=== PATIENT | female | born 1970 | race Caucasian/White ===

== ENCOUNTER 2024-11-15 18:46 | Emergency (ER) | payer OTHER, SELFPAY ==
[2024-11-15 18:48] VITALS: BP 141/41; PULSE 104; RESP 20; TEMP 37.3; O2SAT 100
--- NOTE | 2024-11-15 18:50 | ED.WOUNDLAC ---
HPI - Wound/Laceration General Chief Complaint: Skin/Abscess/Foreign Body Stated Complaint: right leg lac Source: patient and RN notes reviewed Mode of arrival: ambulatory Limitations: no limitations History of Present Illness HPI narrative: 53-year-old female with complicated medical history presents with concern for a skin tear to her right lower leg. She reports chronic edema and she bumped her leg on a box and caused a skin tear. Reports it was bleeding a lot. She denies decreased strength, sensation, range of motion of the lower extremity. Related Data Home Medications ?Medication ?Instructions ?Recorded ?Confirmed ?Last Taken ?Type albuterol sulfate 90 mcg/actuation inhalation 11/15/24 Unknown History aerosol inhaler armodafinil 250 mg tablet mg PO 11/15/24 Unknown History cyclobenzaprine 10 mg tablet mg 11/15/24 Unknown History estradiol 0.01% (0.1 mg/gram) vaginal 11/15/24 Unknown History vaginal cream estradiol 0.1 mg/24 hr semiweekly 11/15/24 Unknown History transdermal patch furosemide 20 mg tablet mg 11/15/24 Unknown History galcanezumab-gnlm 120 mg/mL mg subcut 11/15/24 Unknown History subcutaneous pen injector (Emgality Pen) hydroxyzine HCl 25 mg tablet mg 11/15/24 Unknown History ibandronate 150 mg tablet mg PO 11/15/24 Unknown History methocarbamol 500 mg tablet mg 11/15/24 Unknown History morphine 30 mg tablet,extended mg PO 11/15/24 Unknown History release oxycodone-acetaminophen 5 mg-325 tablet 11/15/24 Unknown History mg tablet potassium citrate 10 mEq (1,080 meq PO 11/15/24 Unknown History mg) tablet,extended release pregabalin 200 mg capsule mg 11/15/24 Unknown History rabeprazole 20 mg tablet,delayed mg PO 11/15/24 Unknown History release zonisamide 100 mg capsule mg PO 11/15/24 Unknown History Allergies Allergy/AdvReac Type Severity Reaction Status Date / Time propoxyphene (From Darvon) Allergy Unknown Unknown Verified 11/15/24 18:53 Review of Systems Review of Systems: CONSTITUTIONAL: Denies malaise, chills, sweats, or fever. SKIN: Reports skin tear to the right lower leg MUSCULOSKELETAL: Denies muscle skeletal pain NEUROLOGIC: Denies numbness, weakness All systems reviewed & are unremarkable except as noted in HPI and below PMFSH Comments At time of signature, agree with nursing past medical, surgical, social and family history. There is no relevant family history pertinent to the presenting complaint Exam Narrative: GENERAL: Well-appearing, well-nourished, and in no acute distress. HEAD: Normocephalic, atraumatic. EYES: PERRLA, conjunctivae clear, and EOMI. ENT: Mucous membranes moist. NECK: Supple. No lymphadenopathy CHEST: Clear to auscultation. No respiratory distress. HEART: Regular rate and rhythm. SKIN: Warm, dry. 14 cm x 8cm skin tear noted to the anterior right lower leg NEURO: Alert and oriented x3. PSYCH: Normal mood and affect Course Course Emergency Course: Patient is aware of diagnosis, understands and agrees to treatment plan. Anticipatory guidance given. Patient agrees to follow-up as directed and is aware of reasons to seek care at the emergency department. Portions of this record may have been created with voice recognition software Level of Care: Express Care Visit Vital Signs Vital signs: Reviewed. Procedures Laceration Laceration 1: Date: 11/15/24 Time: 18:52 Site: lower extremity Side (If applicable): right Size (cm): 14 Description: flap Depth: simple, single layer Pre-repair: wound explored and irrigated ====== Skin Level ====== Skin layer closed with: steri strips ====== Subcutaneous Layer ====== ====== Muscle Layer ====== ====== Tendon Layer ====== Dressing: Steri-Strips used to pull as much skin as possible to cover the wound bed, Surgicel applied to wound bed that was still exposed MDM - Wound/Laceration MDM Narrative Medical decision making narrative: Wound explored for foreign body and copious irrigation provided with no evidence of FB. There was no evidence of tendon or nerve lacerations. The wound was closed with Steri-Strips. A sterile dressing was then applied and anticipatory guidance was provided. Tetanus prophylaxis not given Differential Diagnosis Differential diagnosis: Likely laceration, abrasion and avulsion of skin Critical Care Time Critical Care Time Critical Care Time: No Discharge Plan Discharge Clinical Impression: Skin tear Patient Disposition: Home Condition: Stable Instructions: Skin Tear (ED) Additional Instructions: Leave the dressing in place for 24 hours. In 24 hours remove the outer layer of the dressing, do not pull off the inner layer of dressing as this may cause rebleeding. After 24 hours you may shower, you can let soap and water run over the wound but do not scrub it. If you can keep it dry another 48 hours it is ideal. When the paper tape strips start to get loose you can soak them off in the shower. Keep the area dressed with a nonstick dressing until it is healed. The skin will be delicate and susceptible to re-injury. If you notice signs of infection such as redness, warmth, swelling, increased pain you should follow-up with your primary care doctor for re-evaluation. Patient Language: Lithuanian Prescriptions: No Action cyclobenzaprine 10 mg tablet methocarbamol 500 mg tablet rabeprazole 20 mg tablet,delayed release (DR/EC) PO estradiol 0.1 mg/24 hr patch semiweekly morphine 30 mg tablet extended release PO zonisamide 100 mg capsule PO oxycodone-acetaminophen 5-325 mg tablet potassium citrate 10 mEq (1,080 mg) tablet extended release PO hydroxyzine HCl 25 mg tablet furosemide 20 mg tablet estradiol 0.01 % (0.1 mg/gram) cream VAGINAL albuterol sulfate 90 mcg/actuation HFA aerosol inhaler INHALATION ibandronate 150 mg tablet PO pregabalin 200 mg capsule armodafinil 250 mg tablet PO Emgality Pen 120 mg/mL pen injector SUBCUT Follow-up/Referrals: UNKNOWN,DOCTOR [Primary Care Provider] - Time of Disposition: 19:15
--- OUTSIDE RECORDS SUMMARY | 2024-11-15 18:55 | XMS_ITS | Encounter Summary ---
Author Organization [facility] Healthcare Address [address] [place] [address] Care Team Providers Care Traveling Operator Name Role Phone Marine Mayers MD Primary Care Provider Encounter Details Date Type Department Care Team (Late st Contact Info) Description 11/06/2021 Telephone [facility] [address] [place] [address] Maylin Perez MD [address] [facility] [phone] [place], [place] [id number] Social History Tobacco Use Types Packs/Day Years Used Date Smoking Tobacco: Some Days Cigarettes Started: 1994; Last attempted to quit: 2006 Smokeless Tobacco: Never Comments:couple times a hillary h Alcohol Use Standard Drinks/Week Comments No 0 (1 standard drink = 0.6 oz pur e alcohol) AUDIT-C Answer Date Recorded Q1: How often do you have a drink containing alcohol? Never 11/06/2021 Q2: How many drinks containi ng alcohol do you have on a typical day when you are drinking? Patient does not drink Q3: How often do you have si x or more drinks on one occasion? 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 Never 11/06/2021 9:47 AM Angely Wheeler RN Q2: How many drinks containing alcohol do you have on a typical day when you are drinking? Patient does not drink 11/06/2021 9:47 AM Angely Wheeler RN Q3: How often do you have six or more drinks on one occasion? Never 11/06/2021 9:47 AM Angely Wheeler RN documented as of this encounter Plan of Treatment Not on file documented as of this encounter Goals Goal Patient Goal Type Associated Problems Recent Progress Patient-Stated? Author CCM Chronic Pain Care Plan Chronic Care Management No change(09/12 12:36 PM CDT) No Madhuri Baxter Note: Problem: Chronic Pain Goals: 1. Minimize further functional decline 2. Maximize quality of life 3. Control pain Strategies: - Activity/exercise program recommendation - Conservative stepwise pain medicine strategy with multi-disciplinary approach - Recommend healthy lifestyle strategies and compensatory methods as needed Reduce the likelihood of falling Lifestyle No Marylou Dalal Note: Below are four things you can do to prevent falls: 1. Begin an exercise program to improve your leg strength & balance 2. Ask your doctor or pharmacist to review your medicines 3. Get annual eye check-ups & update your eyeglasses 4. Make your home safer by: Removing clutter & tripping hazards Putting railings on all stairs & adding grab bars in the bathroom Having good lighting, especially on stairs Contact your local community or [facility] medical center, [place] for information on exercise, fall prevention programs, or options for improving home safety. documented as of this encounter Visit Diagnoses Not on filedocumented in this encounter Care Teams Traveling Operator Relationship Specialty Start Date End Date Marine Mayers MD PCP - General 07/12/16 documented as of this encounter
--- OUTSIDE RECORDS SUMMARY | 2024-11-15 18:55 | XMS_ITS | Encounter Summary ---
Author Organization [facility] Healthcare Address [address] [place] [address] Care Team Providers Care Central Service Tech Name Role Phone Marine Mayers MD Primary Care Provider Encounter Details Date Type Department Care Team (Late st Contact Info) Description 09/22/2024 Results Follow-Up [facility] Primary Care at [facility] [address], [place] [address] Marine Mayers MD [address] [place] [address] [address] [place] [address] Dexa Axial Skeleton Bone Density 1 or 2 Site, SCREENING MAMMOGRAM BILATERAL W SHARDA Social History Tobacco Use Types Packs/Day Years Used Date Smoking Tobacco: Some Days Cigarettes 0.3 12 Started: 12/13/2010; Last attempted to quit: 12/13/2022 Smokeless Tobacco: Never Comments:Less than 5 cigaret os a month Passive Exposure Comments:5-6 cigarettes a month Alcohol Use Standard Drinks/Week Comments No 0 (1 standard drink = 0.6 oz pur e alcohol) [facility] Utilities Answer Date Recorded In the past 12 months has e electric, gas, oil, or water company threatened to shut off services in your home? No 02/26/2023 Social Connection and Isolation Panel [NHANES] A nswer Date Recorded In a typical week, how many times do you talk on the phone with family, friends, or neighbors? Patient declined 02/26/2023 How often do you get togethe r with friends or relatives? Patient declined 02/26/2023 How often do you attend oriental orthodox or caodaism serv ices? Patient declined 02/26/2023 Do you belong to any clubs o r organizations such as oriental orthodox groups, unions, fraternal or athletic groups, or school groups? Patient declined 02/26/2023 How often do you attend meet ings of the clubs or organizations you belong to? Patient declined 02/26/2023 Are you , , di vorced, , never , or living with a partner? Never 02/26/2023 AUDIT-C Answer Date Recorded Q1: How often do you have a drink containing alcohol? Never 09/21/2024 Q2: How many drinks containi ng alcohol do you have on a typical day when you are drinking? Patient does not drink Q3: How often do you have si x or more drinks on one occasion? Never 09/21/2024 Overall Financial Resource Strain (CARDIA) Answe r Date Recorded How hard is it for you to pa y for the very basics like food, housing, medical care, and heating? Not hard at all 02/26/2023 PHQ-2 Answer Date Recorded PHQ-2 Total Score (If total score is 3 or more points, staff should administer the PHQ-9) 3 08/31/2024 Hunger Vital Sign Answer Date Recorded Within the past 12 months, y ou worried that your food would run out before you got the money to buy more. Never true 03/30/20 Within the past 12 months, t he food you bought just didn't last and you didn't have money to get more. Never true 03/30/2024 PRAPARE - Transportation Answer Date Re corded In the past 12 months, has l ack of transportation kept you from medical appointments or from getting medications? No 02/12 In the past 12 months, has l ack of transportation kept you from meetings, work, or from getting things needed for daily living? No 02/26/2023 Housing Stability Vital Sign Answer Kemal e Recorded In the last 12 months, was t here a time when you were not able to pay the mortgage or rent on time? No 02/26/2023 In the last 12 months, how many places have you lived? 1 02/26/2023 In the last 12 months, was t here a time when you did not have a steady place to sleep or slept in a mcc (including now)? No 02/26/2023 PHQ-9 Answer Date Recorded PHQ-9 Total Score 7 08/31/2024 Personal Safety Answer Date Recorded Have you ever been in or are you currently in a harmful physical or emotional relationship or is someone making you feel afraid or unsafe? 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 Author CCM Chronic Pain Care Plan Chronic Care Management No change(09/12 12:36 PM CDT) No Madhuri Baxetr Note: Problem: Chronic Pain Goals: 1. Minimize [...] on stairs Contact your local community or senior center for information on exercise, fall prevention programs, or options for improving home safety. documented as of this encounter Visit Diagnoses Not on filedocumented in this encounter Care Teams Central Service Tech Relationship Specialty Start Date End Date Marine Mayers MD PCP - General 07/12/16 documented as of this encounter
--- OUTSIDE RECORDS SUMMARY | 2024-11-15 18:55 | XMS_ITS | Encounter Summary ---
Author Organization [facility] Healthcare Address [address] [place] [address] Care Team Providers Care Assistant Professor Nurse Education Name Role Phone Marine Mayers MD Primary Care Provider Encounter Details Date Type Department Care Team (Late st Contact Info) Description 09/30/2022 Orders Only [facility] [place] [facility] [address] [place] [address] Teresa Piña RN Social History Tobacco Use Types Packs/Day Years Used Date Smoking Tobacco: Some Days Cigarettes 0.1 12 Started: 1994; Last attempted to quit: 2006 Smokeless Tobacco: Never Comments:4 cigarettes per mo nt Passive Exposure Comments:5-6 cigarettes a month Alcohol Use Standard Drinks/Week Comments No 0 (1 standard drink = 0.6 oz pur e alcohol) AUDIT-C Answer Date Recorded Q1: How often do you have a drink containing alcohol? Never 07/29/2022 Q2: How many drinks containi ng alcohol do you have on a typical day when you are drinking? Patient does not drink Q3: How often do you have si x or more drinks on one occasion? Never 07/29/2022 PHQ-2 Answer Date Recorded PHQ-2 Total Score (If total score is 3 or more points, staff should administer the PHQ-9) 6 07/03/2022 Hunger Vital Sign Answer Date Recorded Within the past 12 months, y ou worried that your food would run out before you got the money to buy more. Patient declined Within the past 12 months, t he food you bought just didn't last and you didn't have money to get more. 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 Gender Identity Female 11/17/2020 1:49 PM CDT Sexual Orientation Straight 03/07/2019 4: 08 AM METER INSTALLER documented as of this encounter Plan of [...] Diagnoses Not on filedocumented in this encounter Orders Medications Ordered That Dejan ht Not Have Been Administered Count Last Ordered Date First Ordered Date iohexoL (OMNIPAQUE) 300 mg i odine/mL injection solution 1.5 mL 1 09/30/2022 lidocaine PF (XYLOCAINE) 10 mg/mL (1 %) preservative free injection 100 mg 1 09/30/2022 ROPivacaine (NAROPIN) 2 mg/m L (0.2 %) preservative free injection 8 mg 1 09/30/2022 triamcinolone (KENALOG) 40 m g/mL injection 80 mg 1 09/30/2022 documented in this encounter Care Teams Assistant Professor Nurse Education Relationship Specialty Start Date End Date Marine Mayers MD PCP - General 07/12/16 documented as of this encounter
--- OUTSIDE RECORDS SUMMARY | 2024-11-15 18:55 | XMS_ITS | Referral Summary ---
Author Organization [facility] Address [address] [facility] [place] [address] Care Team Providers Care Chief I Dispatcher Name Role Phone Marine Mayers MD Primary Care Provider [phone] Encounters Date Type Department Care Team Description 11/03/[address] [facility] [facility] [address] [facility] [address] [place], [place] [id number] Maylin Perez MD Sacroiliitis (Primary Dx); Sacroiliac dysfunction 10/27/2024 Telephone [facility] [address] [facility] [address] [place] [address] Cassidy Aparicio [employer]FT [employer] Switch patch 09/22/2024 Results Follow-Up [facility] at [facility] [address] [facility] [address] [place] [address] Marine Mayers MD Dexa Axial Skeleton Bone Density 1 or 2 Site, SCREENING MAMMOGRAM BILATERAL W SHARDA 09/22/2024 12:48 PM CDT - 09/22/2024 11:59 PM CDT Hospital Encounter [facility] [address] [place] [address] Discharge Disposition: Discharge to home or self care 09/22/2024 12:30 PM CDT - 09/22/2024 11:59 PM CDT Hospital Encounter [facility] [address] [place] [address] Encounter for breast cancer screening using non-mammogram modality; Vitamin D deficiency; Other specified disorders of bone density and structure, multiple sites Discharge Disposition: Discharge to home or self care 09/21/2024 12:12 PM CDT - 09/21/2024 11:59 PM CDT Hospital Encounter [facility] [address] [place] [address] Advanced Medicine [address] [place] [address] Maylin Perez MD Chronic bilateral low back pain with bilateral sciatica; Sacroiliitis Discharge Disposition: Discharge to home or self care 09/17/[address] [facility] [address] [place] [address] [facility] [address] [place] [address] Maylin Perez MD PMC Preprocedure 09/15/[address] [facility] [address] [place] [address] [facility] [address] [place] [address] Maylin Perez MD 09/13/2024 Results Follow-Up [facility] [address] [place] [address] [address] [place] [address] Cassidy Aparicio NP Pap only 09/09/[address] [facility] [facility] [address] [place] [address] Maylin Perez MD Sacroiliitis (Primary Dx) 09/03/2024 Telephone [facility] [address] [place] [address] [address] [place] [address] Cassidy Aparicio NP Vaginal Pap Smear 08/31/2024 3:00 PM CDT Office Visit [facility] [address] [place] [address] [address] [place] [address] Cassidy Aparicio NP Well woman exam (Primary Dx); Routine gynecological examination; Hormone replacement therapy (HRT); Encounter for screening mammogram for breast cancer 08/18/[address] [facility] General Neurology [address] [facility] 6[address] [place] [address] Mina Owen MD Armodafinil PA Renewal from Last 3 Months Allergies Active Allergy Reactions Criticality Noted Date Comments Naproxen Sodium Shortness of breath High 12/20/2020 Pt denies. Neck pain, JARA, upset stomach Atorvastatin Muscle pain Medium 12/20/2020 Hips and lower spine Bisacodyl Itching Medium Carvedilol Hypotension,Fatig ue High Not an allergy. Adverse effect due to known effects on blood pressure. Dextroamphetamine-Ampheta mine Other (See comments) Medium Manic episode Duloxetine Other (See comments) High Parkinson's symptoms. Dexmethylphenidate Other (See comments) Low 12/20/2020 XR , stomach pain, exacerbated migraines Hydroxyzine Pamoate Other (See comments) High 12/20/2020 Unsure of her exact reaction Lamotrigine Itching Medium [place]is Other (See comments) Low Incontinence Methylphenidate Other (See comments) Medium Manic episode Nsaids (Non-Steroidal Anti-Inflammatory Drug) Other (See comments) Low Hs of acute kidney failure Other Hives Medium 07/04/2020 Chicken pox virus Paroxetine Other (See comments) Low Ineffective and heightened side effects such as anhedonia Propoxyphene Itching Medium Phenazopyridine Itching,Other (See comments) Low Reaction: Itching, , Reaction: itching, Ketorolac Other (See comments) Low 01/06/2017 If taking more than 7 days in a row Tricyclic Antidepressants And Tricyclic Compounds Other (See comments) Low Caused a feeling of detachment Valsartan Hypotension High Venlafaxine Other (See comments) High Hypertension. Lisdexamfetamine Other (See comments) Low 01/06/2017 SOB, severe JARA, heart racing, blurry vision, hallucinations in peripheral, occasional insomnia Wool Itching Low 01/31/2010 Ezetimibe Other (See comments) Low 12/29/2017 Bones ache and muscle aches Medications fluoride, sodium, (CLINPRO 5000) 1.1 % paste as directed 0 0 11/02/19 15 Active cetirizine (ZyrTEC) 10 mg tabletIndicatio ns:Seasonal Allergic Rhinitis Take 1 tablet (10 mg total) by mouth 2 (two) times a day Pt taking prn. Active cholecalciferol (VITAMIN D-3) 1,000 unit Take 4 tablet/capsul e (4,000 Units total) by mouth nightly Active red yeast rice 600 mg tabletIndicatio ns:supplement Take 2 tablets by mouth nightly Active multivitamin tabletIndicatio ns:Vitamin Deficiency Prevention Take 1 tablet by mouth nightly Active walker miscIndications :Spinal stenosis of lumbar region, unspecified whether neurogenic claudication present 1 Units once for 1 dose Rollator with seat - and brakes And basket Provider plus in [place] 1 each 1 05/22/19 22 Active aspirin 81 mg enteric coated tablet Take 1 tablet (81 mg total) by mouth daily Active furosemide (LASIX) 20 mg tablet Take 1 tablet (20 mg total) by mouth daily as needed (swelling) 90 tablet 3 10/06/[address] (ACIPHEX) 20 mg EC tablet TAKE 1 TABLET BY MOUTH EVERY DAY 90 tablet 3 12/01/19 24 Active magnesium oxide 500 mg capsule Take by mouth A ctive ibandronate (BONIVA) 150 mg tablet Take 1 tablet (150 mg total) by mouth every 30 (thirty) days Take in AM with glass of water prior to food, don't lie down nor eat for 60 minutes. 3 tablet 3 12/31/19 24 025 Active albuterol HFA (PROVENTIL HFA,VENTOLIN HFA,PROAIR HFA) 90 mcg/actuation inhaler Inhale 2 puffs every 6 (six) hours as needed for wheezing 3 each 12/31/19 24 025 Active naloxone (NARCAN) 4 mg/actuation spray,non-aeros ol Administer 1 spray into affected nostril(s) as needed for opioid reversal Call 911. Administer a single spray in one nostril. Repeat every 3 minutes as needed if no or minimal response. 1 each 01/01/20 24 Active galcanezumab-gn lm (Emgality Pen) 120 mg/mL pen injector Inject 1 mL under the skin every 30 (thirty) days 1 mL 04/20/19 25 Active SUMAtriptan (IMITREX) 100 mg tablet Take 1 tablet (100 mg total) by mouth once as needed for migraine for up to 1 dose 9 tablet 20 25 Active zonisamide (ZONEGRAN) 100 mg capsule Take 1 capsule every day in the evening. 90 capsule 3 04/20/19 25 Active spironolactone (ALDACTONE) 25 mg tablet Take 1 tablet (25 mg total) by mouth 2 (two) times a day 60 tablet 11 05/03/19 25 Active cyclobenzaprine (FLEXERIL) 10 mg tablet Take 1 tablet (10 mg total) by mouth 3 (three) times a day as needed for muscle spasms for muscle spasms 90 tablet 11 06/04/19 25 Active armodafiniL (NUVIGIL) 250 mg tablet TAKE 1 TABLET BY MOUTH ONCE DAILY NEEDED 30 tablet 5 08/17/19 25 Active methocarbamoL (ROBAXIN) 500 mg tablet Take 1 tablet (500 mg total) by mouth 4 (four) times a day as needed for muscle spasms 120 tablet 11 08/31/19 25 Active hydrOXYzine (ATARAX) 25 mg tablet TAKE 2 TABLETS BY MOUTH 2 TIMES A DAY. 360 tablet 3 09/09/19 25 Active pregabalin (LYRICA) 200 mg capsule Take 1 capsule (200 mg total) by mouth 3 (three) times a day 90 capsule 3 09/16/19 25 Active estradioL (ESTRACE) 0.01 % (0.1 mg/gram) vaginal cream Insert 1/2 gram vaginally every night for 1 week, then Friday// Friday. 42.5 g 5 10/05/19 25 026 Active potassium citrate ER (UROCIT-K) 10 mEq (1,080 mg) CR tablet TAKE 2 TABLETS BY MOUTH TWICE A DAY 120 tablet 6 10/26/19 25 Active estradioL (CLIMARA) 0.1 mg/24 hrIndications:V asomotor Symptoms associated with Menopause Place 1 patch on the skin once a week for 7 days 4 patch 2 10/28/19 25 Active promethazine (PHENERGAN) 25 mg tablet TAKE 1 TABLET BY MOUTH EVERY 8 HOURS NEEDED FOR NAUSEA AND VOMITING 90 tablet 2 10/30/19 25 Active oxyCODONE-aceta minophen (PERCOCET) 5-325 mg per tabletIndicatio ns:Pain Take 1 tablet by mouth every 6 (six) hours as needed for pain 120 tablet 11/05/19 25 Active morphine ER (MS CONTIN) 30 mg 12 hr tablet Take 1 tablet (30 mg total) by mouth 3 (three) times a day 90 tablet 11/05/19 25 Active potassium citrate ER (UROCIT-K) 10 mEq (1,080 mg) CR tablet TAKE 2 TABLETS BY MOUTH TWICE A DAY 400 tablet 1 03/20/20 24 025 Discontinued promethazine (PHENERGAN) 25 mg tablet TAKE 1 TABLET BY MOUTH EVERY 8 HOURS NEEDED FOR NAUSEA OR VOMITING. 120 tablet 1 09/01/19 25 025 Discontinued oxyCODONE-aceta minophen (PERCOCET) 5-325 mg per tabletIndicatio ns:Pain Take 1 tablet by mouth every 6 (six) hours as needed for pain 120 tablet 10/05/19 25 025 Discontinued(R eorder) morphine ER (MS CONTIN) 30 mg 12 hr tablet Take 1 tablet (30 mg total) by mouth 3 (three) times a day 90 tablet 10/05/19 25 025 Discontinued(R eorder) estradioL (VIVELLE-DOT) 0.1 mg/24 hrIndications:V asomotor Symptoms associated with Menopause Place one patch on the skin twice weekly. 24 patch 1 10/05/19 25 025 Discontinued(A lternate therapy) Active Problems Problem Noted Date Diagnosed Date Sacroiliitis 11/03/2024 Mild intermittent asthma 12/30/2023 Overview (12/30/2023): She uses albuterol as needed Assessment & Plan (07/12/2024 1:52 PM CDT): Stay on albuterol as needed Assessment & Plan (12/30/2023 3:47 PM CDT): Stay on albuterol as needed Hypoxemia 08/04/2023 History of colon polyps 03/02/2023 Rectal prolapse 02/25/2023 Overview (06/23/2023): She's going to get repair in September [address] Mia Marc Assessment & Plan (06/23/2023 2:36 PM CDT): She's going to get the surgical repair in Dr. Mia Marc Hypokalemia 02/25/2023 Urinary incontinence 09/13/2022 Overview (01/14/2023): The patient has incontinence and has been evaluated by PT who is recommending a pelvic floor stimulator to help treat her symptoms of urgency and leaking. She has a weak abodominal and pelvic musculature and difficult to improve with back issues. She's doing the pelvic floor therapy and it's helping with urinary incontinence. She's also using the rectal probe but sometimes it's a little painful. She still has some fecal incontinence. She doesn't know if this is going to help enough and she may still need the recommended surgery. Assessment & Plan (01/14/2023 10:28 AM CDT): Recommed the pelvic floor stimulator and this will help improve her symptoms. Follow up again with the surgeon to evaluate for other options. Assessment & Plan (09/13/2022 10:23 AM CDT): Recommed the pelvic floor stimulator and this will help improve her symptoms. Weight loss 09/02/2022 Overview (09/02/2022): She's lost weight over the past 3 years unintentionally 25+ pounds. She was as high as 212 at one point. She did eat a lot of chocolate and she's stopped that altogether. She can eat other things in moderation. Assessment & Plan (09/02/2022 3:41 PM CDT): We should make sure you are on your cancer screening. Due for colonoscopy 02/2022 in the fall and due for mammogram in 09/2022. Spinal cord stimulator status 11/06/2021 Sacroiliac dysfunction 10/02/2021 Other specified disorders of bone density and structure, multiple sites 07/02/2021 Overview (07/12/2024): No falls nor fractures Assessment & Plan (07/12/2024 1:50 PM CDT): On vit D 2000 international units per day and ibandronate monthly HPV vaccine counseling 04/26/2021 Assessment & Plan (04/26/2021 3:41 PM STITCH BURNISHER): HPV counseling given. Patient would like vaccine series. Informed patient per ACIP guidelines, vaccine only available up to age 46. Patient states pharmacy instructed her if she brought her pap results and a written rx for HPV vaccine from her provider, that she could get vaccine (off label). Await pap results. Acute right-sided low back pain 07/18/2020 Acute postoperative pain 07/18/2020 Chronic bilateral low back pain with bilateral s ciatica 05/22/2020 Major depressive disorder, recurrent episode, mo derate 05/08/2020 Vertical strabismus of left eye 03/21/2020 Assessment & Plan (03/21/2020 5:25 PM STITCH BURNISHER): Excellent horizontal eye alignment with small over correction vertical strabismus. Prism bifocal spectacles to be prescribed. Patient wishes to pursue further strabismus surgery. Medicare annual wellness visit, subsequent 03/13 Overview (07/12/2024): Overall stable back pain. Quit tobacco 1ppd in 2006 and now rare cigarettes - quit for surgery for rectal prolapse surgery in 10/06. Mammogram 09/2023, due in 2024 Colonoscopy 02/2023 polyps due again in 02/2026 Flu annually 2023 Tdap 12/2019 DEXA 11/29 normal DEXA due now Assessment & Plan (06/23/2023 2:33 PM CDT): Assessment & Plan: I recommend that you follow a diet that is high in fruits, vegetables, and lean meat such as chicken or turkey. Would avoid processed foods which can be high in sugar and salt.. I recommend using beneficial fats such as olive oil, nuts, seeds, and fish. Would avoid saturated animal fats. Please stay physically active to the extent that you are able. If you have not received communication about test results within 7 days of the test being performed, please contact the office. Add exercise as tolerated Increase fruits and vegetables 4-5 servings a day Order Routine labs drawn Follow up 1 year, sooner if needed Take medications as directed Sign up for [email or web address] to see your results and/or send messages Assessment & Plan (07/03/2022 10:14 AM CDT): Assessment & Plan: I recommend that you follow a diet that is high in fruits, vegetables, and lean meat such as chicken or turkey. Would avoid processed foods which can be high in sugar and salt.. I recommend using beneficial fats such as olive oil, nuts, seeds, and fish. Would avoid saturated animal fats. Please stay physically active to the extent that you are able. If you have not received communication about test results within 7 days of the test being performed, please contact the office. Add exercise as tolerated Increase fruits and vegetables 4-5 servings a day Order Routine labs drawn Follow up 1 year, sooner if needed Take medications as directed Sign up for [email or web address] to see your results and/or send messages Assessment & Plan (07/02/2021 9:18 AM CDT): Assessment & Plan: I recommend that you follow a diet that is high in fruits, vegetables, and lean meat such as chicken or turkey. Would avoid processed foods which can be high in sugar and salt.. I recommend using beneficial fats such as olive oil, nuts, seeds, and fish. Would avoid saturated animal fats. Please stay physically active to the extent that you are able. If you have not received communication about test results within 7 days of the test being performed, please contact the office. Add exercise as tolerated Increase fruits and vegetables 4-5 servings a day Order Routine labs drawn Follow up 1 year, sooner if needed Take medications as directed Sign up for [email or web address] to see your results and/or send messages Assessment & Plan (03/13/2020 1:27 PM STITCH BURNISHER): Assessment & Plan: I recommend that you follow a diet that is high in fruits, vegetables, and lean meat such as chicken or turkey. Would avoid processed foods which can be high in sugar and salt.. I recommend using beneficial fats such as olive oil, nuts, seeds, and fish. Would avoid saturated animal fats. Please stay physically active to the extent that you are able. If you have not received communication about test results within 7 days of the test being performed, please contact the office. Add exercise as tolerated Increase fruits and vegetables 4-5 servings a day Order Routine labs drawn Follow up 1 year, sooner if needed Take medications as directed Sign up for [email or web address] to see your results and/or send messages Lumbar foraminal stenosis 12/13/2019 Overview (06/23/2023): She takes methacarbamol during the day and morphine tid and cyclobenzaprine at night time. She's going to get a nerve ablation Assessment & Plan (06/23/2023 2:33 PM CDT): She takes methacarbamol during the day and morphine tid and cyclobenzaprine at night time. She's going to get a nerve ablation Assessment & Plan (03/25/2023 10:10 AM STITCH BURNISHER): The patient apparently has been discussing using cannabinoids with her other physicians. Apparently was advised that she can use this for pain. I advised her against smoking or vaping the substance due to pulmonary issues. 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 Defective binocularity visual confusion and diplopia. Strabismus surgery to be performed. Vertical strabismus of right eye 12/09/2019 Intractable chronic migraine without aura and without status migrainosus 09/13/2019 Assessment & Plan (02/26/2022 10:18 AM STITCH BURNISHER): The patient is a 51-year-old female with migraine headaches. At this point she is doing very well on her current dose zonisamide and Emgality. I renewed both medications for her. I also renewed her sumatriptan. As long as things continue to do well she can follow up with me annually. She is to contact me in the interim with any concerns or questions. This was a telemedicine visit with Ms. Judge which took place via tele doc During the visit, I was located in my office and the patient was located at home in the [facility]. The patient visit started at 10:00 a.m. and ended at 10:18 a.m.. The patient has been informed that the visit may not be secure and acknowledged the information. I have explained the option of participating in a telephone or video visit during the [facility]-19 public health emergency to the patient. After being given an opportunity to ask questions about and discuss this type of visit, the patient verbally consented to proceeding with the telephone/video visit. The patient understands that this service replaces an office visit and they may be billed and/or responsible for any applicable copayments. Patrick Blount MD I have explained the option of participating in a telephone or video visit during the [facility]-19 public health emergency to the patient. After being given an opportunity to ask questions about and discuss this type of visit, the patient verbally consented to proceeding with the telephone/video visit. The patient understands that this service replaces an office visit and they may be billed and/or responsible for any applicable copayments. @SIGENC2@ @WI@ Assessment & Plan (04/24/2021 2:13 PM STITCH BURNISHER): The patient is a 50-year-old female with migraine headaches. At this point she is doing very well with her current regimen. She is tolerating the medication well and only experiencing about 2 migraines per month. They are adequately aborted with sumatriptan and naproxen. She is trying to deal with dental issues using the dental school but it is a relatively slow process. This should reduce her headaches further once it is complete. I will plan on seeing her back in 6 months though I encouraged her to contact me in the interim with any concerns or questions.This was a telemedicine visit with Ms. Judge which took place via tele doc During the visit, I was located in my office and the patient was located at home in the [facility]. The patient visit started at 1:47 p.m. and ended at 2:18 p.m.. The patient has been informed that the visit may not be secure and acknowledged the information. I have explained the option of participating in a telephone or video visit during the COVID-19 public health emergency to the patient. After being given an opportunity to ask questions about and discuss this type of visit, the patient verbally consented to proceeding with the telephone/video visit. The patient understands that this service replaces an office visit and they may be billed and/or responsible for any applicable copayments. Patrick Blount MD I have explained the option of participating in a telephone or video visit during the COVID-19 public health emergency to the patient. After being given an opportunity to ask questions about and discuss this type of visit, the patient verbally consented to proceeding with the telephone/video visit. The patient understands that this service replaces an office visit and they may be billed and/or responsible for any applicable copayments. @SIGENC2@ @WI@ Assessment & Plan (12/05/2020 8:30 AM CDT): The patient continues to have severe migraines. The past we have had her on Aimovig 140 mg monthly. This did not have the same benefit as Emgality, so we are going to switch her back to that. I will arrange for to have starter kit set aside at the office. I have sent in a prescription for her maintenance dose. I am also going to put her on zonisamide as she has had significant efficacy from Topamax in the past. This may, in addition reduce her migraines, also potentially reduce the apneic episodes she experiences the night. I will see her back in approximately 2-3 months. This was a telemedicine visit with Ms. Judge which took place via tele doc During the visit, I was located in my office and the patient was located at home in the [facility]. The patient visit started at 7:55 a.m. and ended at 8:30 a.m.. The patient has been informed that the visit may not be secure and acknowledged the information. I have explained the option of participating in a telephone or video visit during the COVID-19 public health emergency to the patient. After being given an opportunity to ask questions about and discuss this type of visit, the patient verbally consented to proceeding with the telephone/video visit. The patient understands that this service replaces an office visit and they may be billed and/or responsible for any applicable copayments. Patrick Blount MD I have explained the option of participating in a telephone or video visit during the COVID-19 public health emergency to the patient. After being given an opportunity to ask questions about and discuss this type of visit, the patient verbally consented to proceeding with the telephone/video visit. The patient understands that this service replaces an office visit and they may be billed and/or responsible for any applicable copayments. 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 Has base issues with eye balance Additionally, there may be some contribution of tear film irreg. Will try to adapt to prism in glasses Reassure no medical issues found on exam today Myopia of both eyes with astigmatism 06/25/2019 Assessment & Plan (06/25/2019 12:44 PM CDT): Persistent right hypertropia and exotropia. Patient not improved with Fresnel spectacle wear. Does not want to wear spectacles. Other mechanical strabismus 06/25/2019 Hypertropia of right eye 06/23/2019 Overview (01/23/2021): Surgery x 2 with LTychsen Assessment & Plan (01/23/2021 9:15 AM CDT): Surgery x 2 with Wilfredo Feels that eyes still want to cross all the time. Has some residual shadowing and diplopia. In glasses with prism- Just got on thurs and can't tell if they are helping. Released by Wilfredo/Lee Osorio Assessment & Plan (11/10/2020 11:05 AM CDT): Improved s/p strabismus surgery. Will increase bifocal. If still having problems, pt to call and get in to fit with prism. Assessment & Plan (06/25/2019 12:39 PM CDT): Persistent right hypertropia and exotropia. Patient not improved with Fresnel spectacle wear. Strabismus surgery to be scheduled. Symptomatic cholelithiasis 06/03/2019 Overview (06/03/2019): Added automatically from request for surgery [id number] Assessment & Plan (06/22/2019 9:07 AM CDT): Diet as tolerated. Okay to return to work with light duty. No heavy lifting greater than 20 lb for 4 weeks. No submerging incisions for 4 weeks. Please call for any further questions or concerns. Assessment & Plan (06/03/2019 9:54 AM STITCH BURNISHER): Given the findings on imaging and clinical history I will set the patient up for cholecystectomy. Risks and benefits have been explained to include bleeding, infection and post cholecystectomy diarrhea. Pre-admission testing will be sent in. Consent to be signed. Type and screen to be ordered. All questions have been answered. Postlaminectomy syndrome 04/28/2019 Periumbilical abdominal pain 04/26/2019 Assessment & Plan (04/26/2019 11:49 AM STITCH BURNISHER): Occurs intermittently and describes as sharp/burning. Pt says it has improved recently. Pt has had EGD and colonoscopy without explanation of pain. She does have fibromyalgia and back issues which makes this pain likely neuropathic. Pt is already taking lyrica and narcotics for fibro/chronic pain. Will order CT of abdomen with contrast to complete workup. Gastroparesis 04/26/2019 Assessment & Plan (04/26/2019 11:13 AM STITCH BURNISHER): Likely due to polypharmacy including chronic narcotic use. Pt was found to have retained food on EGD suggesting gastroparesis. Discussed importance of sticking to low fat, low fiber meals and eating 5-6 small meals throughout the day. Will also try patient on Reglan 5mg TID prior to meals. She denies past history of seizures, movement disorders, or other neuro disorders. Nausea without vomiting 04/26/2019 Assessment & Plan (04/26/2019 12:01 PM STITCH BURNISHER): See gastroparesis for plan Hormone replacement therapy (HRT) 02/14/2019 Assessment & Plan (09/07/2024 8:05 AM CDT): Risks and benefits of hormone replacement (HRT) for vasomotor symptoms related to menopause discussed. Patient aware risks associated with HRT include increased risk of blood clots, heart attack, stroke, and increased risk of breast cancer. Patient verbalizes understanding of risk and benefits and wishes to proceed with HRT. - Continue estradiol 1 mg daily. Patient/pharmacy to call when refill needed. Assessment & Plan (09/04/2023 4:27 PM CDT): Risks and benefits of hormone replacement (HRT) for vasomotor symptoms related to menopause discussed. Patient aware risks associated with HRT include increased risk of blood clots, heart attack, stroke, and increased risk of breast cancer. Patient verbalizes understanding of risk and benefits and wishes to proceed with HRT. Assessment & Plan (03/19/2022 6:08 PM STITCH BURNISHER): Risks vs benefits of HRT discussed such as increased risk of blood clots leading to possible heart attack, stroke, and increased risk of breast cancer; pt. verbalizes understanding and wishes to proceed with HRT. Assessment & Plan (04/26/2021 3:19 PM STITCH BURNISHER): Risks vs benefits of HRT discussed such as increased risk of blood clots leading to possible heart attack, stroke, and increased risk of breast cancer; pt. verbalizes understanding and wishes to proceed with HRT. Refills sent to pharmacy. Assessment & Plan (02/14/2019 11:58 AM STITCH BURNISHER): Continue estradiol as directed. Risks vs benefits of HRT discussed such as increased risk of blood clots leading to possible heart attack, stroke, and increased risk of breast cancer; pt. verbalizes understanding and wishes to proceed with HRT. Lower abdominal pain 02/10/2019 Overview (02/10/2019): Added automatically from request for surgery [id number] Assessment & Plan (02/10/2019 2:57 PM CDT): Pt says the pain feels like it is raw so it kind of saldaña. She is weaning off of methadone and on multiple pain medications. She also gets constipated easily. Colonoscopy. She did mention that she has a history of endometriosis and had surgery a few years ago which helped the pain related to this. Pt says the pain does feel similar to when she was having adhesions due to endometriosis. I told her we will rule out GI origin but encouraged her to follow up with a Solid Waste Analyst doctor as well. Dysphagia 02/10/2019 Overview (02/10/2019): Added automatically from request for surgery [id number] Assessment & Plan (04/26/2019 11:59 AM STITCH BURNISHER): Pt says no recent issues with swallowing. Will refer to ENT if this issue re- occurs. Assessment & Plan (02/10/2019 2:54 PM CDT): Patient has issues with choking on my own spit about 3-4 times a week. She says it has occurred more often recently. Will setup EGD. Drug-induced constipation 02/10/2019 Assessment & Plan (04/26/2019 11:59 AM STITCH BURNISHER): Pt says she is having BM almost everyday but is having 1-2 on [place] stool scale. Likely due to chronic narcotic use. Will have patient use Miralax for constipation. Assessment & Plan (02/10/2019 2:55 PM CDT): Pt on narcotic medications which is likely causing issues with constipation. She uses Mineral oil which helps sometimes. Advised to take Miralax daily and she can use mineral oil as needed along with Miralax for more severe constipation. Other hemorrhoids 02/10/2019 Assessment & Plan (02/10/2019 2:53 PM CDT): Pt says she feels something popping out from time to time when she wipes. Upon exam, I do not see any external hemorrhiods so likely due to internal. Will have her try prep H suppositories. Colonosocopy will be setup. Chronic use of opiate for therapeutic purpose Overview (01/14/2023): She's using these under the guidance of pain management. Assessment & Plan (01/14/2023 10:29 AM CDT): Continue to follow up with pain management. Per the pain management doctor she's going to try medical marijuana and she's doing this to try and reduce her opioid use. 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 Assessment & Plan (12/30/2017 7:35 PM CDT): BMI Follow-up includes: exercise counseling. Shortness of breath 12/29/2017 Overview (12/29/2017): She notes occasional dyspnea, on exam decreased breath sounds on the lef Assessment & Plan (12/29/2017 1:27 PM CDT): -check cxray Diplopia 01/06/2017 Assessment & Plan (06/25/2019 12:40 PM CDT): Persistent right hypertropia and exotropia. Patient not improved with Fresnel spectacle wear. Strabismus surgery to be scheduled. 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 Still with chronic pain. Mammogram 03/02 Colonoscopy due now Flu annually 11/30 Tdap 10/26 DEXA 11/28 normal I have reviewed the Medicare Wellness Questionnaire/Health Risk Assessment and discussed it with the patient. Paper form scanned into the electronic record. The patient was given a copy of the medicare prevention plan outlining medical conditions, risk factors and status of prevention measures. The patient filled out a depression screen, functional assessment screen, health risk assessment and other physicians list. All elements of the exam were completed as outlined by [facility] Assessment & Plan (03/08/2019 1:45 PM STITCH BURNISHER): I have reviewed the Medicare Wellness Questionnaire/Health Risk Assessment and discussed it with the patient. Paper form scanned into the electronic record. The patient was given a copy of the medicare prevention plan outlining medical conditions, risk factors and status of prevention measures. The patient filled out a depression screen, functional assessment screen, health risk assessment and other physicians list. All elements of the exam were completed as outlined by CMS Assessment & Plan: I recommend that you follow a diet that is high in fruits, vegetables, and lean meat such as chicken or turkey. Would avoid saturated animal fats. Please stay physically active to the extent that you are able. If you have not received communication about test results within 7 days of the test being performed, please contact the office. Follow up 1 year, sooner if needed Take medications as directed Sign up for [email or web address] to see your results and/or send messages Assessment & Plan (12/30/2017 7:30 PM CDT): I have reviewed the Medicare Wellness Questionnaire/Health Risk Assessment and discussed it with the patient. Paper form scanned into the electronic record. The patient was given a copy of the medicare prevention plan outlining medical conditions, risk factors and status of prevention measures. The patient filled out a depression screen, functional assessment screen, health risk assessment and other physicians list. All elements of the exam were completed as outlined by [facility] Assessment & Plan: I recommend that you follow a diet that is high in fruits, vegetables, and lean meat such as chicken or turkey. Would avoid saturated animal fats. Please stay physically active to the extent that you are able. If you have not received communication about test results within 7 days of the test being performed, please contact the office. Follow up 1 year, sooner if needed Take medications as directed Sign up for [email or web address] to see your results and/or send messages Bilateral leg edema 12/23/2016 Overview (01/14/2023): Related to inactivity and improves by morning after elevation. She's sleeping in a chair about 4 days per week. Legs can be elevated. She takes triam/hctz once per day. Swelling improved. She has some intermittent SOB but that's mostly during the night with her central sleep apnea and uses the 1 L of oxygen at night time. The furosemide is helpful and needed about 1/2 of the days of the week. Assessment & Plan (07/12/2024 1:45 PM CDT): Stable on the spironolactone 50 mg per day. Once you are on the triam/hctz you could see if the hair loss diminshes some and then increase the furosemide as needed to control swelling Assessment & Plan (12/30/2023 3:37 PM CDT): You could stop the triam/hctz and do a trial of spironolactone 25 mg per day. Once you are on the triam/hctz you could see if the hair loss diminshes some and then increase the furosemide as needed to control swelling Assessment & Plan (06/23/2023 2:38 PM CDT): Stay on the triamterene and the furosemide as needed. Get LE doppler Assessment & Plan (01/14/2023 10:32 AM CDT): I would stay on the triam/hctz daily and add furosemide 3-5 days to see if it helps. One banana per day when you are on it. Keep a low salt diet. Stay on the potassium and magnesium supplement as needed for cramping. Assessment & Plan (09/02/2022 3:34 PM CDT): I would stay on the triam/hctz daily and add furosemide 3-5 days to see if it helps. One banana per day when you are on it. Keep a low salt diet. Assessment & Plan (09/26/2020 12:05 PM CDT): Stay on triamterene/hctz daily as needed Assessment & Plan (03/14/2020 7:52 PM STITCH BURNISHER): Stay on triam/hctz once per day Assessment & Plan (03/08/2019 1:33 PM STITCH BURNISHER): Continue the triamterene/hctz and continue low salt exercise. Assessment & Plan (12/23/2016 1:57 PM CDT): -trial of triam/hctz 1/2 tablet per day as needed for swelling Fibrositis 11/06/2015 Overview (07/17/2016): Fibromyalgia Anxiety 11/06/2015 Overview (07/18/2016): Anxiety Atypical migraine 11/06/2015 Overview (03/08/2019): Chronic migraine without aura -she takes imitrex mixed with anaprox and promethazine and takes as needed and gets migraines 1-2 times per week. -her vision problems sometimes precipitate some of her migraines -she's now on anti-migraines shots and they help her some but they have been too expensive for her. -sees neurology every 6 months Assessment & Plan (04/20/2024 10:36 AM STITCH BURNISHER): The patient is a 53-year-old female with migraine headaches. This point she does fairly well on Emgality and zonisamide for prevention. She also uses sumatriptan and naproxen for rescue purposes. If she has a persistent refractory headache, asked her to contact me and we can try a Medrol Dosepak. Recently she had a 5 day migraine that did not resolve with her typical rescue medications. With the thought that that is atypical for her, I will plan on following up with her annually. I asked her to contact me if she does have another episode similar to the recent refractory headache. All questions were answered. This was a telemedicine visit with Ms. Judge which took place via tele doc During the visit, I was located in my office and the patient was located at her friend's house in the [facility]. The patient visit started at 8:45 a.m. and ended at 10:00 a.m.. The patient has been informed that the visit may not be secure and acknowledged the information. I have explained the option of participating in a telephone or video visit during the [facility]- public [facility] emergency to the patient. After being given an opportunity to ask questions about and discuss this type of visit, the patient verbally consented to proceeding with the telephone/video visit. The patient understands that this service replaces an office visit and they may be billed and/or responsible for any applicable copayments. Patrick Blount MD I have explained the option of participating in a telephone or video visit during the COVID-19 public health emergency to the patient. After being given an opportunity to ask questions about and discuss this type of visit, the patient verbally consented to proceeding with the telephone/video visit. The patient understands that this service replaces an office visit and they may be billed and/or responsible for any applicable copayments. @SIGENC2@ @ME@ Assessment & Plan (06/23/2023 2:37 PM CDT): The patient is doing very well on a combination of zonisamide and Emgality for her migraines and follow up with Dr. Blount Assessment & Plan (03/25/2023 10:09 AM STITCH BURNISHER): The patient is doing very well on a combination of zonisamide and Emgality for her migraines. I renewed both medications for her today. She has sumatriptan use rescue purposes. I will plan on seeing her back in 1 year. This was a telemedicine visit with Ms. Judge which took place via tele doc During the visit, I was located in my office and the patient was located at her friend's house in the state [facility]. The patient visit started at 9:57 a.m. and ended at 10:11 a.m.. The patient has been informed that the visit may not be secure and acknowledged the information. I have explained the option of participating in a telephone or video visit during the [facility] [place] [address] emergency to the patient. After being given an opportunity to ask questions about and discuss this type of visit, the patient verbally consented to proceeding with the telephone/video visit. The patient understands that this service replaces an office visit and they may be billed and/or responsible for any applicable copayments. Patrick Blount MD I have explained the option of participating in a telephone or video visit during the [facility]-[address] [place] [address] emergency to the patient. After being given an opportunity to ask questions about and discuss this type of visit, the patient verbally consented to proceeding with the telephone/video visit. The patient understands that this service replaces an office visit and they may be billed and/or responsible for any applicable copayments. @SIGENC2@ @WI@ Assessment & Plan (07/03/2022 10:14 AM CDT): Sumatriptan as needed Assessment & Plan (07/02/2021 9:26 AM CDT): Per Dr. Blount Assessment & Plan (08/05/2019 10:45 AM CDT): The patient is a 48-year-old female with migraine headaches. At this point she has had a significant reduction in her migraines after having received Botox. She is now down from 6 or 7 headache days per week to 2 headache days per week. The plan is to repeat the injections in early September. At that time I will move the injections on the frontalis superiorly in order to reduce any changes in her ability to raise her eyebrows or open her eyes widely. She has also proceeding with her application for reduced cost or free Aimovig 140 mg syringes. We will continue to assist her in that endeavor as the combination of Botox and Aimovig will likely further reduce her headache frequency significantly. I was with the patient for over 30 minutes [id number] and spent >50% of the visit reviewing pertinent test results with the patient, counseling them on medication management options and lifestyle changes that could benefit symptoms, answering their questions, and discussing follow-up planning This was a telemedicine visit with Ms. Judge which took place via an interactive audio and video telecommunications system. During the visit, I was located at the office and the patient was located at home. The session started at 10:08 a.m. and ended at 10:40 a.m.. The patient has been informed that the visit may not be secure and acknowledged the information. I have explained the option of participating in a telephone or video visit during the COVID-19 public [facility] emergency to the patient. After being given an opportunity to ask questions about and discuss this type of visit, the patient verbally consented to proceeding with the telephone / video visit. The patient understands that this service replaces an office visit and they may be billed and/or responsible for any applicable copayments. Assessment & Plan (06/14/2019 12:04 PM STITCH BURNISHER): Botox injection #1 Assessment & Plan (04/19/2019 10:07 AM STITCH BURNISHER): At this point the patient is experiencing about 4 headache days per week. We're going to try to get her on Aimovig 140 mg monthly. Failing this, we will try to get approval for Botox injections. I've asked her to contact me after she finds out whether not she is going to get patient assistance for Aimovig. At this point I'm going to continue her on Emgality samples until we obtain approval for 1 or the other. With regard to her chronic pain we spent quite a bit of time discussing intrathecal pain pump. I gave her the name of a [facility] physician who actually implants though so that she can go have a consultation regarding that possibility. I will see her back in 2 months. I was with the patient for over 30 minutes and spent >50% of the visit reviewing pertinent test results with the patient, counseling them on medication management options and lifestyle changes that could benefit symptoms, answering their questions, and discussing follow-up planning Assessment & Plan (03/08/2019 1:24 PM STITCH BURNISHER): -she takes imitrex mixed with anaprox and promethazine and takes as needed and gets migraines 1-2 times per week Assessment & Plan (11/12/2018 1:54 PM CDT): The patient is a 47-year-old female with frequent migraine headaches well controlled on her current medication. At this point were continue the patient on Emgality samples until we find out whether not she is approved for the Aimovig assistance program. I filled out paperwork for her today. We also spent some time discussing her failed back syndrome treatment and possible interventions. At this point I plan on seeing her back in a few months, but will certainly remain available for any thing that comes up in the interim. Thank result in care of your patient. I was with the patient for over 30 minutes and spent >50% of the visit reviewing pertinent test results with the patient, counseling them on medication management options and lifestyle changes that could benefit symptoms, answering their questions, and discussing follow-up planning Assessment & Plan (09/10/2018 2:06 PM CDT): The patient is a 47-year-old female with severe migraine headaches. The patient's headaches have significantly improved on Emgality, but she cannot afford the medication and is not eligible for the patient assistance program. Thus, I am going to switch her to Aimovig in the hope that she will be eligible for the assistance program through [employer]. I have given her 2 months of medication today to get her through until we find out about her eligibility. I will see her back at the end of that time. She is to contact me during the interim with any concerns or questions. I was with the patient for over 30 minutes and spent >50% of the visit reviewing pertinent test results with the patient, counseling them on medication management options and lifestyle changes that could benefit symptoms, answering their questions, and discussing follow-up planning Assessment & Plan (07/21/2018 1:25 PM CDT): The patient is a 47-year-old female with migraine with aura. Because of the frequency of her migrainous headaches, she will need to be on a preventive medication. She had done well on Topamax in the past but she has a strong history of kidney stones. Thus, I would try an alternative. Because of the large number of medications she is on, I would like to try her on Emgality. This should not interact with her other pain medication or anticonvulsants. This should also not be affected by any renal disease that she experiences as a result of her kidney stones. I went over the injection protocol with her as well as the side effect profile. I demonstrated the injection for her. I gave her her 1st 2 doses today is a sample along with a co-pay assistance card. I will see her back in 6 weeks to go over the efficacy. I have encouraged her to contact me in the interim with any concerns or questions. Assessment & Plan (12/29/2017 1:11 PM CDT): Continue medications for migraines. You are getting too many of these and the intensity is increasing. Cannot take topamax because of history of kidney stones. Get neurology consult for evaluation of migraines. Assessment & Plan (12/23/2016 1:41 PM CDT): -continue imitrex or treximet or relpax as needed Gastroesophageal reflux disease with esophagitis 11/06/2015 Overview (09/26/2020): REFLUX ESOPHAGITIS -she had GERD in past and treated well with rabeprazole. 04/2019 EGD normal except some retained food in the stomach. Assessment & Plan (07/12/2024 1:48 PM CDT): On rabeprazole and add famotidine at bedtime 20 mg to see if it helps. Assessment & Plan (06/23/2023 2:31 PM CDT): Stable on rabeprazole Assessment & Plan (07/03/2022 10:23 AM CDT): Stable on rabeprazole Assessment & Plan (07/02/2021 9:27 AM CDT): On rabeprazole twice daily Assessment & Plan (09/26/2020 12:05 PM CDT): Stay on the rabeprazole and can use tums as needed. Can also use phenergan as needed for associated nausea and keep head of bed elevated. Assessment & Plan (03/13/2020 1:52 PM STITCH BURNISHER): On rabeprazole and stay on this Assessment & Plan (03/08/2019 1:43 PM STITCH BURNISHER): Stay on rabeprazole and get EGD per GI. Assessment & Plan (12/29/2017 1:25 PM CDT): Controlled on aciphex and may try a less strong medication called famotidine 20 mg twice per day to see if this controls syptoms. Assessment & Plan (12/23/2016 1:38 PM CDT): -restart the rabeprazole for 3 months and if symptoms recur then need EGD Hyperlipidemia 11/06/2015 Overview (09/26/2020): HYPERLIPIDEMIA NEC/NOS -tries to eat low fat, TG improved a lot on red yeast rice Assessment & Plan (06/23/2023 2:31 PM CDT): Stay on red yeast rice to help with TG. Healthy diet as tolerated Assessment & Plan (07/03/2022 5:24 PM CDT): Stay on red yeast rice to help with TG. Healthy diet as tolerated Assessment & Plan (07/02/2021 9:18 AM CDT): Stay on red yeast rice to help with TG and the LDL is still high - try to work on low fat diet to help this also Assessment & Plan (09/26/2020 12:08 PM CDT): Stay on red yeast rice to help with TG and the LDL is still high - try to work on low fat diet to help this also Assessment & Plan (03/13/2020 1:29 PM STITCH BURNISHER): Recheck and consider additional med Assessment & Plan (12/30/2017 7:32 PM CDT): -dietary control Medical examinations/reports status 11/06/2015 Overview (07/18/2016): Medicare annual wellness visit, subsequent Vitamin D deficiency 11/06/2015 Overview (12/29/2017): VITAMIN D DEFICIENCY NOS -she's on vitamin D 2,000 IU per day Assessment & Plan (07/12/2024 1:49 PM CDT): Stay on vitamin D 2000 international units per day Assessment & Plan (07/03/2022 10:18 AM CDT): Stay on vitamin D 2000 international units per day Assessment & Plan (07/02/2021 9:18 AM CDT): Stay on vitamin D 2000 international units per day Assessment & Plan (09/26/2020 12:05 PM CDT): Stay on vitamin D 2000 international units per day Assessment & Plan (03/13/2020 1:52 PM STITCH BURNISHER): Stay on vitamin D 2000 international units per day Assessment & Plan (03/08/2019 1:44 PM STITCH BURNISHER): Stay on vitamin D 2,000 international units per day Assessment & Plan (12/29/2017 1:22 PM CDT): Stay on vitamin D 2,000 IU per day Assessment & Plan (12/23/2016 1:38 PM CDT): -continue vit D 6,000 IU per day Calculus of kidney 11/06/2015 Overview (12/23/2016): Kidney stones -she passed a stone in 11/28 and was able to take meds and stay home Assessment & Plan (12/29/2017 1:12 PM CDT): Stay on urocit-K Assessment & Plan (12/23/2016 1:40 PM CDT): -pain meds as needed Narcolepsy 02/12/2014 Overview (03/08/2019): Narcolepsy and circadian rhythm disorder -she takes nuvigil as needed for driving Assessment & Plan (07/12/2024 1:49 PM CDT): Stay on nuvigil as needed on days that needs to be more alert Assessment & Plan (12/30/2023 3:27 PM CDT): Stay on nuvigil as needed on days that needs to be more alert Assessment & Plan (07/03/2022 5:26 PM CDT): On nuvigil Assessment & Plan (07/02/2021 9:26 AM CDT): Stable on nuvigil Assessment & Plan (03/08/2019 1:25 PM STITCH BURNISHER): Stay on nuvigil as needed Assessment & Plan (12/29/2017 1:09 PM CDT): Stay on nuvigil Assessment & Plan (12/23/2016 1:41 PM CDT): -nuvigil as needed Central sleep apnea 08/28/2013 Overview (03/13/2020): She sees Praneeth Bahena about this and Dr. Carmen is prescribing the BIPAP. She has headaches related to her central sleep apnea. Assessment & Plan (03/13/2020 1:41 PM STITCH BURNISHER): Continue to see Praneeth Bahena, [employer] with Dr. Carmen for the BIPAP Assessment & Plan (12/29/2017 1:08 PM CDT): Continue to see Dr. Carmen to order and prescribe and follow this. 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 She's working with pain management and is doing some marijuana now to control pain and reduce her oxycodone use. 04/2019 xrays: Multilevel spondylosis with spondylolistheses and reversal of the normal cervical lordosis. Progressive and seeing Dr. Little in neurosurgery. -she's on ms-contin 90 mg po bid and oxycodone/apap as needed and lyrica and flexeril.. Had surgery in 2009. Dr. Perez pain management and is seeing her every 2 months. She has chronic severe pain that she's complaining of. Assessment & Plan (12/30/2023 3:49 PM CDT): Follow with Dr. Perez and Dr. Little in neurosurgery. Likely need surgical repair. Assessment & Plan (07/03/2022 5:25 PM CDT): Follow with Dr. Perez and Dr. Little in neurosurgery. Likely need surgical repair. Assessment & Plan (07/02/2021 4:44 PM CDT): Follow with Dr. Perez Assessment & Plan (07/13/2020 1:22 PM CDT): She is status post lumbar decompression in 2009 and multiple steroid injections without improvement. Follows with Dr. Perez in Pain Management --Continue home medications: MSER 60 mg BID, Lyrica 200 mg TID, PRN Flexeril, PRN methocarbamol, scheduled APAP, PRN oxycodone Assessment & Plan (07/12/2020 10:15 PM CDT): She is status post lumbar decompression in 2009 and multiple steroid injections without improvement. Follows with Dr. Perez in Pain Management --Continue home medications: MSER 60 mg BID, Lyrica 200 mg TID, PRN Flexeril, PRN methocarbamol, PRN APAP, PRN oxycodone Assessment & Plan (03/14/2020 7:51 PM STITCH BURNISHER): Follow with Dr. Perez for pain control. She's on many pain medication but still has chronic severe pain. Xrays in 04/2019 of lumbar spine stable compared with prior xrays. Assessment & Plan (03/08/2019 1:42 PM STITCH BURNISHER): Follow-up with Dr. Perez. Assessment & Plan (12/29/2017 1:13 PM CDT): Continue methadone and oxycodone/apap as needed Assessment & Plan (12/23/2016 1:42 PM CDT): -continue pain meds per pain management Fibromyalgia 10/04/2010 Overview (09/26/2020): -she takes lyrica twice per day and flexeril as needed and helps. She takes oxycodone as needed Assessment & Plan (07/03/2022 10:24 AM CDT): Stay on lyrica and flexeril as needed and on chronic narcotics per pain management Assessment & Plan (07/02/2021 9:27 AM CDT): Stay on lyrica and flexeril as needed Assessment & Plan (03/08/2019 1:24 PM STITCH BURNISHER): Stay on lyrica and flexeril as needed Assessment & Plan (12/29/2017 1:12 PM CDT): Stay on lyrica and flexeril as needed Assessment & Plan (12/23/2016 1:44 PM CDT): -continue lyrica and flexeril as needed Anaclitic depression 10/04/2010 Lumbar radiculopathy 10/04/2010 Peripheral nerve disease 10/04/2010 Other spondylosis, lumbar region 10/04/2010 Postlaminectomy syndrome of lumbar region 2010 Low back pain 10/04/2010 Obstructive sleep apnea syndrome 02/26/2010 Sleep apnea in adult Overview (07/02/2021): Wears BIPAP at night; central CPAP. Seeing Dr. Cloud for central sleep apnea (was seeing Dr. Bahena). Assessment & Plan (07/02/2021 9:21 AM CDT): We are going to put her on zonisamide for migraine prevention. In this is a weak carbonic anhydrase inhibitor which may stimulate respiration due to a mild acidosis. She is to continue to use her current BiPAP. Assessment & Plan (12/05/2020 8:28 AM CDT): The patient is a 48-year-old female with reported history of central sleep apnea. We are going to put her on zonisamide for migraine prevention. In this is a weak carbonic anhydrase inhibitor which may stimulate respiration due to a mild acidosis. She is to continue to use her current BiPAP. Resolved Problems Problem Noted Date Diagnosed Date Resolved Date Spondylosis of lumbar region without myelopathy or radiculopathy 10/02/2021 03/10/2023 Overview (07/03/2022): Now she's taking 90 mg of morphine per day and hydrocodone 4-6 per day. Assessment & Plan (07/03/2022 10:08 AM CDT): Follow-up with pain management and Dr. Little for consideration of spine surgery MD Gladys Sy Distinguished Professor of Orthopedic Surgery Professor Of Neurological Surgery Co-director of strategic alliances/Adult Spinal Deformity Service S/P insertion of spinal cord stimulator 07/12/2020 03/10/2023 Assessment & Plan (07/13/2020 1:20 PM CDT): Performed on 07/12 for spinal stenosis and post-laminectomy syndrome. The procedure was well tolerated and without complications --PRN APAP and oxycodone for pain control --Did well overnight; seen by pain service and ok for discharge; f/u appointment given. --Reviewed post-procedure activity restrictions with patient: no lifting heavy items Assessment & Plan (07/12/2020 10:17 PM CDT): Performed on 07/12 for spinal stenosis and post-laminectomy syndrome. 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) 02/26/2010 12/30/2023 Immunizations Immunization Administration Dates Next Due COVID-19 mRNA (MMIS) 0.3 m L (30 mcg) vaccine (12 years and up) 10/13/2024,06/25/2024,03/24/2023 HPV9 12/11/2022,06/21/2022,05/19/2022 Hep A / Hep B 10/14/2021,05/08/2021,03/13/2021 Hep A, Pediatric 10/14/2021 Hep A, Unspecified 03/12/2021 Hep B Vaccine 10/14/2021 Hep B, Unspecified 03/12/2021 Influenza, Quadrivalent, Fernanda l Culture-based MDCK, Preservative Free, Antibiotic Free, Intramuscular 12/13/2021,12/06/2018 Influenza, Quadrivalent, Spl it, Preservative Free, Intramuscular 12/11/2022,01/16/2021,12/25/2019,12/23 Influenza, Split 02/25/2011 Influenza, Trivalent, Cell Culture-based MDCK, Preservative Free, Antibiotic Free, Intramuscular 12/24/2023,12/13/2021 Influenza, Trivalent, IM (MDV) 6,12/13/2015,01/10/2015,01/25 Influenza, Unspecified 01/16/2021,12/06/2018,08/2017 Moderna SARS-CoV-2 Monovalen t Vaccination (12+ YRS) 07/17/2021,07/16/2021 Moderna Sars-cov-2 Monovalen t Vaccination (6 Mos-5 Yrs) 12/19/2021 Pfizer SARS-CoV-2 Monovalent Vaccination (12+ Yrs) PURPLE 01/16/2021,07/17/2020,06/26/2020 Pfizer Sars-Cov-2 Bivalent V accination (12+ YRS) 11/20/2022,05/15/2022 Pneumococcal Conjugate PCV 13 01/10/2015 Pneumococcal Conjugate Pcv21 10/13/2024 Pneumococcal Polysaccharide PPV23 03/13/2020 Sars-cov-2 Covid-19 Mrna, Bi valent, Original/henriqueron Ba.1 12/24/2023,07/28/2023,03/24/2023 Tdap 03/13/2021,12/25/2019,11/01/2014 ZOSTER Recombinant 01/24/2021,11/23/2020 Social History Tobacco Use Types Packs/Day Years Used Date Smoking Tobacco: Some Days Cigarettes 0.3 12 Started: 12/13/2010; Last attempted to quit: 12/13/2022 Smokeless Tobacco: Never Tobacco Cessation:Ready to Q uit: Not Asked; Counseling Given: Not Answered Comments:Less than 5 cigarettes a month Passive Exposure Comments:5-6 cigarettes a month Alcohol Use Standard Drinks/Week Comments No 0 (1 standard drink = 0.6 oz pur e alcohol) [facility] Utilities Answer Date Recorded In the past 12 months has th e electric, gas, oil, or water company [...] declined 02/26/2023 How often do you attend sabianist or oriental orthodox serv ices? Patient declined 02/26/2023 Do you belong to any clubs o r organizations such as sabianist groups, unions, fraternal or athletic groups, or [...] money to buy more. Never true 03/30/20 24 Within the past 12 months, t he [...] place to sleep or slept in a alf (including now)? No 02/26/2023 PHQ-9 Answer Date [...] on file Legal Sex Female 1:45 AM STITCH BURNISHER Gender Identity Female 11/17/2020 1:49 PM CDT Sexual Orientation Straight 03/07/2019 4: 08 AM STITCH BURNISHER Last Filed Vital Signs Vital Sign Reading Time Taken Comments Blood Pressure 113/85 09/21/2024 1:37 PM CDT Pulse 90 09/21/2024 1:37 PM CDT Temperature 36.5 C (97.7 F) 09/21/2024 12:34 PM CDT Respiratory Rate 14 09/21/2024 1:37 PM CDT Oxygen Saturation 96% 09/21/2024 1:37 PM CDT Inhaled Oxygen Concentration - - Weight 81.6 kg (180 lb) 09/22/2024 1:01 PM CDT Height 156.2 cm (5' 1.5) 09/22/2024 1:01 PM CDT Body Mass Index 33.46 09/22/2024 1:01 PM CDT Plan of Treatment Not on file Goals Goal Patient Goal Type Associated Problems [...] programs, or options for improving home safety. Medical Devices Implanted Type Area [employer] Cook Device Identifier Shelf Expiration Date Model / Serial / Lot [employer] Neuro- Sc-2316-50e Precision Infinion 50cm 1x16 Splitter Trial Lead Kit - [id number] - [id number] Implanted:Qty: 1 on 05/15/2020 at [facility] Lead [employer]- 03/26/2022 SC-2316- 50E / [id number] / [employer]- Sc-2316-50e Precision Infinion 50cm 1x16 Splitter Trial Lead Kit - [id number] - [id number] Implanted:Qty: 1 on 05/15/2020 at [facility] Lead [employer]- 03/26/2022 SC-2316- 50E / [id number] / Lead 74cm Avista Mri Safe - [id number] - [id number] Implanted:Qty: 1 on 07/12/2020 by Maylin Perez MD at [facility] Lead N/A: Spine Thoracic [employer] Mariana 11/24/2021 SC-2408- 74 / [id number] / [id number] Lead 74cm [employer] Mri Safe - [id number] - [id number] Implanted:Qty: 1 on 07/12/2020 by Maylin Perez MD at [facility] Lead N/A: Spine Thoracic [employer] Mariana 11/28/2021 SC-2408- 74 / [id number] / [id number] [employer] Sc-1200 Precison Montage Kit Generator Neurostimulator Sterile Disposable Latex Free - [id number] - [id number] Implanted:Qty: 1 on 07/12/2020 by Maylin Perez MD at [facility] Other - see comments N/A: Spine Thoracic [employer] Mariana 01/19/2022 SC-1200 / [id number] / [id number] Description:generator [employer] Sc-4319 Clik X Mri Downs Lead - S0 - [id number] Implanted:Qty: 1 on 07/12/2020 by Maylin Perez MD at [facility] Other - see comments N/A: Spine Thoracic [employer] Mariana 05/06/2022 SC-4319 / 0 / [id number] Pins Left: Ankle [employer] Neuro- [id number] Epimed Precision 4in 15d Curve Needle Nerve Stimulator Sterile Latex Free - [id number] Implanted:Qty: 1 on 05/15/2020 at [facility] [employer]- [id number] / / [employer]- [id number] Epimed Precision 4in 15d Curve Needle Nerve Stimulator Sterile Latex Free - [id number] Implanted:Qty: 1 on 05/15/2020 at [facility] [employer]- [id number] / / [employer] Mariana Sc-4116 Precision Spectra 213cm 1x16 Splitter Extension Cable - [id number] Implanted:Qty: 1 on 05/15/2020 at [facility] [employer] SC-4116 / / [employer] Sc-4116 Precision Spectra 213cm 1x16 Splitter Extension Cable - [id number] Implanted:Qty: 1 on 05/15/2020 at [facility] Cardiovascular [employer] [facility] SC-4116 / / Procedures Procedure Name Priority Date/Time Associated Diagnosis Comments DEXA AXIAL SKELETON BONE DENSITY 1 OR MORE SITES Schedule Routine, Read Routine (OP Routine) 09/22/2024 1:33 PM CDT Encounter for breast cancer screening using non-mammogram modality Vitamin D deficiency Other specified disorders of bone density and structure, multiple sites SCREENING MAMMOGRAM BILATERAL W SHARDA Schedule Routine, Read Routine (OP Routine) 09/22/2024 1:11 PM CDT Encounter for breast cancer screening using non-mammogram modality Encounter for screening mammogram for malignant neoplasm of breast PAIN MGMT IMAGING SI JOINT BILATERAL ARTHROGRPHY Schedule Routine, Read Routine (OP Routine) 09/21/2024 1:34 PM CDT Sacroiliitis PAP ONLY Routine 08/31/2024 4:24 PM CDT HPV MRNA E6/E7, POST- HYST, VAGINAL W/REFL Routine 08/31/2024 4:24 PM CDT TEST IN QUESTION - CYTOLOGY Routine 08/31/2024 4:24 AM CDT COLONOSCOPY 02/25/2023 5:56 PM STITCH BURNISHER HEPATITIS C ANTIBODY Routine 02/02/2020 1:00 PM CDT Routine screening for STI (sexually transmitted infection) from Last 3 Months or Most Recently Relevant to Health Maintenance Results * Dexa Axial Skeleton Bone Density 1 or 2 Site (09/22/2024 1:33 PM CDT) Anatomical Region Laterality Modality Body N/A Other 09/22/2024 3:37 PM CDT Narrative 09/22/2024 3:38 PM CDT EXAM DESCRIPTION: DEXA AXIAL SKELETON BONE DENSITY 1 OR MORE SITES REASON FOR STUDY: 53 y/o year old F with given history of: Postmenopausal status. History of taking vitamin-D and hormone replacement therapy. [employer] Cook/Model: [employer] SL (S/N [id number]) Facility LSC value of 0.022 for the AP spine, 0.027 for the femur, and 0.023 for the forearm. CLINICAL INFORMATION: Current height: 61.3 inches Maximum height: 64 inches Weight: 185 pounds Risk factors: None COMPARISON: 12/25/2021 FINDINGS: Left forearm Radius 33% BMD is 0.813 g/cm2 T-score is 2.0 This is a 3.7% increase in comparison to prior exam which is statistically significant. LEFT HIP: Total BMD is 0.895 g/cm2 T-score is -0.4 This is a 9.9% decrease in comparison to prior exam which is statistically significant. Femoral neck BMD is 0.818 g/cm2 T-score is -0.3 RIGHT HIP: Total BMD is 0.930 g/cm2 T-score is -0.1 This is a 7.2% decrease in comparison to prior exam which is statistically significant. Femoral neck BMD is 0.787 g/cm2 T-score is -0.6 FRAX: FRAX not reported due to T-scores of hip, femoral neck and/or spine being at or above -1.0 (Normal). IMPRESSION: 1. Normal bone mass. REFERENCE: Bone mineral density: T-Score: Normal (T-score above or = -1.0) Low bone mass (T-score between -1.0 and -2.5) replaces the previously used term osteopenia Osteoporosis (T-score = or below -2.5) Z-Score: Within the expected range for age (Z-score above -2.0) Below the expected range for age (Z-score is -2.0 or below) Please see below follow up recommendations. Medical evaluation for secondary causes of low bone mineral density may be appropriate. FRAX is a World Health Organization validated fracture risk assessment tool that calculates a person's 10 year probability of a major osteoporosis related fracture and hip fracture. According to the National Osteoporosis Foundation guidelines, postmenopausal women and men age 50 or older with low bone mass and a 10 year probability of a major osteoporosis related fracture = or greater than 20% or a 10 year probability of a hip fracture = or greater than 3% should be considered for pharmacological treatment for the prevention of osteoporosis. For further information, including treatment recommendations, please refer to the 2019 ISCD Official Positions (http://www.iscd.org) and the NOF's Clinician's Guide to Prevention and Treatment of Osteoporosis (http://www.nof.org/professionals/clinical-guidelines) THIS IS AN ELECTRONICALLY VERIFIED FINAL REPORT 09/22/2024 3:38 PM - Electronically signed by Netta Alamo M.D. TW: Report ID: [id number] Reading Location: [id number] Procedure Note Netta Alamo MD - 09/22/2024 EXAM DESCRIPTION: DEXA AXIAL SKELETON BONE DENSITY 1 OR MORE SITES REASON FOR STUDY: 53 y/o year old F with given history of:Postmenopausal status. History of taking vitamin-D and hormone replacement therapy. [employer] Cook/Model: [employer] Discovery SL (S/N [id number]) Facility LSC value of 0.022 for the AP spine, 0.027 for the femur, and0.023 for the forearm. CLINICAL INFORMATION: Current height: 61.3 inches Maximum height: 64 inches Weight: 185 pounds Risk factors: None COMPARISON: 12/25/2021 FINDINGS: Left forearm Radius 33% BMD is 0.813 g/cm2 T-score is 2.0 This is a 3.7% increase in comparison to prior exam which is statistically significant. LEFT HIP: Total BMD is 0.895 g/cm2 T-score is -0.4 This is a 9.9% decrease in comparison to prior exam which is statistically significant. Femoral neck BMD is 0.818 g/cm2 T-score is -0.3 RIGHT HIP: Total BMD is 0.930 g/cm2 T-score is -0.1 This is a 7.2% decrease in comparison to prior exam which is statistically significant. Femoral neck BMD is 0.787 g/cm2 T-score is -0.6 FRAX: FRAX not reported due to T-scores of hip, femoral neck and/or spine beingat or above -1.0 (Normal). IMPRESSION: 1. Normal bone mass. REFERENCE: Bone mineral density: T-Score: Normal (T-score above or = -1.0) Low bone mass (T-score between -1.0 and -2.5) replaces thepreviously used term osteopenia Osteoporosis (T-score = or below -2.5) Z-Score: Within the expected range for age (Z-score above -2.0) Below the expected range for age (Z-score is -2.0 or below) Please see below follow up recommendations. Medical evaluation forsecondary causes of low bone mineral density may be appropriate. FRAX is a World Health Organization validated fracture risk assessmenttool that calculates a person's 10 year probability of a major osteoporosisrelated fracture and hip fracture. According to the National OsteoporosisFoundation guidelines, postmenopausal women and men age 50 or older with low bonemass and a 10 year probability of a major osteoporosis related fracture = or greater than 20% or a 10 year probability of a hip fracture = or greaterthan 3% should be considered for pharmacological treatment for the preventionof osteoporosis. For further information, including treatment recommendations, please referto the 2019 ISCD Official Positions (http://www.iscd.org) and the NOF's Clinician's Guide to Prevention and Treatment of Osteoporosis (http://www.nof.org/professionals/clinical-guidelines) THIS IS AN ELECTRONICALLY VERIFIED FINAL REPORT 09/22/2024 3:38 PM - Electronically signed by Netta Alamo M.D. TW: TW Report ID: [id number] Reading Location: [id number] Marine Mayers MD IMG DXA PROCEDURES Final Re sult * SCREENING MAMMOGRAM BILATERAL W SHARDA (09/22/2024 1:11 PM CDT) Anatomical Region Laterality Modality Breast Bilateral Mammography Impressions 09/22/2024 2:15 PM CDT Bilateral No evidence of malignancy in either breast. OVERALL BI-RADS FINAL ASSESSMENT: 1 - Negative RECOMMENDATION: Recommend bilateral annual screening mammography. Narrative 09/22/2024 2:15 PM CDT EXAMINATION: SCREENING MAMMOGRAM BILATERAL W SHARDA: 09/22/2024 COMPARISON: Relevant prior studies available at the time of interpretation were reviewed. TECHNIQUE: Mammography was performed with 2D and digital breast tomosynthesis (DBT) images. CAD was utilized. BREAST PARENCHYMAL COMPOSITION: There are scattered areas of fibroglandular density. FINDINGS: Bilateral There is no suspicious mass, calcification, or architectural distortion in either breast. Marine Mayers MD [facility] MAMMO PROCEDURES Final Result * Imaging SI Joint Injection Bilateral ([id number]) (09/21/2024 1:34 PM CDT) Narrative [facility]_PACS[facility] - 09/21/2024 1:34 PM CDT The images from this study are not interpreted by Radiology. Please refer to the physician's procedure / OR operative note. Maylin Perez MD [facility] PAIN MGMT PROCEDURES F inal Result [facility]PACS[facility] * (ABNORMAL) Pap only (08/31/2024 4:24 PM CDT) CLINICAL INFORMATION: Gardenia Veronica Comment:Hysterectomy LMP Gardenia Veronica Comment:HYST Previous Pap Gardenia Veronica Comment:NONE GIVEN Prev. Bx Gardenia Veronica Comment:NONE GIVEN SOURCE: Gardenia Veronica Comment:Vagina Pap, specimen adequacy Gardenia Veronica Comment:SATISFACTORY FOR EDGAR LUATION Pap, general categorization (A) Gardenia Veronica Comment:Cytology Results: Ep ithelial Cell Abnormality HPV interp (A) Gardenia Veronica Comment: Atypical Squamous Cells of Undetermined Significance (ASC-US) COMMENTS Gardenia Veronica Comment: This Pap test has been evaluated with computer assisted technology. Suggest clinical correlation and follow-up as clinically appropriate Director Strategy Que [facility] [place] Veronica Comment: PCM, CT(ASCP) CT Screening Location: [facility] TRIN[place] Choi [id number] Pathologist Gardenia Veronica Comment: Pawan Robertson M.D., Board Certified in Anatomic Pathology and Cytopathology. (electronic signature) Pathologist Release Date/Time: 09/13/2024 12:18PM Comment [facility]ia Veronica Comment: EXPLANATORY NOTE: The Pap is a screening test for cervical cancer. It is not a diagnostic test and is subject to false negative and false positive results. It is most reliable when a satisfactory sample, regularly obtained, is submitted with relevant clinical findings and history, and when the Pap result is evaluated along with historic and current clinical information. 08/31/2024 4:24 PM CDT 09/03/2024 4:40 PM CDT us Cassidy Aparicio NP LAB CYTOLOGY ORDERABLES Final Re sult [address] [address] [address] [place] [place] [id number] * HPV mRNA E6/E7, POST- HYST, VAGINAL W/REFL (08/31/2024 4:24 PM CDT) HPV mRNA E6/E7, Vaginal Not Detected [facility] Comment: REFERENCE RANGE: NOT DETECTED For women with a hysterectomy and previous history of cervical cancer or, with SAUMYA 2 or higher within the last 20 years, screening with cytology every 3 years for 20 years after the initial post treatment surveillance period is reasonable. The role of HPV testing has not been clarified in this population. Methodology: Oxidized Finish Plater-Mediated Amplification This assay detects E6/E7 viral messenger RNA (mRNA) from 14 high-risk HPV types (16,18,31,33,35,39,45,51, 52,56,58,59,66,68). The analytical performance characteristics of this assay have been determined by [facility] [place], [place]. The modifications have not been cleared or approved by the FDA. This assay has been validated pursuant to the CLIA regulations and is used for clinical purposes. For additional information please refer to http://education.[employer].Torqeedo/faq/EQR657h1 (This link is being provided for informational/ educational purposes only.) 08/31/2024 4:24 PM CDT 09/03/2024 4:40 PM CDT us Cassidy Aparicio NP LAB BLOOD ORDERABLES Final Resul t [facility] [address] [address] [place] * TEST IN [facility] - CYTOLOGY (08/31/2024 4:24 AM CDT) Status FINAL [facility] Container type TP [facility] Question/Probl em RESOLVED HPV [facility] FINAL RESOLUTION REACCESSION [facility] 08/31/2024 4:24 AM CDT 09/01/2024 8:35 PM CDT Narrative [facility] - 09/03/2024 4:14 PM CDT FASTING: UNKNOWN us Cassidy Aparicio NP LAB BLOOD ORDERABLES Final Resul t Performing Organization Address [facility] de Phone Number [facility] [address] [place] [address] * COLONOSCOPY (02/25/2023 5:56 PM STITCH BURNISHER) Anatomical Region Laterality Modality Other Narrative Procedure Note Nola Marc MD - 02/25/2023 5:56 PM CST [facility] GI ENDOSCOPY Patient Name: Judson Orn Procedure Date: 02/25/2023 5:56 PM Date of : 1970 Admit Type: Outpatient Age: 52 Gender: Female Attending MD: Nola Marc M.D. Room: [facility] ENDOSCOPY ROOM 05 Note Status: Finalized Procedure: Colonoscopy Indications: High risk colon cancer surveillance: Personalhistory of colonic polyps Referring MD: Providers: Nola Marc M.D. Medicines: See the Anesthesia note for documentation of the administered medications Complications: No immediate complications. Estimated Blood Loss: Estimated blood loss was minimal. Procedure: The benefits, risks and alternatives of theprocedure and sedation were discussed and informed consentwas obtained. All questions were answered. Please referto the signed informed consent document in the medical record. The scope was passed under direct vision.The CF-RA506M colonoscope was introduced through theanus and advanced to the cecum, identified byappendiceal orifice and ileocecal valve. The colonoscopy was performed without difficulty. The patient tolerated the procedure well. The quality of the bowel preparation was adequate. Findings: The digital rectal exam findings include decreased sphincter tone. Pertinent negatives include No evidence of prolapsing hemorrhoids or rectal prolapse on perineal exam. An 8 mm polyp was found in the ascending colon. The polyp was removed with a hot biopsy forceps. Resection and retrieval were complete. Five polyps were found in the transverse colon. The polyps were 5 mmin size. These polyps were removed with a hot biopsy forceps. Resectionand retrieval were complete. A 5 mm polyp was found in the descending colon. The polyp was removed with a hot biopsy forceps. Resection and retrieval were complete. Congested mucosa was found in the descending colon. Biopsies weretaken with a cold forceps for histology. Two polyps were found in the sigmoid colon. The polyps were 5 mm in size. These polyps were removed with a hot biopsy forceps. Resectionand retrieval were complete. A localized area of erythematous mucosa was found in the rectum. Biopsies were taken with a cold forceps for histology. Internal hemorrhoids were found during retroflexion. Impression: - Decreased sphincter tone found on digital rectal exam. - One 8 mm polyp in the ascending colon, removedwith a hot biopsy forceps. Resected and retrieved. - Five 5 mm polyps in the transverse colon, removed with a hot biopsy forceps. Resected andretrieved. - One 5 mm polyp in the descending colon, removedwith a hot biopsy forceps. Resected and retrieved. - Congested mucosa in the descending colon.Biopsied. - Two 5 mm polyps in the sigmoid colon, removedwith a hot biopsy forceps. Resected and retrieved. - Erythematous mucosa in the rectum. Biopsied. Recommendation: - No aspirin, ibuprofen, naproxen, or other non-steroidal anti-inflammatory drugs for 5 days. - Repeat colonoscopy date to be determined after pending pathology results are reviewed for surveillance. Nola Marc M.D. Nola Marc M.D. 02/25/2023 6:49:09 PM . Number of Addenda: 0 Note Initiated On: 02/25/2023 5:56 PM Recognized by the [employer] for promoting quality in endoscopy us Nola Marc MD ENDOSCOPY PROCEDURES Final Resul t * Hepatitis C antibody (02/02/2020 1:00 PM CDT) Hep C Ab Nonreactive Nonreactive [facility] ([facility]) Comment: Interpretive Data Nonreactive: Antibodies to HCV not detected. Does NOT exclude the possibility of recent exposure to HCV. Equivocal: Equivocal for HCV antibodies. Supplemental molecular testing will be automatically performed to determine infection status in accordance with current CDC screening recommendations. Reactive: Positive for HCV antibodies. This may represent current or past HCV infection. Supplemental molecular testing will be automatically performed to determine current infection status in accordance with current CDC screening recommendations. Interpretive data was last revised on 2019. Testing performed by: [facility], [address] [place] [address]., [id number] Blood specimen (specimen) 02/02/2020 1:00 PM CDT 02/02/2020 7:05 PM CDT Cassidy Aparicio NP LAB MICROBIOLOGY - GENERAL ORDER CURT Final Result [facility] ([place]) 1 [facility] [place] [address] from Last 3 Months or Most Recently Relevant to Health Maintenance Insurance [facility] Member Subscriber Plan / Payer (Ef fective 2016-Present) Name:Judson Judge Calin Relation to Subscriber:Self Name:Judson Judge Payer ID:[id number] (NAIC) Type:MEDICARE RISK OTHER Address: [facility] [address] [facility] [place] [facility] Advance Directives For more information, please contact: [phone] Documents on File Type Date Recorded Patient Accounting Administrator Expl anation ADVANCE DIRECTIVE 07/07/2020 12:44 PM ADVANCE DIRECTIVE 12/22/2019 1:49 PM ADVANCE DIRECTIVE 12/10/2019 6:50 AM * LIMITED - No CPR (Latest Code Status on File) Date Activated Date Inactivated Comments 02/25/2023 1:08 PM 02/26/2023 11:04 PM Question Answer Comments Provide aggressive medical m anagement before a full cardiopulmonary arrest occurs. Use antibiotics, IV Fluids, and medical treatment unless specifically selected below: No intubationNo cardioversion Discussed with the following attending physician: No CPR * Full Code Date Activated Date Inactivated Comments 02/25/2023 10:46 AM 02/25/2023 1:08 PM * Full Code Date Activated Date Inactivated Comments 07/12/2020 7:20 PM 07/13/2020 7:04 PM * Full Code Date Activated Date Inactivated Comments 07/07/2020 4:40 PM 07/08/2020 6:43 PM * Full Code Date Activated Date Inactivated Comments 12/10/2019 12:32 PM 12/10/2019 8:55 PM Care Teams Chief I Dispatcher Relationship Specialty Start Date End Date Marine Mayers MD PCP - General 07/12/16
--- OUTSIDE RECORDS SUMMARY | 2024-11-15 18:55 | XMS_ITS | Encounter Summary ---
Author Organization [facility] Healthcare Address [address] [place] [address] Care Team Providers Care Ice Cream Vault Worker Name Role Phone Marine Mayers MD Primary Care Provider Encounter Details Date Type Department Care Team (Late st Contact Info) Description 09/13/2024 Results Follow-Up [facility] [address] [facility] [address] [place] [id number] Cassidy Aparicio, FINISHER FINE DIAMOND DIES [address] [facility] [address] [address] Pap only Social History Tobacco Use Types Packs/Day Years Used Date Smoking Tobacco: Every Day Cigarettes 0.3 12 Started: 12/13/2010; Last attempted to quit: 12/13/2022 Smokeless Tobacco: Never Comments:Less than 5 cigaret so a month Passive Exposure Comments:5-6 cigarettes a month Alcohol Use Standard Drinks/Week Comments No 0 (1 standard drink = 0.6 oz pur e alcohol) [facility] Utilities Answer Date Recorded In the past 12 months has [employer] electric, gas, oil, or water company threatened [...] declined 02/26/2023 How often do you attend nondenominational or methodist serv ices? Patient declined 02/26/2023 Do you belong to any clubs o r organizations such as nondenominational groups, unions, fraternal or athletic groups, or [...] place to sleep or slept in a fdc (including now)? No 02/26/2023 PHQ-9 Answer Date [...] on file Legal Sex Female 1:45 AM DATA PROCESSING SUPERVISOR Gender Identity Female 11/17/2020 1:49 PM CDT Sexual Orientation Straight 03/07/2019 4: 08 AM DATA PROCESSING SUPERVISOR documented as of this encounter Functional Status * Audit-C Score Answer Date of Assessment Author 0 09/21/2024 12:37 PM CDT Aleja Kathleen RN * Question Answer Date of Assessment Author Q1: How often do you have a drink containing alcohol? Never 09/21/2024 12:37 PM CDT Aleja Kathleen RN Q2: How many drinks containing alcohol do you have on a typical day when you are drinking? Patient does not drink 09/21/2024 12:37 PM CDT Aleja Kathleen RN Q3: How often do you have six or more drinks on one occasion? Never 09/21/2024 12:37 PM CDT Aleja Kathleen RN documented as of this encounter Plan of Treatment Not on file documented as of this encounter Goals Goal Patient Goal Type Associated Problems Recent Progress Patient-Stated? Author [facility] Chronic Pain Care Plan Chronic Care Management [...] stairs Contact your local community or senior westerlo for information on exercise, fall prevention programs, or options for improving home safety. documented as of this encounter Visit Diagnoses Not on filedocumented in this encounter Care Teams Ice Cream Vault Worker Relationship Specialty Start Date End Date Marine Mayers MD PCP - General 07/12/16 documented as of this encounter
--- OUTSIDE RECORDS SUMMARY | 2024-11-15 18:55 | XMS_ITS | Encounter Summary ---
Author Organization [facility] Healthcare Address [address] [place] [address] Care Team Providers Care Quill Worker Name Role Phone Marine Mayers MD Primary Care Provider Encounter Details Date Type Department Care Team (Late st Contact Info) Description 09/30/2022 Orders Only [facility] at the [place] [facility] [address] [facility] [address] [place] [address] Maylin Perez MD [address] [facility] [address] [facility] [address] [place], [place] [id number] Social History Tobacco Use Types Packs/Day Years Used Date Smoking Tobacco: Some Days Cigarettes 0.1 12 Started: 1994; Last attempted to quit: 2006 Smokeless Tobacco: Never Comments:[address] [facility] Passive Exposure Comments:5-6 cigarettes a month Alcohol [...] on file Legal Sex Female 1:45 AM CORRECTIONS CASEWORKER Gender Identity Female 11/17/2020 1:49 PM CDT Sexual Orientation Straight 03/07/2019 4: 08 AM CORRECTIONS CASEWORKER documented as of this encounter Plan of [...] (OMNIPAQUE) 300 mg i odine/mL injection solution 30 mL 1 09/30/2022 lidocaine PF (XYLOCAINE) 10 mg/mL (1 %) preservative free injection 300 mg 1 09/30/2022 ROPivacaine (NAROPIN) 2 mg/m L (0.2 %) preservative free injection 20 mg 1 09/30/2022 triamcinolone (KENALOG) 40 m g/mL injection 80 mg 1 09/30/2022 documented in this encounter Care Teams Quill Worker Relationship Specialty Start Date End Date Marine Mayers MD PCP - General 07/12/16 documented as of this encounter
--- OUTSIDE RECORDS SUMMARY | 2024-11-15 18:55 | XMS_ITS | Encounter Summary ---
Author Organization [facility] Healthcare Address [address] [place] [address] Care Team Providers Care Fisher Mussel Name Role Phone Marine Mayers MD Primary Care Provider [phone] Reason for Visit * Reason Onset Date Comments PMC Preprocedure 07/03/2023 Encounter Details Date Type Department Care Team (Late st Contact Info) Description 07/03/2023 Telephone [facility] at the [place] [facility] [address] [facility] Advanced Medicine [address] [place] [address] Maylin Perze MD [address] [facility] [address] [facility] [phone] [place] [address] [facility] Preprocedure Social History Tobacco Use Types Packs/Day Years Used Date Smoking Tobacco: Some Days Cigarettes 0.3 12 Started: 12/13/2010; Last attempted to quit: 12/13/2022 Smokeless Tobacco: Never Comments:Less than 5 cigaret so a month Passive Exposure Comments:5-6 cigarettes a month Alcohol Use Standard Drinks/Week Comments No 0 (1 standard drink = 0.6 oz pur e alcohol) [facility] Utilities Answer Date Recorded In the [...] declined 02/26/2023 How often do you attend hinduism or gnosticism serv ices? Patient declined 02/26/2023 Do you belong to any clubs o r organizations such as hinduism groups, unions, fraternal or athletic groups, or school groups? Patient declined 02/26/2023 How often do you attend meet ings of the clubs or organizations you belong to? Patient declined 02/26/2023 Are you , , di vorced, , never , or living with a partner? Never 02/26/2023 AUDIT-C Answer Date Recorded Q1: How often do you have a drink containing alcohol? Never 07/07/2023 Q2: How many drinks containi ng alcohol do you have on a typical day when you are drinking? Patient does not drink Q3: How often do you have si x or more drinks on one occasion? Never 07/07/2023 Overall Financial Resource Strain (CARDIA) Answe r Date Recorded How hard is it for you to pa y for the very basics like food, housing, medical care, and heating? Not hard at all 02/26/2023 PHQ-2 Answer Date Recorded PHQ-2 Total Score 17 06/23/2023 Hunger Vital Sign Answer Date Recorded Within the past 12 months, y ou worried that your food would run out before you got the money to buy more. Never true 02/27/20 23 Within the past 12 months, t he food you bought just didn't last and you didn't have money to get more. Never true 02/26/2023 PRAPARE - Transportation Answer Date Re corded [...] place to sleep or slept in a longterm (including now)? No 02/26/2023 PHQ-9 Answer Date Recorded PHQ-9 Total Score 17 06/23/2023 Personal Safety Answer Date Recorded Have you ever been in or are you currently in a harmful physical or emotional relationship or is someone making you feel afraid or unsafe? Yes 02/25/2023 Comments No Sex and Gender Information Value Date Recorded Sex Assigned at Not on file Legal Sex Female 1:45 AM COLLAR POINTER Gender Identity Female 11/17/2020 1:49 PM CDT Sexual Orientation Straight 03/07/2019 4: 08 AM COLLAR POINTER documented as of this encounter Plan of [...] on filedocumented in this encounter Care Teams Fisher Mussel Relationship Specialty Start Date End Date Marine Mayers MD PCP - General 07/12/16 documented as of this encounter
--- OUTSIDE RECORDS SUMMARY | 2024-11-15 18:55 | XMS_ITS | Encounter Summary ---
Author Organization [facility] Healthcare Address [address] [place] [address] Care Team Providers Care Title Clerk Name Role Phone Marine Mayers MD Primary Care Provider Encounter Details Date Type Department Care Team (Late st Contact Info) Description 10/03/2021 Telephone [facility] at the [place] [facility] [address] [facility] Advanced Medicine [address] [place] [address] Maylin Perez MD [address] [facility] [phone] [place], [place] [id number] Social History Tobacco Use Types Packs/Day Years Used Date Smoking Tobacco: Some Days Cigarettes Started: 1994; Last attempted to quit: 2006 Smokeless Tobacco: Never Comments:couple times a hillary h Alcohol Use Standard Drinks/Week Comments No 0 (1 standard drink = 0.6 oz pur e alcohol) AUDIT-C Answer Date Recorded Q1: How often do you have a drink containing alc ohol? Never 10/02/2021 Average Number of Drinks Not on file 022 Q3: How often do you have si x or more drinks on one occasion? Never 10/02/2021 PHQ-2 Answer Date Recorded PHQ-2 Total Score (If total score is 3 or more points, staff should administer the PHQ-9) 2 06/25/2021 Comments No Sex and Gender Information Value Date Recorded Sex Assigned at Not on file Legal Sex Female 1:45 AM PATROL INSPECTOR Gender Identity Female 11/17/2020 1:49 PM CDT Sexual Orientation Straight 03/07/2019 4: 08 AM PATROL INSPECTOR documented as of this encounter Plan of [...] stairs Contact your local community or senior norman for information on exercise, fall prevention programs, or options for improving home safety. documented as of this encounter Visit Diagnoses Not on filedocumented in this encounter Care Teams Title Clerk Relationship Specialty Start Date End Date Marine Mayers MD PCP - General 07/12/16 documented as of this encounter
--- OUTSIDE RECORDS SUMMARY | 2024-11-15 18:55 | XMS_ITS | Encounter Summary ---
Author Organization [facility] Healthcare Address [address] [place] [address] Care Team Providers Care Clinical Implementation Specialist Name Role Phone Marine Mayers MD Primary Care Provider Encounter Details Date Type Department Care Team (Late st Contact Info) Description 01/10/2022 Telephone [facility] at the [place] [facility] [address] [facility] Advanced Medicine [address] [place] [address] Maylin Perez MD [address] [facility] [phone] [place], [place] [id number] Social History Tobacco Use Types Packs/Day Years Used Date Smoking Tobacco: Some Days Cigarettes Started: 1994; Last attempted to quit: 2006 Smokeless Tobacco: Never Comments:couple times a hillary h Alcohol Use Standard Drinks/Week Comments No 0 (1 standard drink = 0.6 oz pur e alcohol) AUDIT-C Answer Date Recorded Q1: How often do you have a drink containing alcohol? Never 01/07/2022 Q2: How many drinks containi ng alcohol do you have on a typical day when you are drinking? Patient does not drink Q3: How often do you have si x or more drinks on one occasion? Never 01/07/2022 PHQ-2 Answer Date Recorded PHQ-2 Total Score (If total score is 3 or more points, staff should administer the PHQ-9) 2 06/25/2021 Comments No Sex and Gender Information Value Date Recorded Sex Assigned at Not on file Legal Sex Female 1:45 AM FLIGHT ENGINEER INSTRUCTOR Gender Identity Female 11/17/2020 1:49 PM CDT Sexual Orientation Straight 03/07/2019 4: 08 AM FLIGHT ENGINEER INSTRUCTOR documented as of this encounter Plan of [...] stairs Contact your local community or senior floral park for information on exercise, fall prevention programs, or options for improving home safety. documented as of this encounter Visit Diagnoses Not on filedocumented in this encounter Care Teams Clinical Implementation Specialist Relationship Specialty Start Date End Date Marine Mayers MD PCP - General 07/12/16 documented as of this encounter
--- OUTSIDE RECORDS SUMMARY | 2024-11-15 18:55 | XMS_ITS | Encounter Summary ---
Author Organization [facility] Healthcare Address [address] [place] [address] Care Team Providers Care Longitudinal Float Operator Name Role Phone Marine Mayers MD Primary Care Provider Encounter Details Date Type Department Care Team (Late st Contact Info) Description 11/10/2018 Telephone [facility] Pain Center at [address] [place] [address] Maylin Perez MD [phone] [place] [address] Social History Tobacco Use Types Packs/Day Years Used Date Smoking Tobacco: Former Cigarettes Q uit: 2006 Smokeless Tobacco: Never Alcohol Use Standard Drinks/Week Comments No 0 (1 standard drink = 0.6 oz pur e alcohol) Comments No Sex and Gender Information Value Date Recorded Sex Assigned at Not on file Legal Sex Female 1:45 AM GROMMET MACHINE OPERATOR Gender Identity Female 11/17/2020 1:49 PM CDT Sexual Orientation Straight 03/07/2019 4: 08 AM GROMMET MACHINE OPERATOR documented as of this encounter Plan of [...] needed Reduce the likelihood of falling Lifestyle Marylou Ingram Note: Below are four things you can [...] on stairs Contact your local community or [facility] for information on exercise, fall prevention programs, or options for improving home safety. documented as of this encounter Visit Diagnoses Not on filedocumented in this encounter Care Teams Longitudinal Float Operator Relationship Specialty Start Date End Date Marine Mayers MD PCP - General 07/12/16 documented as of this encounter
--- OUTSIDE RECORDS SUMMARY | 2024-11-15 18:55 | XMS_ITS | Encounter Summary ---
Author Organization [facility] Healthcare Address [address] [place] [address] Care Team Providers Care Equity Structurer Name Role Phone Marine Mayers MD Primary Care Provider Encounter Details Date Type Department Care Team (Late st Contact Info) Description 06/01/2019 Telephone [facility] at the [place] [facility] [address] [facility] Advanced Medicine [address] [place] [address] Maylin Perez MD [address] [facility] [phone] [place], [place] [phone] Social History Tobacco Use Types Packs/Day Years Used Date Smoking Tobacco: Former Cigarettes Q uit: 2006 Smokeless Tobacco: Never Comments:has one occasionall y Alcohol Use Standard Drinks/Week Comments No 0 (1 standard drink = 0.6 oz pur e alcohol) PHQ-2 Answer Date Recorded PHQ-2 Score 1 03/08/2019 Comments No Sex and Gender Information Value Date Recorded Sex Assigned at Not on file Legal Sex Female 1:45 AM GASOLINE DRAGLINE OPERATOR Gender Identity Female 11/17/2020 1:49 PM CDT Sexual Orientation Straight 03/07/2019 4: 08 AM GASOLINE DRAGLINE OPERATOR documented as of this encounter Plan [...] stairs Contact your local community or senior brimson for information on exercise, fall prevention programs, or options for improving home safety. documented as of this encounter Visit Diagnoses Not on filedocumented in this encounter Care Teams Equity Structurer Relationship Specialty Start Date End Date Marine Mayers MD PCP - General 07/12/16 documented as of this encounter
--- OUTSIDE RECORDS SUMMARY | 2024-11-15 18:55 | XMS_ITS | Encounter Summary ---
Author Organization [facility] Healthcare Address [address] [place] [address] Care Team Providers Care Diesel Fleet Mechanic Name Role Phone Marine Mayers MD Primary Care Provider Reason for Visit * Reason Onset Date Comments Change/resend script 2018 Encounter Details Date Type Department Care Team (Late st Contact Info) Description 2018 Telephone [facility] at [address] [place] [address] Maylin Perez MD [phone] [place] [address] Change/resend script Social History Tobacco Use Types Packs/Day Years Used Date Smoking Tobacco: Former Cigarettes Q uit: 2007 Smokeless Tobacco: Never Alcohol Use Standard Drinks/Week Comments No 0 (1 standard drink = 0.6 oz pur e alcohol) PHQ-2 Answer Date Recorded PHQ-2 Score 0 12/02/2018 Comments No Sex and Gender Information Value Date Recorded Sex Assigned at Not on file Legal Sex Female 1:45 AM DRUM LOADER AND UNLOADER Gender Identity Female 11/17/2020 1:49 PM CDT Sexual Orientation Straight 03/07/2019 4: 08 AM DRUM LOADER AND UNLOADER documented as of this encounter Miscellaneous Notes * Telephone Encounter - Fanny Willard RN - 12/07/2018 10:11 AM CDT Correct. Thank you * Telephone Encounter - Maylin Perez MD - 12/05/2018 9:27 AM CDT Just to verify- nothing more that I need to do, correct? Thank you. * Telephone Encounter - Fanny Willard RN - 2018 4:04 PM CDT Pharmacy called stating this pts MSER cap was not covered by the insurance but the tab was. Verbal auth given for MSER tab. Entered in epic documented in this encounter Plan of Treatment Not on [...] documented as of this encounter Visit Diagnoses Diagnosis Post laminectomy syndrome- Primary Postlaminectomy syndrome, unspecified region Other chronic pain documented in this encounter Discontinued Medications Medication Sig Discontinue Reason Start Date End Da te morphine ER (MONICA) 30 mg 24 hr capsuleIndications:Chroni c pain syndrome,Lumbar radiculopathy Take 1 capsule (30 mg total) by mouth daily Cost of medication 2018 2018 documented as of this encounter Care Teams Diesel Fleet Mechanic Relationship Specialty Start Date End Date Marine Mayers MD PCP - General 07/12/16 documented as of this encounter
--- OUTSIDE RECORDS SUMMARY | 2024-11-15 18:55 | XMS_ITS | Encounter Summary ---
Author Organization [facility] Healthcare Address [address] [place] [address] Care Team Providers Care Sand Polisher Name Role Phone Marine Mayers MD Primary Care Provider Reason for Visit * Reason Onset Date Comments PMC Preprocedure 09/17/2024 Encounter Details Date Type Department Care Team (Late st Contact Info) Description 09/17/2024 Telephone [facility] [address] [facility] [address] [place] [address] Maylin Perez MD [address] [facility] [address] [address] [facility] [phone] [place] [address] [facility] Preprocedure Social History Tobacco Use Types Packs/Day Years Used Date Smoking Tobacco: Every Day Cigarettes 0.3 12 Started: 12/13/2010; Last attempted to quit: 12/13/2022 Smokeless Tobacco: Never Comments:Less than 5 cigaret so a month Passive Exposure Comments:5-6 cigarettes a month Alcohol Use Standard Drinks/Week Comments No 0 (1 standard drink = 0.6 oz pur e alcohol) [facility] Utilities Answer Date Recorded In the past [...] declined 02/26/2023 How often do you attend zoroastrianism or anabaptism serv ices? Patient declined 02/26/2023 Do you belong to any clubs o r organizations such as zoroastrianism groups, unions, fraternal or athletic groups, or [...] place to sleep or slept in a snf (including now)? 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
--- OUTSIDE RECORDS SUMMARY | 2024-11-15 18:55 | XMS_ITS | Clinical Summary ---
Author Organization [facility] Address [address] [address] Care Team Providers Care Medical Office Specialist Name Role Phone Marine Mayers MD Primary Care Provider [phone] Allergies Active Allergy Reactions Criticality Noted Date [...] of her exact reaction Lamotrigine Itching Medium Miston Other (See comments) Low Incontinence Methylphenidate Other [...] and brakes And basket Provider plus in [place] 1 each 1 05/22/19 22 Active aspirin [...] for up to 1 dose 9 tablet 04/20/19 25 Active zonisamide (ZONEGRAN) 100 mg capsule Take 1 capsule every day in the evening. 90 capsule 04/20/19 25 Active spironolactone (ALDACTONE) 25 mg tablet Take 1 tablet (25 mg total) by mouth 2 (two) times a day 60 tablet 05/03/19 25 Active cyclobenzaprine (FLEXERIL) 10 mg tablet Take 1 tablet (10 mg total) by mouth 3 (three) times a day as needed for muscle spasms for muscle spasms 90 tablet 06/04/19 25 Active armodafiniL (NUVIGIL) 250 mg tablet TAKE 1 TABLET BY MOUTH ONCE DAILY NEEDED 30 tablet 08/17/19 25 Active methocarbamoL (ROBAXIN) 500 mg tablet Take 1 tablet (500 mg total) by mouth 4 (four) times a day as needed for muscle spasms 120 tablet 08/31/19 25 Active hydrOXYzine (ATARAX) 25 mg tablet TAKE 2 TABLETS BY MOUTH 2 TIMES A DAY. 360 tablet 09/09/19 25 Active pregabalin (LYRICA) 200 mg [...] 04/26/2021 Assessment & Plan (04/26/2021 3:41 PM BONDING EQUIPMENT OPERATOR): HPV counseling given. Patient would like vaccine [...] 03/21/2020 Assessment & Plan (03/21/2020 5:25 PM BONDING EQUIPMENT OPERATOR): Excellent horizontal eye alignment with small over [...] messages Assessment & Plan (03/13/2020 1:27 PM BONDING EQUIPMENT OPERATOR): Assessment & Plan: I recommend that you [...] ablation Assessment & Plan (03/25/2023 10:10 AM BONDING EQUIPMENT OPERATOR): The patient apparently has been discussing using [...] 09/13/2019 Assessment & Plan (02/26/2022 10:18 AM BONDING EQUIPMENT OPERATOR): The patient is a 51-year-old female with [...] patient was located at home in the [facility]. The patient visit started at 10:00 a.m. and ended at 10:18 a.m.. The patient has been informed that the visit may not be secure and acknowledged the information. I have explained the option of participating in a telephone or video visit during the [facility] emergency to the patient. After being given [...] billed and/or responsible for any applicable copayments. @[email or web address]@ @ME@ Assessment & Plan (04/24/2021 2:13 PM BONDING EQUIPMENT OPERATOR): The patient is a 50-year-old female with [...] patient was located at home in the [facility]. The patient visit started at 1:47 p.m. and ended at 2:18 p.m.. The patient has been informed that the visit may not be secure and acknowledged the information. I have explained the option of participating in a telephone or video visit during the [facility] [place] [address] emergency to the patient. After being given [...] a telephone or video visit during the [facility] [place] [address] emergency to the patient. After being given an opportunity to ask questions about and discuss this type of visit, the patient verbally consented to proceeding with the telephone/video visit. The patient understands that this service replaces an office visit and they may be billed and/or responsible for any applicable copayments. @SIGENC2@ @WY@ Assessment & Plan (12/05/2020 8:30 AM CDT): [...] patient was located at home in the [facility]. The patient visit started at 7:55 a.m. and ended at 8:30 a.m.. The patient has been informed that the visit may not be secure and acknowledged the information. I have explained the option of participating in a telephone or video visit during the [facility] emergency to the patient. After being given [...] a telephone or video visit during the [facility] [place] [address] emergency to the patient. After being given an opportunity to ask questions about and discuss this type of visit, the patient verbally consented to proceeding with the telephone/video visit. The patient understands that this service replaces an office visit and they may be billed and/or responsible for any applicable copayments. @SIGENC2@ @WY@ Assessment & Plan (07/13/2020 1:22 PM CDT): --Continue PRN hydroxyzine and PRN sumatriptan Assessment & Plan (07/12/2020 10:16 PM CDT): --Continue PRN hydroxyzine and PRN sumatriptan Assessment & Plan (03/16/2020 3:27 PM BONDING EQUIPMENT OPERATOR): Repeated botox injection Assessment & Plan (09/13/2019 [...] 06/23/2019 Overview (01/23/2021): Surgery x 2 with Wilfredo Assessment & Plan (01/23/2021 9:15 AM CDT): [...] (06/03/2019): Added automatically from request for surgery [id number] Assessment & Plan (06/22/2019 9:07 AM CDT): Diet as tolerated. Okay to return to work with light duty. No heavy lifting greater than 20 lb for 4 weeks. No submerging incisions for 4 weeks. Please call for any further questions or concerns. Assessment & Plan (06/03/2019 9:54 AM BONDING EQUIPMENT OPERATOR): Given the findings on imaging and clinical [...] 04/26/2019 Assessment & Plan (04/26/2019 11:49 AM BONDING EQUIPMENT OPERATOR): Occurs intermittently and describes as sharp/burning. Pt says it has improved recently. Pt has had EGD and colonoscopy without explanation of pain. She does have fibromyalgia and back issues which makes this pain likely neuropathic. Pt is already taking lyrica and narcotics for fibro/chronic pain. Will order CT of abdomen with contrast to complete workup. Gastroparesis 04/26/2019 Assessment & Plan (04/26/2019 11:13 AM BONDING EQUIPMENT OPERATOR): Likely due to polypharmacy including chronic narcotic [...] 04/26/2019 Assessment & Plan (04/26/2019 12:01 PM BONDING EQUIPMENT OPERATOR): See gastroparesis for plan Hormone replacement therapy [...] HRT. Assessment & Plan (03/19/2022 6:08 PM BONDING EQUIPMENT OPERATOR): Risks vs benefits of HRT discussed such as increased risk of blood clots leading to possible heart attack, stroke, and increased risk of breast cancer; pt. verbalizes understanding and wishes to proceed with HRT. Assessment & Plan (04/26/2021 3:19 PM BONDING EQUIPMENT OPERATOR): Risks vs benefits of HRT discussed such as increased risk of blood clots leading to possible heart attack, stroke, and increased risk of breast cancer; pt. verbalizes understanding and wishes to proceed with HRT. Refills sent to pharmacy. Assessment & Plan (02/14/2019 11:58 AM BONDING EQUIPMENT OPERATOR): Continue estradiol as directed. Risks vs benefits of HRT discussed such as increased risk of blood clots leading to possible heart attack, stroke, and increased risk of breast cancer; pt. verbalizes understanding and wishes to proceed with HRT. Lower abdominal pain 02/10/2019 Overview (02/10/2019): Added automatically from request for surgery [id number] Assessment & Plan (02/10/2019 2:57 PM CDT): Pt says the pain feels like it is raw so it kind of saladña. She is weaning off of methadone and [...] encouraged her to follow up with a [employer] doctor as well. Dysphagia 02/10/2019 Overview (02/10/2019): Added automatically from request for surgery [id number] Assessment & Plan (04/26/2019 11:59 AM BONDING EQUIPMENT OPERATOR): Pt says no recent issues with swallowing. Will refer to ENT if this issue re- occurs. Assessment & Plan (02/10/2019 2:54 PM CDT): Patient has issues with choking on my own spit about 3-4 times a week. She says it has occurred more often recently. Will setup EGD. Drug-induced constipation 02/10/2019 Assessment & Plan (04/26/2019 11:59 AM BONDING EQUIPMENT OPERATOR): Pt says she is having BM almost everyday but is having 1-2 on Obion stool scale. Likely due to chronic narcotic [...] pain Assessment & Plan (03/17/2019 11:10 PM BONDING EQUIPMENT OPERATOR): BMI Follow-up includes: nutrition counseling and little [...] the exam were completed as outlined by [facility] Assessment & Plan (03/08/2019 1:45 PM BONDING EQUIPMENT OPERATOR): I have reviewed the Medicare Wellness Questionnaire/Health [...] needed Assessment & Plan (03/14/2020 7:52 PM BONDING EQUIPMENT OPERATOR): Stay on triam/hctz once per day Assessment & Plan (03/08/2019 1:33 PM BONDING EQUIPMENT OPERATOR): Continue the triamterene/hctz and continue low salt [...] months Assessment & Plan (04/20/2024 10:36 AM BONDING EQUIPMENT OPERATOR): The patient is a 53-year-old female with [...] at her friend's house in the state of [place]. The patient visit started at 8:45 a.m. [...] and/or responsible for any applicable copayments. @SIGENC2@ @WY@ Assessment & Plan (06/23/2023 2:37 PM CDT): The patient is doing very well on a combination of zonisamide and Emgality for her migraines and follow up with Dr. Blount Assessment & Plan (03/25/2023 10:09 AM BONDING EQUIPMENT OPERATOR): The patient is doing very well on [...] at her friend's house in the state [facility]. The patient visit started at 9:57 a.m. [...] billed and/or responsible for any applicable copayments. @JAYJAY2@ @WY@ Assessment & Plan (07/03/2022 10:14 AM CDT): [...] with the patient for over 30 minutes [id number] and spent >50% of the visit reviewing [...] copayments. Assessment & Plan (06/14/2019 12:04 PM BONDING EQUIPMENT OPERATOR): Botox injection #1 Assessment & Plan (04/19/2019 10:07 AM BONDING EQUIPMENT OPERATOR): At this point the patient is experiencing [...] I gave her the name of a [facility] physician who actually implants though so that [...] planning Assessment & Plan (03/08/2019 1:24 PM BONDING EQUIPMENT OPERATOR): -she takes imitrex mixed with anaprox and [...] be eligible for the assistance program through [employer]. I have given her 2 months of [...] elevated. Assessment & Plan (03/13/2020 1:52 PM BONDING EQUIPMENT OPERATOR): On rabeprazole and stay on this Assessment & Plan (03/08/2019 1:43 PM BONDING EQUIPMENT OPERATOR): Stay on rabeprazole and get EGD per [...] also Assessment & Plan (03/13/2020 1:29 PM BONDING EQUIPMENT OPERATOR): Recheck and consider additional med Assessment & [...] day Assessment & Plan (03/13/2020 1:52 PM BONDING EQUIPMENT OPERATOR): Stay on vitamin D 2000 international units per day Assessment & Plan (03/08/2019 1:44 PM BONDING EQUIPMENT OPERATOR): Stay on vitamin D 2,000 international units [...] nuvigil Assessment & Plan (03/08/2019 1:25 PM BONDING EQUIPMENT OPERATOR): Stay on nuvigil as needed Assessment & Plan (12/29/2017 1:09 PM CDT): Stay on nuvigil Assessment & Plan (12/23/2016 1:41 PM CDT): -nuvigil as needed Central sleep apnea 08/28/2013 Overview (03/13/2020): She sees Praneeth Bahena about this and Dr. Carmen is prescribing the BIPAP. She has headaches related to her central sleep apnea. Assessment & Plan (03/13/2020 1:41 PM BONDING EQUIPMENT OPERATOR): Continue to see Praneeth Bahena NP with Dr. Carmen for the BIPAP Assessment [...] oxycodone Assessment & Plan (03/14/2020 7:51 PM BONDING EQUIPMENT OPERATOR): Follow with Dr. Perez for pain control. She's on many pain medication but still has chronic severe pain. Xrays in 04/2019 of lumbar spine stable compared with prior xrays. Assessment & Plan (03/08/2019 1:42 PM BONDING EQUIPMENT OPERATOR): Follow-up with Dr. Perez. 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 [address] [place] [address] [place] [address] Maylin Perez MD Sacroiliitis (Primary Dx); Sacroiliac dysfunction 10/27/2024 Telephone [facility] [address] [place] [address] Cassidy Aparicio NP Switch patch 09/22/2024 12:48 PM CDT - 09/22/2024 11:59 PM CDT Hospital Encounter [address] [address] Discharge Disposition: Discharge to home or self care 09/22/2024 12:30 PM CDT - 09/22/2024 11:59 PM CDT Hospital Encounter [address] [address] Encounter for breast cancer screening using non-mammogram modality; Vitamin D deficiency; Other specified disorders of bone density and structure, multiple sites Discharge Disposition: Discharge to home or self care 09/22/2024 Results Follow-Up [facility] Primary [facility] at [facility] [address] [facility] [address], [place] [phone] Marine Mayers MD Dexa Axial Skeleton Bone Density 1 or 2 Site, SCREENING MAMMOGRAM BILATERAL W SHARDA 09/21/2024 12:12 PM CDT - 09/21/2024 11:59 PM CDT Hospital Encounter [facility] [address] [facility] [address] [place] [address] Maylin Perez MD Chronic bilateral low back pain with bilateral sciatica; Sacroiliitis Discharge Disposition: Discharge to home or self care 09/17/2024 Telephone [facility] [facility] [address] [place] [address] Maylin Perez MD PMC Preprocedure 09/15/2024 Orders Only [facility] [address] [place] [address] Maylin Perez MD 09/13/2024 Results Follow-Up [facility] [address] [place] [address] [address] [place] [phone] Cassidy Aparicio NP Pap only 09/09/2024 Orders Only [facility] at the [place] [address] [facility] [address] [place] [address] Maylin Perez MD Sacroiliitis (Primary Dx) 09/03/2024 Telephone [facility] [address] [place] [address] [address] [place] [address] Cassidy Aparicio NP Vaginal Pap Smear 08/31/2024 3:00 PM CDT Office Visit [facility] [address] [place] [address] [address] [place] [phone] Cassidy Aparicio NP Well woman exam (Primary Dx); Routine gynecological examination; Hormone replacement therapy (HRT); Encounter for screening mammogram for breast cancer 08/18/2024 Telephone [facility] General Neurology [address] [facility] 6[address] [place] [address] Mina Owen MD Armodafinil PA Renewal from Last 3 Months Immunizations Immunization Administration Dates Next Due COVID-19 mRNA (Tripshare) 0.3 m L (30 mcg) vaccine (12 [...] Ba.1 12/24/2023,07/28/2023,03/24/2023 Tdap 03/13/2021,12/25/2019,11/01/2014 ZOSTER Recombinant 01/24/2021,11/23/2020 Surgical History Surgery Date Site/Laterality Comments LAMINECTOMY 03/01/2010 Bilateral Spinal stenosis: laminectomy Dr. Jeromy Puri BUNIONECTOMY 04/14/1994 - 04/13/1995 Right ORIF ANKLE FRACTURE 04/14/2004 - 04/13/2005 Left LAPAROSCOPIC SUPRACERVICAL HYSTERECTOMY 04/14/2004 - 04/13/2005 endometriosis BILATERAL SALPINGOOPHORECTOMY 03/19/2017 L/S BSO, right ovarian cystadenoma COLONOSCOPY 04/12/2019 multiple CHOLECYSTECTOMY 06/11/2019 PERONEAL NERVE DECOMPRESSION 07/12/2009 Right release of right peroneal nrve (right foot) CYSTOSCOPY 2014, 201503/26/16; 02/27/15 EPIDURAL STEROID INJECTION 12/30/2017 multiple LAPAROSCOPY multiplel for endometriosis UPPER GASTROINTESTINAL ENDOSCOPY EYE SURGERY EYE MUSCLE SURGERY 12/10/2019 Right RSRc 3.5mm, RLRc 5.0mm LT HYSTERECTOMY 04/14/2004 - 04/13/2005 APPENDECTOMY SPINE SURGERY LUMBAR ABDOMINAL SURGERY EYE MUSCLE SURGERY 07/07/2020 Left LSRc 2.5 WISDOM TOOTH EXTRACTION HERNIA REPAIR FRACTURE SURGERY 2002 Medical History Medical History Date Comments Spinal stenosis Hypercholesterolemia Acquired scoliosis Gastroesophageal reflux disease Narcolepsy Depression Depression: Meds , on disability; dxd PTSD also from work environment. Nephrolithiasis Diaphragm, eventration abnormal cxr Endometriosis Chronic pain disorder Sleep apnea wears c pap at n ight; central CPAP Fibromyalgia Migraine Osteoarthritis Fibromyalgia, primary PONV (postoperative nausea and vomiting) Improved with scopolamine patch Awareness under anesthesia Durin g MAC procedures Low back pain Anxiety Menstrual problem Allergic rhinitis Asthma Gastric reflux Colon polyps Neuropathy Rectal prolapse Ankylosing spondylitis Nausea without vomiting 04/26/2019 Seizures (HCC) Low back pain Osteoporosis Family History Medical History Relation Name Comments Alcohol abuse Brother 1 Humble [place] Clotting disorder Brother 1 Humble [place] Depression Brother 1 Humble [place] Hyperlipidemia Brother 1 Humble [place] Hypertension Brother 1 Hum[place] Obesity Brother 1 Humble [place] Depression Brother 2 [place] Arthritis Father JNE Cancer Father JNE Clotting disorder Father JNE Depression Father JNE Diabetes Father JNE Heart disease Father JNE Hyperlipidemia Father JNE Hyperlipidemi a; Hypertension Father JNE Hypertension; Memory loss Father JNE Obesity Father JNE Early Maternal Grandfather CS Hearing loss Maternal Grandfather CS Heart attack Maternal Grandfather CS Heart disease Maternal Grandfather CS Cardio vascular disease; Hyperlipidemia Maternal Grandfather CS Hypertension Maternal Grandfather CS Hyperte nsion; Alzheimer's disease Maternal Grandmother EKS Arthritis Maternal Grandmother EKS Hearing loss Maternal Grandmother EKS Hyperlipidemia Maternal Grandmother EKS Memory loss Maternal Grandmother EKS Miscarriages / Stillbirths Maternal Grandmother EKS Obesity Maternal Grandmother EKS Vision loss Maternal Grandmother EKS Arthritis Mother CJE Cancer Mother CJE Clotting disorder Mother CJE Depression Mother CJE Hearing loss Mother CJE Heart attack Mother CJE Myocardial infa rction; Heart disease Mother CJE Hyperlipidemia Mother CJE Hyperlipidemi a; Hypertension Mother CJE Memory loss Mother CJE Mental illness Mother CJE Other Mother CJE Menstrual probl ems; Vision loss Mother CJE Hyperlipidemia Other 1 High choleste rol; Hypertension Other 2 Hypertension; Cancer Paternal Grandfather HE Cancer -; Clotting disorder Paternal Grandmother ME Hypertension Paternal Grandmother ME Hyperte nsion; Miscarriages / Stillbirths Paternal Grandmother ME Stroke Paternal Grandmother ME stroke; Breast cancer Paternal Great-Grandmother Relation Name Status Comments Brother 1 Humble Marrero Brother 2 [place] Alive Father JNE Alive Maternal Grandfather CS Maternal Grandmother EKS Alive Mother CJE Other 1 Other 2 Paternal Grandfather HE Paternal Grandmother ME Paternal Great-Grandmother Social History Tobacco Use Types Packs/Day Years [...] drink = 0.6 oz pur e alcohol) [facility] Utilities Answer Date Recorded In the past [...] declined 02/26/2023 How often do you attend restorationism or caodaism serv ices? Patient declined 02/26/2023 Do you belong to any clubs o r organizations such as restorationism groups, unions, fraternal or athletic groups, or [...] place to sleep or slept in a chcf (including now)? No 02/26/2023 PHQ-9 Answer Date [...] on file Legal Sex Female 1:45 AM BONDING EQUIPMENT OPERATOR Gender Identity Female 11/17/2020 1:49 PM CDT Sexual Orientation Straight 03/07/2019 4: 08 AM BONDING EQUIPMENT OPERATOR Obstetrics History Para Term AB IAB SAB Ectopic Multiple Livin g Live Births 0 0 0 0 0 0 0 0 0 0 0 Last Filed Vital Signs Vital Sign Reading [...] 09/22/2024 1:01 PM CDT Plan of Treatment Health Maintenance Due Date Last Done Comments Influenza Vaccine (#1) 2024 , 12/11/2022, 12/13/2021, Additional history exists Depression Screening 08/31/2025 08/31/2024, 08/31/2024, 07/12/2024, Additional history exists Regular Well Visit/Exam 18-64 08/31/2025, 08/22/2023, 06/23/2023, Additional history exists Breast Cancer Screening-Mammogram 09/22/2025 09/22/2024, 09/26/2022, 09/19/2021, Additional history exists DTaP/Tdap/Td Vaccine (4 - Td or Tdap) 03/13/2031 03/13/2021, 12/25/2019, 11/01/2014 Colon Cancer Screening-Colonoscopy 02/25/2033 02/25/2023, 04/12/2019 Hepatitis C Screening Completed 02/02/2020, 018 Zoster Vaccine Completed 01/24/2021, 11/23/2020 Hepatitis B Screening Completed 10/14/2021 , 10/14/2021, 05/08/2021, Additional history exists Colon Cancer Screening-CT Colonography Discontinued 02/25/2023, 04/12/2019 Colon Cancer Screening-DNA Stool Discontinued 02/26/20 23, 04/12/2019 Colon Cancer Screening-FIT Discontinued 02/25/2023, Colon Cancer Screening-Sigmoidoscopy Discontinued 02/25/2023, 04/12/2019 Cervical Cancer Screening Discontinued 2024, 08/22/2023, 03/13/2021, Additional history exists Covid-19 Vaccine Completed 10/13/2024, , 12/24/2023, Additional history exists Pneumococcal vaccine <65 Completed 025, 03/13/2020, 01/10/2015 Goals Goal Patient Goal Type Associated Problems [...] stairs Contact your local community or [place] for information on exercise, fall prevention programs, or options for improving home safety. Medical Devices Implanted Type Area Income Tax Administrator Device Identifier Shelf Expiration Date Model / Serial / Lot [employer] Neuro- Sc-2316-50e Precision Infinion 50cm 1x16 Splitter Trial Lead Kit - [id number] - [id number] Implanted:Qty: 1 on 05/15/2020 at [facility] Lead [employer]- 03/26/2022 SC-2316- 50E / [id number] / [employer]- Sc-2316-50e Precision Infinion 50cm 1x16 Splitter Trial Lead Kit - [id number] - [id number] Implanted:Qty: 1 on 05/15/2020 at [facility] Lead [employer]- 03/26/2022 SC-2316- 50E / [id number] / Lead 74cm [employer] Mri Safe - [id number] - [id number] Implanted:Qty: 1 on 07/12/2020 by Maylin Perez MD at [facility] Lead N/A: Spine Thoracic [employer] [place] 11/24/2021 SC-2408- 74 / [id number] / [id number] Lead 74cm [employer] Mri Safe - [id number] - [id number] Implanted:Qty: 1 on 07/12/2020 by Maylin Perez MD at [facility] Lead N/A: Spine Thoracic [employer] [place] 11/28/2021 SC-2408- 74 / [id number] / [id number] [employer] Sc-1200 [facility] Generator Neurostimulator Sterile Disposable Latex Free - [id number] - [id number] Implanted:Qty: 1 on 07/12/2020 by Maylin Perez MD at [facility] Other - see comments N/A: Spine Thoracic [employer] [place] 01/19/2022 SC-1200 / [id number] / [id number] Description:generator [employer] Sc-4319 Clik X Mri [place] Lead - S0 - [id number] Implanted:Qty: 1 on 07/12/2020 by Maylin Perez MD at [facility] Other - see comments N/A: Spine Thoracic [email or web address] [place] 05/06/2022 SC-4319 / 0 / [id number] Pins Left: Ankle [employer] Neuro- [id number] Epimed Precision 4in 15d Curve Needle Nerve Stimulator Sterile Latex Free - [id number] Implanted:Qty: 1 on 05/15/2020 at [facility] [employer]- [id number] / / [employer] Neuro- [id number] Epimed Precision 4in 15d Curve Needle Nerve Stimulator Sterile Latex Free - [id number] Implanted:Qty: 1 on 05/15/2020 at [facility] [employer] Neuro- [id number] / / [employer] [place] Sc-4116 Precision Spectra 213cm 1x16 Splitter Extension Cable - [id number] Implanted:Qty: 1 on 05/15/2020 at [facility] [email or web address] [place] SC-4116 / / [employer] [place] Sc-4116 Precision Spectra 213cm 1x16 Splitter Extension Cable - [id number] Implanted:Qty: 1 on 05/15/2020 at [facility] [employer] SC-4116 / / Procedures Procedure Name Priority [...] 4:24 AM CDT COLONOSCOPY 02/25/2023 5:56 PM BONDING EQUIPMENT OPERATOR HEPATITIS C ANTIBODY Routine 02/02/2020 1:00 PM [...] of taking vitamin-D and hormone replacement therapy. Income Tax Administrator/Model: [employer] (S/N 75314) Facility LSC value of 0.022 for the [...] Netta Alamo M.D. TW: TW Report ID: [id number] Reading Location: [id number] Procedure Note Netta Alamo MD - 09/22/2024 EXAM DESCRIPTION: DEXA AXIAL SKELETON BONE DENSITY 1 OR MORE SITES REASON FOR STUDY: 53 y/o year old F with given history of:Postmenopausal status. History of taking vitamin-D and hormone replacement therapy. Income Tax Administrator/Model: [employer] (S/N 10346) Facility LSC value of 0.022 for the [...] Netta Alamo M.D. TW: TW Report ID: [id number] Reading Location: [id number] Marine Mayers MD [facility] [place]XA PROCEDURES Final Re sult * SCREENING [...] distortion in either breast. Marine Mayers MD G MAMMO PROCEDURES Final Result * Imaging SI Joint Injection Bilateral (99601) (09/21/2024 1:34 PM CDT) Narrative [facility] - 09/21/2024 1:34 PM CDT The images from this study are not interpreted by Radiology. Please refer to the physician's procedure / OR operative note. Maylin Perez MD G PAIN MGMT PROCEDURES F inal Result [facility] [...] clinical correlation and follow-up as clinically appropriate [facility] [place] Comment: PCM, CT(ASCP) CT Screening Location: [place] [facility] Administration [place] [address] Pathologist [place] Comment: Pawan Robertson M.D., [...] 4:24 PM CDT 09/03/2024 4:40 PM CDT Cassidy Aparicio [facility] LAB CYTOLOGY ORDERABLES Final Re sult [facility] [address] Administration [place] [id number] * HPV mRNA E6/E7, POST- HYST, VAGINAL W/REFL (08/31/2024 4:24 PM CDT) HPV mRNA E6/E7, Vaginal Not Detected [employer] Comment: REFERENCE RANGE: NOT DETECTED For women with a hysterectomy and previous history of cervical cancer or, with SAUMYA 2 or higher within the last 20 years, screening with cytology every 3 years for 20 years after the initial post treatment surveillance period is reasonable. The role of HPV testing has not been clarified in this population. Methodology: Advanced Manufacturing Consultant-Mediated Amplification This assay detects E6/E7 viral messenger RNA (mRNA) from 14 high-risk HPV types (16,18,31,33,35,39,45,51, 52,56,58,59,66,68). The analytical performance characteristics of this assay have been determined by [employer] [place], [place]. The modifications have not been cleared or approved by the FDA. This assay has been validated pursuant to the CLIA regulations and is used for clinical purposes. For additional information please refer to http://education.3point5.com/faq/ITI949t5 (This link is being provided for informational/ educational purposes only.) 08/31/2024 4:24 PM CDT 09/03/2024 4:40 PM CDT us Cassidy Aparicio NP LAB BLOOD ORDERABLES Final Resul t [place] [address] [facility] [place] [phone] * TEST IN QUESTION - CYTOLOGY (08/31/2024 4:24 AM CDT) Status FINAL [facility] Container type TP [facility] Question/Probl em RESOLVED HPV [facility] FINAL RESOLUTION REACCESSION [facility] 08/31/2024 4:24 AM CDT 09/01/2024 8:35 PM CDT Narrative [facility] - 09/03/2024 4:14 PM CDT FASTING: UNKNOWN us Cassidy M. Aparicio [employer] LAB BLOOD ORDERABLES Final Resul t [place] [facility] [address] [address] [place] [phone] * COLONOSCOPY (02/25/2023 5:56 PM BONDING EQUIPMENT OPERATOR) Anatomical Region Laterality Modality Other Narrative Procedure Note Nola Marc MD - 02/25/2023 5:56 PM CST [facility] GI ENDOSCOPY Patient Name: Judson Orn Procedure Date: 02/25/2023 5:56 PM Date of : 1970 Admit Type: Outpatient Age: 52 Gender: Female Attending MD: Nola Marc M.D. Room: [facility] ENDOSCOPY ROOM 05 Note Status: [...] The scope was passed under direct vision.The CF-[id number] colonoscope was introduced through theanus and advanced [...] On: 02/25/2023 5:56 PM Recognized by the [employer] for promoting quality in endoscopy Nola Marc MD ENDOSCOPY PROCEDURES Final Resul t * Hepatitis C antibody (02/02/2020 1:00 PM CDT) Hep C Ab Nonreactive Nonreactive [facility] Comment: Interpretive Data Nonreactive: Antibodies to HCV [...] last revised on 2019. Testing performed by: 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
== END 2024-11-15 19:23 | disposition home or self-care (01) ==
PROVIDERS: Emergency Provider Nurse Practitioner
DX: S81.811A Laceration without foreign body, right lower leg, initial encounter (principal); W22.8XXA Striking against or struck by other objects, initial encounter
CPT/HCPCS: 99212; G0463

== ENCOUNTER 2024-11-18 13:55 | Emergency (ER) | payer OTHER, SELFPAY ==
--- OUTSIDE RECORDS SUMMARY | 2024-11-18 13:58 | XMS_ITS | Encounter Summary ---
Author Organization [facility] Healthcare Address [address] [place] [address] Care Team Providers Care Sheep Clipper Name Role Phone Marine Mayers MD Primary Care Provider Encounter Details Date Type Department Care Team (Late st Contact Info) Description 09/30/2022 Orders Only [facility] [place] [facility] [address] 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
--- OUTSIDE RECORDS SUMMARY | 2024-11-18 13:58 | XMS_ITS | Encounter Summary ---
Author Organization [facility] Healthcare Address [address] [place] [address] Care Team Providers Care Hide Selector Name Role Phone Marine Mayers MD Primary Care Provider Encounter Details Date Type Department Care Team (Late st Contact Info) Description 09/30/2022 Orders Only [facility] [place] [facility] [address] 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
--- OUTSIDE RECORDS SUMMARY | 2024-11-18 13:59 | XMS_ITS | Clinical Summary ---
Author Organization [facility] Address [address] [address] Care Team Providers Care Lumber Tripper Name Role Phone Marine Mayers MD Primary Care Provider Allergies Active Allergy Reactions Criticality Noted Date [...] of her exact reaction Lamotrigine Itching Medium Ohlman Other (See comments) Low Incontinence Methylphenidate Other [...] and brakes And basket Provider plus in [place] 1 each 1 05/22/19 22 Active aspirin [...] 04/26/2021 Assessment & Plan (04/26/2021 3:41 PM AWNING ASSEMBLER): HPV counseling given. Patient would like vaccine [...] 03/21/2020 Assessment & Plan (03/21/2020 5:25 PM AWNING ASSEMBLER): Excellent horizontal eye alignment with small over [...] messages Assessment & Plan (03/13/2020 1:27 PM AWNING ASSEMBLER): Assessment & Plan: I recommend that you [...] ablation Assessment & Plan (03/25/2023 10:10 AM AWNING ASSEMBLER): The patient apparently has been discussing using [...] 09/13/2019 Assessment & Plan (02/26/2022 10:18 AM AWNING ASSEMBLER): The patient is a 51-year-old female with [...] patient was located at home in the [facility]. The patient visit started at 10:00 a.m. and ended at 10:18 a.m.. The patient has been informed that the visit may not be secure and acknowledged the information. I have explained the option of participating in a telephone or video visit during the [facility] emergency to the patient. After being given [...] @ME@ Assessment & Plan (04/24/2021 2:13 PM AWNING ASSEMBLER): The patient is a 50-year-old female with [...] patient was located at home in the [facility]. The patient visit started at 1:47 p.m. and ended at 2:18 p.m.. The patient has been informed that the visit may not be secure and acknowledged the information. I have explained the option of participating in a telephone or video visit during the [facility] [place] [address] emergency to the patient. After being given [...] a telephone or video visit during the [facility] [place] [address] emergency to the patient. After being given an opportunity to ask questions about and discuss this type of visit, the patient verbally consented to proceeding with the telephone/video visit. The patient understands that this service replaces an office visit and they may be billed and/or responsible for any applicable copayments. @SIGENC2@ @NJ@ Assessment & Plan (12/05/2020 8:30 AM CDT): [...] patient was located at home in the [facility]. The patient visit started at 7:55 a.m. and ended at 8:30 a.m.. The patient has been informed that the visit may not be secure and acknowledged the information. I have explained the option of participating in a telephone or video visit during the [facility]- [facility] emergency to the patient. After being given [...] a telephone or video visit during the [facility]-[address] [place] [address] emergency to the patient. After being given an opportunity to ask questions about and discuss this type of visit, the patient verbally consented to proceeding with the telephone/video visit. The patient understands that this service replaces an office visit and they may be billed and/or responsible for any applicable copayments. @SIGENC2@ @NJ@ Assessment & Plan (07/13/2020 1:22 PM CDT): --Continue PRN hydroxyzine and PRN sumatriptan Assessment & Plan (07/12/2020 10:16 PM CDT): --Continue PRN hydroxyzine and PRN sumatriptan Assessment & Plan (03/16/2020 3:27 PM AWNING ASSEMBLER): Repeated botox injection Assessment & Plan (09/13/2019 [...] (06/03/2019): Added automatically from request for surgery [id number] Assessment & Plan (06/22/2019 9:07 AM CDT): Diet as tolerated. Okay to return to work with light duty. No heavy lifting greater than 20 lb for 4 weeks. No submerging incisions for 4 weeks. Please call for any further questions or concerns. Assessment & Plan (06/03/2019 9:54 AM AWNING ASSEMBLER): Given the findings on imaging and clinical [...] 04/26/2019 Assessment & Plan (04/26/2019 11:49 AM AWNING ASSEMBLER): Occurs intermittently and describes as sharp/burning. Pt says it has improved recently. Pt has had EGD and colonoscopy without explanation of pain. She does have fibromyalgia and back issues which makes this pain likely neuropathic. Pt is already taking lyrica and narcotics for fibro/chronic pain. Will order CT of abdomen with contrast to complete workup. Gastroparesis 04/26/2019 Assessment & Plan (04/26/2019 11:13 AM AWNING ASSEMBLER): Likely due to polypharmacy including chronic narcotic [...] 04/26/2019 Assessment & Plan (04/26/2019 12:01 PM AWNING ASSEMBLER): See gastroparesis for plan Hormone replacement therapy [...] HRT. Assessment & Plan (03/19/2022 6:08 PM AWNING ASSEMBLER): Risks vs benefits of HRT discussed such as increased risk of blood clots leading to possible heart attack, stroke, and increased risk of breast cancer; pt. verbalizes understanding and wishes to proceed with HRT. Assessment & Plan (04/26/2021 3:19 PM AWNING ASSEMBLER): Risks vs benefits of HRT discussed such as increased risk of blood clots leading to possible heart attack, stroke, and increased risk of breast cancer; pt. verbalizes understanding and wishes to proceed with HRT. Refills sent to pharmacy. Assessment & Plan (02/14/2019 11:58 AM AWNING ASSEMBLER): Continue estradiol as directed. Risks vs benefits of HRT discussed such as increased risk of blood clots leading to possible heart attack, stroke, and increased risk of breast cancer; pt. verbalizes understanding and wishes to proceed with HRT. Lower abdominal pain 02/10/2019 Overview (02/10/2019): Added automatically from request for surgery [id number] Assessment & Plan (02/10/2019 2:57 PM CDT): [...] encouraged her to follow up with a Senior Writer doctor as well. Dysphagia 02/10/2019 Overview (02/10/2019): Added automatically from request for surgery [id number] Assessment & Plan (04/26/2019 11:59 AM AWNING ASSEMBLER): Pt says no recent issues with swallowing. Will refer to ENT if this issue re- occurs. Assessment & Plan (02/10/2019 2:54 PM CDT): Patient has issues with choking on my own spit about 3-4 times a week. She says it has occurred more often recently. Will setup EGD. Drug-induced constipation 02/10/2019 Assessment & Plan (04/26/2019 11:59 AM AWNING ASSEMBLER): Pt says she is having BM almost everyday but is having 1-2 on [place] stool scale. Likely due to chronic narcotic [...] pain Assessment & Plan (03/17/2019 11:10 PM AWNING ASSEMBLER): BMI Follow-up includes: nutrition counseling and little [...] the exam were completed as outlined by [facility] Assessment & Plan (03/08/2019 1:45 PM AWNING ASSEMBLER): I have reviewed the Medicare Wellness Questionnaire/Health [...] needed Assessment & Plan (03/14/2020 7:52 PM AWNING ASSEMBLER): Stay on triam/hctz once per day Assessment & Plan (03/08/2019 1:33 PM AWNING ASSEMBLER): Continue the triamterene/hctz and continue low salt [...] months Assessment & Plan (04/20/2024 10:36 AM AWNING ASSEMBLER): The patient is a 53-year-old female with [...] her friend's house in the state of [place]. The patient visit started at 8:45 a.m. [...] and/or responsible for any applicable copayments. @SIGENC2@ @NJ@ Assessment & Plan (06/23/2023 2:37 PM CDT): The patient is doing very well on a combination of zonisamide and Emgality for her migraines and follow up with Dr. Blount Assessment & Plan (03/25/2023 10:09 AM AWNING ASSEMBLER): The patient is doing very well on [...] at her friend's house in the state [facility]. The patient visit started at 9:57 a.m. [...] and/or responsible for any applicable copayments. @JAYJAY2@ @NJ@ Assessment & Plan (07/03/2022 10:14 AM CDT): [...] with the patient for over 30 minutes [id number] and spent >50% of the visit reviewing [...] copayments. Assessment & Plan (06/14/2019 12:04 PM AWNING ASSEMBLER): Botox injection #1 Assessment & Plan (04/19/2019 10:07 AM AWNING ASSEMBLER): At this point the patient is experiencing [...] I gave her the name of a [facility] physician who actually implants though so that [...] planning Assessment & Plan (03/08/2019 1:24 PM AWNING ASSEMBLER): -she takes imitrex mixed with anaprox and [...] be eligible for the assistance program through [employer]. I have given her 2 months of [...] elevated. Assessment & Plan (03/13/2020 1:52 PM AWNING ASSEMBLER): On rabeprazole and stay on this Assessment & Plan (03/08/2019 1:43 PM AWNING ASSEMBLER): Stay on rabeprazole and get EGD per [...] also Assessment & Plan (03/13/2020 1:29 PM AWNING ASSEMBLER): Recheck and consider additional med Assessment & [...] day Assessment & Plan (03/13/2020 1:52 PM AWNING ASSEMBLER): Stay on vitamin D 2000 international units per day Assessment & Plan (03/08/2019 1:44 PM AWNING ASSEMBLER): Stay on vitamin D 2,000 international units [...] nuvigil Assessment & Plan (03/08/2019 1:25 PM AWNING ASSEMBLER): Stay on nuvigil as needed Assessment & Plan (12/29/2017 1:09 PM CDT): Stay on nuvigil Assessment & Plan (12/23/2016 1:41 PM CDT): -nuvigil as needed Central sleep apnea 08/28/2013 Overview (03/13/2020): She sees Praneeth Bahena about this and Dr. Carmen is prescribing the BIPAP. She has headaches related to her central sleep apnea. Assessment & Plan (03/13/2020 1:41 PM AWNING ASSEMBLER): Continue to see Praneeth Bahena NP with [...] oxycodone Assessment & Plan (03/14/2020 7:51 PM AWNING ASSEMBLER): Follow with Dr. Perez for pain control. She's on many pain medication but still has chronic severe pain. Xrays in 04/2019 of lumbar spine stable compared with prior xrays. Assessment & Plan (03/08/2019 1:42 PM AWNING ASSEMBLER): Follow-up with Dr. Perez. Assessment & Plan [...] needed Assessment & Plan (03/08/2019 1:24 PM AWNING ASSEMBLER): Stay on lyrica and flexeril as needed [...] Surgery Professor Of Neurological Surgery Co-director of instruction/Adult Spinal Deformity Service S/P insertion of spinal [...] Department Care Team Description 11/03/[address] [facility] at the [facility] Medicine [address] [place] [address] [place] [address] Maylin Perez MD Sacroiliitis (Primary Dx); Sacroiliac dysfunction 10/27/2024 Telephone [facility] [address] [facility] [address] [place] [address] Cassidy Aparicio NP Switch patch 09/22/2024 12:48 PM CDT - 09/22/2024 11:59 PM CDT Hospital Encounter [address] [address] Discharge Disposition: Discharge to home or self care 09/22/2024 12:30 PM CDT - 09/22/2024 11:59 PM CDT Hospital Encounter [address] [address] Encounter for breast cancer screening using non-mammogram modality; Vitamin D deficiency; Other specified disorders of bone density and structure, multiple sites Discharge Disposition: Discharge to home or self care 09/22/2024 Results Follow-Up [facility] Primary Care at [facility] [address] [facility] [address] [phone] Marine Mayers MD Dexa Axial Skeleton Bone Density 1 or 2 Site, SCREENING MAMMOGRAM BILATERAL W SHARDA 09/21/2024 12:12 PM CDT - 09/21/2024 11:59 PM CDT Hospital Encounter [facility] [address] [facility] [address] [place] [address] Maylin Perez MD Chronic bilateral low back pain with bilateral sciatica; Sacroiliitis Discharge Disposition: Discharge to home or self care 09/17/[address] [facility] [address] [place] [address] Maylin Perez MD PMC Preprocedure 09/15/2024 Orders Only [facility] at the [facility] [address] [place] [address] Maylin Perez MD 09/13/2024 Results Follow-Up [facility] [address] [place] [address] [address] [place] [phone] Cassidy Aparicio NP Pap only 09/09/2024 Orders Only [facility] at the [place] [address] [facility] [address] [place] [address] Maylin Perez MD Sacroiliitis (Primary Dx) 09/03/2024 Telephone [facility] [address] [place] [address] [address] [place] [address] Cassidy Aparicio NP Vaginal Pap Smear 08/31/2024 3:00 PM CDT Office Visit [facility] [address] [place] [address] [address] [place] [address] Cassidy Aparicio NP Well woman exam (Primary Dx); Routine gynecological examination; Hormone replacement therapy (HRT); Encounter for screening mammogram for breast cancer 08/18/[address] [facility] [address] [facility] 6th [address] [place] [address] Mina Owen MD Armodafinil PA Renewal from Last 3 Months Immunizations Immunization Administration Dates Next Due COVID-19 mRNA (Mitro) 0.3 m L (30 mcg) vaccine (12 [...] drink = 0.6 oz pur e alcohol) [facility] Utilities Answer Date Recorded In the past [...] declined 02/26/2023 How often do you attend moravian or nondenominational serv ices? Patient declined 02/26/2023 Do you belong to any clubs o r organizations such as moravian groups, unions, fraternal or athletic groups, or [...] place to sleep or slept in a residential (including now)? No 02/26/2023 PHQ-9 Answer Date [...] on file Legal Sex Female 1:45 AM AWNING ASSEMBLER Gender Identity Female 11/17/2020 1:49 PM CDT Sexual Orientation Straight 03/07/2019 4: 08 AM AWNING ASSEMBLER Obstetrics History Para Term AB IAB SAB [...] stairs Contact your local community or senior fowler for information on exercise, fall prevention programs, or options for improving home safety. Medical Devices Implanted Type Area Electrical Appliance Preparer Device Identifier Shelf Expiration Date Model / Serial / Lot [employer] Neuro- Sc-2316-50e Precision Infinion 50cm 1x16 Splitter Trial Lead Kit - [id number] - [id number] Implanted:Qty: 1 on 05/15/2020 at [facility] Lead [employer] Neuro- 03/26/2022 SC-2316- 50E / [id number] / [employer] Neuro- Sc-2316-50e Precision Infinion 50cm 1x16 Splitter Trial Lead Kit - [id number] - [id number] Implanted:Qty: 1 on 05/15/2020 at [facility] Lead [employer] Neuro- 03/26/2022 SC-2316- 50E / [id number] / Lead 74cm Avista Mri Safe - [id number] - [id number] Implanted:Qty: 1 on 07/12/2020 by Maylin Perez MD at [facility] Medicine Lead N/A: Spine Thoracic [employer] Mariana 11/24/2021 SC-2408- 74 / [id number] / [id number] Lead 74cm Avista Mri Safe - [id number] - [id number] Implanted:Qty: 1 on 07/12/2020 by Maylin Perez MD at [facility] Lead N/A: Spine Thoracic [employer] Mariana 11/28/2021 SC-2408- 74 / [id number] / [id number] [employer] Sc-1200 [facility] Kit Generator Neurostimulator Sterile Disposable Latex Free - [id number] - [id number] Implanted:Qty: 1 on 07/12/2020 by Maylin Perez MD at [facility] Other - see comments N/A: Spine Thoracic [employer] Mariana 01/19/2022 SC-1200 / [id number] / [id number] Description:generator [employer] Sc-4319 Clik X Mri [place] Lead - S0 - [id number] Implanted:Qty: 1 on 07/12/2020 by Maylin Perez MD at [facility] Other - see comments N/A: Spine Thoracic [employer] Mariana 05/06/2022 SC-4319 / 0 / [id number] Pins Left: Ankle [employer] Neuro- [id number] Epimed Precision 4in 15d Curve Needle Nerve Stimulator Sterile Latex Free - [id number] Implanted:Qty: 1 on 05/15/2020 at [facility] [employer] Neuro- [id number] / / [employer] Neuro- [id number] Epimed Precision 4in 15d Curve Needle Nerve Stimulator Sterile Latex Free - [id number] Implanted:Qty: 1 on 05/15/2020 at [facility] [employer] Neuro- [id number] / / [employer] Mariana Sc-4116 Precision Spectra 213cm 1x16 Splitter Extension Cable - [id number] Implanted:Qty: 1 on 05/15/2020 at [facility] [employer] Mariana SC-4116 / / [employer] Mariana Sc-4116 Precision Spectra 213cm 1x16 Splitter Extension Cable - [id number] Implanted:Qty: 1 on 05/15/2020 at [facility] [employer] SC-4116 / / Procedures Procedure Name Priority [...] 4:24 AM CDT COLONOSCOPY 02/25/2023 5:56 PM AWNING ASSEMBLER HEPATITIS C ANTIBODY Routine 02/02/2020 1:00 PM [...] of taking vitamin-D and hormone replacement therapy. Electrical Appliance Preparer/Model: COH Discovery SL (S/N [id number]) Facility LSC value of 0.022 for the [...] Netta Alamo M.D. TW: TW Report ID: [id number] Reading Location: [id number] Procedure Note Netta Alamo MD - 09/22/2024 EXAM DESCRIPTION: DEXA AXIAL SKELETON BONE DENSITY 1 OR MORE SITES REASON FOR STUDY: 53 y/o year old F with given history of:Postmenopausal status. History of taking vitamin-D and hormone replacement therapy. Electrical Appliance Preparer/Model: COH Discovery SL (S/N 60839) Facility LSC value of 0.022 for the [...] Netta Alamo M.D. TW: TW Report ID: [id number] Reading Location: [id number] Marine Mayers MD [facility] [place] PROCEDURES Final Re sult * SCREENING [...] Result * Imaging SI Joint Injection Bilateral ([id number]) (09/21/2024 1:34 PM CDT) Narrative RAD_PACS_[facility] - [...] clinical correlation and follow-up as clinically appropriate Bleach Boiler Packer [facility] Comment: PCM, CT(ASCP) CT Screening Location: [place] [facility] Administration [address] [address] Pathologist [place] Comment: Pawan Robertson M.D., [...] CDT 09/03/2024 4:40 PM CDT Cassidy Aparicio MEDICAL TRANSPORT SPECIALIST LAB CYTOLOGY ORDERABLES Final Re sult [facility] [address] [address] [address] * HPV mRNA E6/E7, POST- HYST, VAGINAL W/REFL (08/31/2024 4:24 PM CDT) HPV mRNA E6/E7, Vaginal Not Detected [employer] Comment: REFERENCE RANGE: NOT DETECTED For women with a hysterectomy and previous history of cervical cancer or, with SAUMYA 2 or higher within the last 20 years, screening with cytology every 3 years for 20 years after the initial post treatment surveillance period is reasonable. The role of HPV testing has not been clarified in this population. Methodology: Branch Employment Coordinator-Mediated Amplification This assay detects E6/E7 viral messenger RNA (mRNA) from 14 high-risk HPV types (16,18,31,33,35,39,45,51, 52,56,58,59,66,68). The analytical performance characteristics of this assay have been determined by [employer] [place], [place]. The modifications have not been cleared or approved by the FDA. This assay has been validated pursuant to the CLIA regulations and is used for clinical purposes. For additional information please refer to http://education.Aktana/faq/NPA219w8 (This link is being provided for informational/ educational purposes only.) 08/31/2024 4:24 PM CDT 09/03/2024 4:40 PM CDT us Cassidy Aparicio NP LAB BLOOD ORDERABLES Final Resul t [place] [employer] [address] [facility] [address] * TEST IN QUESTION - CYTOLOGY (08/31/2024 4:24 AM CDT) Status FINAL [facility] Container type TP [facility] Question/Probl em RESOLVED HPV [facility] FINAL RESOLUTION REACCESSION [facility] 08/31/2024 4:24 AM CDT 09/01/2024 8:35 PM CDT Narrative [facility] - 09/03/2024 4:14 PM CDT FASTING: UNKNOWN us Cassidy M. Aparicio MEDICAL TRANSPORT SPECIALIST LAB BLOOD ORDERABLES Final Resul t [place] [facility] [address] [place] [address] * COLONOSCOPY (02/25/2023 5:56 PM AWNING ASSEMBLER) Anatomical Region Laterality Modality Other Narrative Procedure Note Nola Marc MD - 02/25/2023 5:56 PM CST [facility] ENDOSCOPY Patient Name: Judson Orn Procedure Date: 02/25/2023 5:56 PM Date of : 1970 Admit Type: Outpatient Age: 52 Gender: Female Attending MD: Nola Marc M.D. Room: [facility] ENDOSCOPY ROOM 05 Note Status: Finalized [...] The scope was passed under direct vision.The CF-[id number] colonoscope was introduced through theanus and advanced [...] On: 02/25/2023 5:56 PM Recognized by the [place] [employer] for promoting quality in endoscopy Nola Marc MD ENDOSCOPY PROCEDURES Final Resul t * Hepatitis C antibody (02/02/2020 1:00 PM CDT) Hep C Ab Nonreactive Nonreactive [facility] Comment: Interpretive Data Nonreactive: Antibodies to HCV [...] last revised on 2019. Testing performed by: [facility], [address] [place] [address], [address] Blood specimen (specimen) 02/02/2020 1:00 PM CDT 02/02/2020 7:05 PM CDT Cassidy Aparicio NP LAB MICROBIOLOGY - GENERAL ORDER CURT Final Result [facility] ([place]) [address] [facility] Department [place] [address] from Last 3 Months or Most Recently Relevant to Health Maintenance Insurance [facility] Advance Directives For more information, please contact: [phone] Documents on File Type Date Recorded Patient Contract Project Manager Expl anation ADVANCE DIRECTIVE 07/07/2020 12:44 PM [...] 12:32 PM 12/10/2019 8:55 PM Care Teams Lumber Tripper Relationship Specialty Start Date End Date Marine Mayers MD PCP - General 07/12/16
--- OUTSIDE RECORDS SUMMARY | 2024-11-18 13:59 | XMS_ITS | Encounter Summary ---
Author Organization [facility] Healthcare Address [address] [place] [address] Care Team Providers Care Brands Editor Name Role Phone aMrine Mayers MD Primary Care Provider Encounter Details Date Type Department Care Team (Late st Contact Info) Description 01/10/2022 Telephone [facility] [address] [facility] Advanced Medicine [address] [place] [address] Maylin Perez MD [address] [facility] [phone] [place], [place] [id number] Social History Tobacco Use Types Packs/Day Years [...] on file Legal Sex Female 1:45 AM MANAGER TECHNOLOGY Gender Identity Female 11/17/2020 1:49 PM CDT Sexual Orientation Straight 03/07/2019 4: 08 AM MANAGER TECHNOLOGY documented as of this encounter Plan of [...] stairs Contact your local community or senior arvin for information on exercise, fall prevention programs, or options for improving home safety. documented as of this encounter Visit Diagnoses Not on filedocumented in this encounter Care Teams Brands Editor Relationship Specialty Start Date End Date Marine Mayers MD PCP - General 07/12/16 documented as of this encounter
--- OUTSIDE RECORDS SUMMARY | 2024-11-18 13:59 | XMS_ITS | Encounter Summary ---
Author Organization [facility] Healthcare Address [address] [place] [address] Care Team Providers Care Biochemical Engineer Name Role Phone Marine Mayers MD Primary Care Provider Encounter Details Date Type Department Care Team (Late st Contact Info) Description 06/01/2019 Telephone [facility] Center at the [place] [facility] [address] [facility] Advanced Medicine [address] [place] [address] Maylin Perez MD [address] [facility] [phone] [place], [place] [id number] Social History Tobacco Use Types Packs/Day Years [...] on file Legal Sex Female 1:45 AM MOBILITY SPECIALIST Gender Identity Female 11/17/2020 1:49 PM CDT Sexual Orientation Straight 03/07/2019 4: 08 AM MOBILITY SPECIALIST documented as of this encounter Plan of [...] stairs Contact your local community or [facility] [place] for information on exercise, fall prevention programs, or options for improving home safety. documented as of this encounter Visit Diagnoses Not on filedocumented in this encounter Care Teams Biochemical Engineer Relationship Specialty Start Date End Date Marine Mayers MD PCP - General 07/12/16 documented as of this encounter
--- OUTSIDE RECORDS SUMMARY | 2024-11-18 13:59 | XMS_ITS | Encounter Summary ---
Author Organization [facility] Healthcare Address [address] [place] [address] Care Team Providers Care Forestry Supervisor Name Role Phone Marine Mayers MD Primary Care Provider Reason for Visit * Reason Onset Date Comments PMC Preprocedure 07/03/2023 Encounter Details Date Type Department Care Team (Late st Contact Info) Description 07/03/2023 Telephone [facility] Pain Center at the [place] [facility] [address] [facility] Advanced Medicine [address] [place] [address] Maylin Perez MD [address] [facility] [address] [facility] [phone] [place] [address] [facility] Preprocedure Social History Tobacco Use Types Packs/Day Years Used Date Smoking Tobacco: Some Days Cigarettes 0.3 12 Started: 12/13/2010; Last attempted to quit: 12/13/2022 Smokeless Tobacco: Never Comments:Less than 5 cigaret so a month Passive Exposure Comments:5-6 cigarettes a month Alcohol Use Standard Drinks/Week Comments No 0 (1 standard drink = 0.6 oz pur e alcohol) [facility] Utilities Answer Date Recorded In the [...] declined 02/26/2023 How often do you attend yarsani or jainism serv ices? Patient declined 02/26/2023 Do you belong to any clubs o r organizations such as yarsani groups, unions, fraternal or athletic groups, or [...] place to sleep or slept in a usp (including now)? No 02/26/2023 PHQ-9 Answer Date [...] on file Legal Sex Female 1:45 AM RIGGING SUPERVISOR Gender Identity Female 11/17/2020 1:49 PM CDT Sexual Orientation Straight 03/07/2019 4: 08 AM RIGGING SUPERVISOR documented as of this encounter Plan of [...] on filedocumented in this encounter Care Teams Forestry Supervisor Relationship Specialty Start Date End Date Marine Mayers MD PCP - General 07/12/16 documented as of this encounter
--- OUTSIDE RECORDS SUMMARY | 2024-11-18 13:59 | XMS_ITS | Encounter Summary ---
Author Organization [facility] Healthcare Address [address] [place] [address] Care Team Providers Care Tree Fruit And Nut Farming Supervisor Name Role Phone Marine Mayers MD Primary Care Provider [phone] Reason for Visit * Reason Onset Date Comments PMC Preprocedure 09/17/2024 Encounter Details Date Type Department Care Team (Late st Contact Info) Description 09/17/2024 Telephone [facility] Pain Center at the [place] [facility] [address] [facility] Advanced Medicine [address] [place] [address] Maylin Perez MD [address] [facility] [address] [facility] [phone] [place] [address] [facility] Preprocedure Social History Tobacco Use Types Packs/Day Years Used Date Smoking Tobacco: Every Day Cigarettes 0.3 12 Started: 12/13/2010; Last attempted to quit: 12/13/2022 Smokeless Tobacco: Never Comments:Less than 5 cigaret so a month Passive Exposure Comments:5-6 cigarettes a month Alcohol Use Standard Drinks/Week Comments No 0 (1 standard drink = 0.6 oz pur e alcohol) [facility] Utilities Answer Date Recorded In the [...] declined 02/26/2023 How often do you attend sabianism or zoroastrian serv ices? Patient declined 02/26/2023 Do you belong to any clubs o r organizations such as sabianism groups, unions, fraternal or athletic groups, or [...] place to sleep or slept in a jail (including now)? No 02/26/2023 PHQ-9 Answer Date [...] on file Legal Sex Female 1:45 AM FIRST RESPONDER Gender Identity Female 11/17/2020 1:49 PM CDT Sexual Orientation Straight 03/07/2019 4: 08 AM FIRST RESPONDER documented as of this encounter Plan of [...] on filedocumented in this encounter Care Teams Tree Fruit And Nut Farming Supervisor Relationship Specialty Start Date End Date Marine Mayers MD PCP - General 07/12/16 documented as of this encounter
--- OUTSIDE RECORDS SUMMARY | 2024-11-18 13:59 | XMS_ITS | Encounter Summary ---
Author Organization [facility] Healthcare Address [address] [place] [address] Care Team Providers Care Tape Stringer Name Role Phone Marine Mayers MD Primary Care Provider [phone] Encounter Details Date Type Department Care Team (Late st Contact Info) Description 09/22/2024 Results Follow-Up [facility] Primary Care at [facility] [address] [facility] [address], [place] [address] Marine Mayers MD [address] [place] [address] [address] [place] [address] Dexa Axial Skeleton Bone Density [...] drink = 0.6 oz pur e alcohol) [facility] Utilities Answer Date Recorded In the past [...] declined 02/26/2023 How often do you attend religious or moravian serv ices? Patient declined 02/26/2023 Do you belong to any clubs o r organizations such as religious groups, unions, fraternal or athletic groups, or [...] place to sleep or slept in a group home (including now)? No 02/26/2023 PHQ-9 Answer Date [...] on file Legal Sex Female 1:45 AM NETWORK APPLICATIONS SPECIALIST Gender Identity Female 11/17/2020 1:49 PM CDT Sexual Orientation Straight 03/07/2019 4: 08 AM NETWORK APPLICATIONS SPECIALIST documented as of this encounter Plan [...] on filedocumented in this encounter Care Teams Tape Stringer Relationship Specialty Start Date End Date Marine Mayers MD PCP - General 07/12/16 documented as of this encounter
--- OUTSIDE RECORDS SUMMARY | 2024-11-18 13:59 | XMS_ITS | Encounter Summary ---
Author Organization [facility] Healthcare Address [address] [place] [address] Care Team Providers Care Commissioning Manager Name Role Phone Marine Mayers MD Primary Care Provider [phone] Encounter Details Date Type Department Care Team (Late st Contact Info) Description 11/06/2021 Telephone [facility] Pain Center at the [place] [facility] [address] [facility] Advanced Medicine [address] [place] [address] Maylin Perez MD [address] [facility] [phone] [place], [place] [id number] Social History Tobacco Use Types Packs/Day Years [...] on file Legal Sex Female 1:45 AM PANTOGRAPH TRANSFERRER Gender Identity Female 11/17/2020 1:49 PM CDT Sexual Orientation Straight 03/07/2019 4: 08 AM PANTOGRAPH TRANSFERRER documented as of this encounter Functional Status [...] on stairs Contact your local community or central [facility] for information on exercise, fall prevention programs, or options for improving home safety. documented as of this encounter Visit Diagnoses Not on filedocumented in this encounter Care Teams Commissioning Manager Relationship Specialty Start Date End Date Marine Mayers MD PCP - General 07/12/16 documented as of this encounter
--- OUTSIDE RECORDS SUMMARY | 2024-11-18 13:59 | XMS_ITS | Encounter Summary ---
Author Organization [facility] Healthcare Address [address] [place] [address] Care Team Providers Care Hazardous Materials Handler Name Role Phone Marine Mayers MD Primary Care Provider Encounter Details Date Type Department Care Team (Late st Contact Info) Description 11/10/2018 Telephone [facility] Pain Center at [address] [place] [address] Maylin Perez MD [phone] [place] [address] Social History Tobacco Use Types Packs/Day Years Used Date Smoking Tobacco: Former Cigarettes Q uit: 2006 Smokeless Tobacco: Never Alcohol Use Standard Drinks/Week Comments No 0 (1 standard drink = 0.6 oz pur e alcohol) Comments No Sex and Gender Information Value Date Recorded Sex Assigned at Not on file Legal Sex Female 1:45 AM JACQUARD PLATE MAKER Gender Identity Female 11/17/2020 1:49 PM CDT Sexual Orientation Straight 03/07/2019 4: 08 AM JACQUARD PLATE MAKER documented as of this encounter Plan of [...] on stairs Contact your local community or [facility] for information on exercise, fall prevention programs, or options for improving home safety. documented as of this encounter Visit Diagnoses Not on filedocumented in this encounter Care Teams Hazardous Materials Handler Relationship Specialty Start Date End Date Marine Mayers MD PCP - General 07/12/16 documented as of this encounter
--- OUTSIDE RECORDS SUMMARY | 2024-11-18 13:59 | XMS_ITS | Encounter Summary ---
Author Organization [facility] Healthcare Address [address] [place] [address] Care Team Providers Care Professor Of French Name Role Phone Marine Mayers MD Primary Care Provider Reason for Visit * Reason Onset Date Comments Change/resend script 2018 Encounter Details Date Type Department Care Team (Late st Contact Info) Description 2018 Telephone [facility] Center at [address] [place] [address] Maylin Perez MD [phone] [place] [address] Change/resend script Social History Tobacco [...] on file Legal Sex Female 1:45 AM COIL BUILDER Gender Identity Female 11/17/2020 1:49 PM CDT Sexual Orientation Straight 03/07/2019 4: 08 AM COIL BUILDER documented as of this encounter Miscellaneous Notes [...] documented as of this encounter Care Teams Professor Of French Relationship Specialty Start Date End Date Marine Mayers MD PCP - General 07/12/16 documented as of this encounter
--- OUTSIDE RECORDS SUMMARY | 2024-11-18 13:59 | XMS_ITS | Encounter Summary ---
Author Organization [facility] Healthcare Address [address] [place] [address] Care Team Providers Care Demand Planning Analyst Name Role Phone Marine Mayers MD Primary Care Provider Encounter Details Date Type Department Care Team (Late st Contact Info) Description 10/03/2021 Telephone [facility] Pain Center at the [place] for [facility] Medicine [address] [facility] Advanced Medicine [address] [place] [address] Maylin Perze MD [address] [facility] [phone] [place], [place] [phone] Social History Tobacco Use Types Packs/Day Years [...] on file Legal Sex Female 1:45 AM BLISTER RUST ERADICATOR Gender Identity Female 11/17/2020 1:49 PM CDT Sexual Orientation Straight 03/07/2019 4: 08 AM BLISTER RUST ERADICATOR documented as of this encounter Plan of [...] stairs Contact your local community or [facility] [place] for information on exercise, fall prevention programs, or options for improving home safety. documented as of this encounter Visit Diagnoses Not on filedocumented in this encounter Care Teams Demand Planning Analyst Relationship Specialty Start Date End Date Marine Mayers MD PCP - General 07/12/16 documented as of this encounter
[2024-11-18 14:02] VITALS: BP 116/55; PULSE 105; RESP 16; TEMP 36.5; O2SAT 96
--- NOTE | 2024-11-18 14:29 | ED.WOUNDLAC ---
HPI - Wound/Laceration General Chief Complaint: Wound/Laceration Stated Complaint: Wound Check Time Seen by Provider: 11/18/24 14:15 Source: patient and RN notes reviewed Mode of arrival: ambulatory Limitations: no limitations History of Present Illness HPI narrative: 53-year-old female presents to the [facility] complaining of when checked to her right lower extremity. Patient was here few days ago with a skin tear and Steri-Strips were applied. Since then the patient noticed increased redness, swelling, mild pain in my reports that this morning it was hot to touch. Patient says it does not feels hot as it did this morning. Patient says she normally has redness to her lower extremities but says her right leg is more red than usual. Patient has a history dependent edema to her lower extremities from a spine problem she states. Patient does not change the dressing since she left or wash the wound since she was here. Related Data Home Medications ?Medication ?Instructions ?Recorded ?Confirmed ?Last Taken ?Type albuterol sulfate 90 mcg/actuation inhalation 11/15/24 Unknown History aerosol inhaler armodafinil 250 mg tablet mg PO 11/15/24 Unknown History cyclobenzaprine 10 mg tablet mg 11/15/24 Unknown History estradiol 0.01% (0.1 mg/gram) vaginal 11/15/24 Unknown History vaginal cream estradiol 0.1 mg/24 hr semiweekly 11/15/24 Unknown History transdermal patch furosemide 20 mg tablet mg 11/15/24 Unknown History galcanezumab-gnlm 120 mg/mL mg subcut 11/15/24 Unknown History subcutaneous pen injector (Emgality Pen) hydroxyzine HCl 25 mg tablet mg 11/15/24 Unknown History ibandronate 150 mg tablet mg PO 11/15/24 Unknown History methocarbamol 500 mg tablet mg 11/15/24 Unknown History morphine 30 mg tablet,extended mg PO 11/15/24 Unknown History release oxycodone-acetaminophen 5 mg-325 tablet 11/15/24 Unknown History mg tablet potassium citrate 10 mEq (1,080 meq PO 11/15/24 Unknown History mg) tablet,extended release pregabalin 200 mg capsule mg 11/15/24 Unknown History rabeprazole 20 mg tablet,delayed mg PO 11/15/24 Unknown History release zonisamide 100 mg capsule mg PO 11/15/24 Unknown History Allergies Allergy/AdvReac Type Severity Reaction Status Date / Time propoxyphene (From Darvon) Allergy Unknown Unknown Verified 11/18/24 14:13 Review of Systems Review of Systems: CONSTITUTIONAL: Denies fever, chills, or sweats. EYES: Denies visual changes, redness, or discharge. ENT: Denies rhinorrhea, congestion, sore throat, or otalgia. CARDIOVASCULAR: Denies chest pain, palpitations, or edema. RESPIRATORY: Denies cough or dyspnea. GASTROINTESTINAL: Denies abdominal pain, nausea, vomiting, or diarrhea. GENITOURINARY: Denies dysuria or hematuria. SKIN: Denies rash or itching. Positive for skin tear. MUSCULOSKELETAL: Denies back pain, joint pain, or myalgia. NEUROLOGIC: Denies headache, numbness, or weakness. PSYCHIATRIC: Denies anxiety or depression. All other systems reviewed are negative, except as documented in HPI. PMFSH Comments At the time of my signature, I reviewed and agree with the nursing past medical, surgical, social, and family history. There is no relevant family history pertinent to the patient complaint. Exam Narrative: GENERAL: This is a well-nourished, well-developed adult, in no apparent distress. They are non ill-appearing, nontoxic appearing. HEAD: normocephalic, atraumatic. EYES: Sclera clear/white. Conjunctiva normal. Vision is grossly intact. Extraocular movements intact EARS: External ears normal, Hearing grossly intact. NOSE: External nose normal THROAT: Mucous membranes moist, NECK: Neck supple,y. CARDIOVASCULAR: Regular rate and rhythm RESPIRATORY: Respiratory rate normal, respiratory effort nonlabored, no respiratory distress SKIN: Right lower extremity: Large skin tears Steri-Strips present. Skin tear not well approximated and some areas. Wound is healing through secondary intention. Skin tear is ecchymotic with surrounding redness and swelling and 2+ pitting edema. Nontender to palpate, it is warm to touch. No area of fluctuance, no induration. No exudate. NEURO: awake, alert, and oriented to person, place and time. There were no obvious focal neurologic abnormalities. EXTREMITIES: No joint tenderness Course Course Emergency Course: Portions of this record may have been created with voice recognition software Level of Care: Express Care Visit Vital Signs Vital signs: Vital Signs Temperature 97.7 F 11/18/24 14:02 Pulse Rate 105 H 11/18/24 14:02 Respiratory Rate 16 11/18/24 14:02 Blood Pressure 116/55 L 11/18/24 14:02 Pulse Oximetry 96 11/18/24 14:02 Oxygen Delivery Room Air 11/18/24 14:02 Temperature 97.7 F 11/18/24 14:02 Pulse Rate 105 H 11/18/24 14:02 Respiratory Rate 16 11/18/24 14:02 Blood Pressure 116/55 L 11/18/24 14:02 Pulse Oximetry 96 11/18/24 14:02 Oxygen Delivery Room Air 11/18/24 14:02 Reviewed MDM - Wound/Laceration MDM Narrative Medical decision making narrative: Wound is nontender however there is some warmth, swelling could be related to to skin tear. Patient does report mild pain to the area. Will go ahead and treat with doxycycline. Dressing was changed and washed and Vaseline gauze was applied over the skin tear. Strict ER precautions discussed with patient especially if there is worsening redness, swelling, pain, green/shows drainage, fevers body from a chills, nausea vomiting or any other concerns within the next 2 days while on doxycycline. Discussed physical exam findings. Advised supportive measures and signs/symptoms to go to the ER. Pt is appropriate for outpt treatment and f/u. Differential Diagnosis Differential diagnosis: Likely other (Skin tear, cellulitis, wound check) Critical Care Time Critical Care Time Critical Care Time: No Discharge Plan Discharge Clinical Impression: Visit for wound check Patient Disposition: Home Condition: Stable Instructions: Skin Tear (ED), Acute Wounds (DC) Additional Instructions: Use Vaseline gauze and cover the wound. Change the wound dressing daily. You may leave it open to air at night. Wash the wound daily with mild soap and water. Do not use hydrogen peroxide. Do not soak prescribe the wound. Avoid dirty water the wound is healed completely. Doxycycline as directed. If You're going to be outside with while taking doxycycline you need to wear sunscreen. Follow-up with your PCP in 3-5 days for wound recheck. If you get worsening redness, swelling, pain, green/yellow drainage, fevers, chills nausea, vomiting, or any other concerns please go to the ER immediately. Patient Language: Haitian Prescriptions: New doxycycline monohydrate 100 mg capsule 100 mg PO BID 7 Days Qty: 14 0RF No Action cyclobenzaprine 10 mg tablet methocarbamol 500 mg tablet rabeprazole 20 mg tablet,delayed release (DR/EC) PO estradiol 0.1 mg/24 hr patch semiweekly morphine 30 mg tablet extended release PO zonisamide 100 mg capsule PO oxycodone-acetaminophen 5-325 mg tablet potassium citrate 10 mEq (1,080 mg) tablet extended release PO hydroxyzine HCl 25 mg tablet furosemide 20 mg tablet estradiol 0.01 % (0.1 mg/gram) cream VAGINAL albuterol sulfate 90 mcg/actuation HFA aerosol inhaler INHALATION ibandronate 150 mg tablet PO pregabalin 200 mg capsule armodafinil 250 mg tablet PO Emgality Pen 120 mg/mL pen injector SUBCUT Follow-up/Referrals: UNKNOWN,DOCTOR [Primary Care Provider] - Time of Disposition: 14:24
== END 2024-11-18 14:35 | disposition home or self-care (01) ==
DX: Z48.00 Encounter for change or removal of nonsurgical wound dressing (principal); M79.7 Fibromyalgia
CPT/HCPCS: 99213; G0463

== ENCOUNTER 2024-11-19 12:45 | Emergency (ER) | payer OTHER, SELFPAY ==
--- OUTSIDE RECORDS SUMMARY | 2024-11-19 12:48 | XMS_ITS | Encounter Summary ---
Author Organization [facility] Healthcare Address [address] [place] [address] Care Team Providers Care Pulverizing And Sifting Operator Name Role Phone Marine Mayers MD Primary Care Provider Encounter Details Date Type Department Care Team (Late st Contact Info) Description 11/06/2021 Telephone [facility] Pain Center at the [place] for Advanced Medicine [address] [facility] Advanced Medicine [address] [place] [address] Maylin Perez MD [address] [facility] [phone] [place], [place] [phone] Social History Tobacco Use Types Packs/Day Years [...] on file Legal Sex Female 1:45 AM HYPOID GEAR TESTER Gender Identity Female 11/17/2020 1:49 PM CDT Sexual Orientation Straight 03/07/2019 4: 08 AM HYPOID GEAR TESTER documented as of this encounter Functional Status [...] on stairs Contact your local community or [facility] for information on exercise, fall prevention programs, or options for improving home safety. documented as of this encounter Visit Diagnoses Not on filedocumented in this encounter Care Teams Pulverizing And Sifting Operator Relationship Specialty Start Date End Date Marine Mayers MD PCP - General 07/12/16 documented as of this encounter
--- OUTSIDE RECORDS SUMMARY | 2024-11-19 12:48 | XMS_ITS | Encounter Summary ---
Author Organization [facility] Healthcare Address [address] [place] [address] Care Team Providers Care Laborer Landscape Name Role Phone aMrine Mayers MD Primary Care Provider Reason for Visit * Reason Onset Date Comments PMC Preprocedure 07/03/2023 Encounter Details Date Type Department Care Team (Late st Contact Info) Description 07/03/2023 Telephone [facility] Pain Center at the [place] for [facility] [address] [facility] Advanced Medicine [address] [place] [address] Maylin Perez MD [address] [facility] [address] [facility] [phone] [place] [address] [facility] Preprocedure Social History Tobacco Use Types Packs/Day Years Used Date Smoking Tobacco: Some Days Cigarettes 0.3 12 Started: 12/13/2010; Last attempted to quit: 12/13/2022 Smokeless Tobacco: Never Comments:Less than 5 cigaret so a month Passive Exposure Comments:5-6 cigarettes a month Alcohol Use Standard Drinks/Week Comments No 0 (1 standard drink = 0.6 oz pur e alcohol) [facility] Utilities Answer Date Recorded In the [...] declined 02/26/2023 How often do you attend alevism or church serv ices? Patient declined 02/26/2023 Do you belong to any clubs o r organizations such as alevism groups, unions, fraternal or athletic groups, or [...] No 02/26/2023 Housing Stability Vital Sign Answer Kmeal e Recorded In the last 12 months, [...] on file Legal Sex Female 1:45 AM ANGIOGRAPHER Gender Identity Female 11/17/2020 1:49 PM CDT Sexual Orientation Straight 03/07/2019 4: 08 AM ANGIOGRAPHER documented as of this encounter Plan of [...] on filedocumented in this encounter Care Teams Laborer Landscape Relationship Specialty Start Date End Date Marine Mayers MD PCP - General 07/12/16 documented as of this encounter
--- OUTSIDE RECORDS SUMMARY | 2024-11-19 12:48 | XMS_ITS | Encounter Summary ---
Author Organization [facility] Healthcare Address [address] [place] [address] Care Team Providers Care Certified Coatings Inspector Name Role Phone Marine Mayers MD Primary Care Provider Encounter Details Date Type Department Care Team (Late st Contact Info) Description 09/30/2022 Orders Only [facility] Pain Center at the [place] for [facility] Medicine [address] [facility] Advanced Medicine [address] [place] [address] Teresa Piña RN Social History Tobacco Use [...] on file Legal Sex Female 1:45 AM SAP CONSULTANT Gender Identity Female 11/17/2020 1:49 PM CDT Sexual Orientation Straight 03/07/2019 4: 08 AM SAP CONSULTANT documented as of this encounter Plan of [...] 09/30/2022 documented in this encounter Care Teams Certified Coatings Inspector Relationship Specialty Start Date End Date Marine Mayers MD PCP - General 07/12/16 documented as of this encounter
--- OUTSIDE RECORDS SUMMARY | 2024-11-19 12:48 | XMS_ITS | Encounter Summary ---
Author Organization [facility] Healthcare Address [address] [place] [address] Care Team Providers Care Time Checker Name Role Phone Marine Mayers MD Primary Care Provider [phone] Encounter Details Date Type Department Care Team (Late st Contact Info) Description 09/30/2022 Orders Only [facility] at the [place] [facility] [address] [facility] Advanced Medicine [address] [place] [address] Maylin Perez MD [address] [facility] [address] [facility] [phone] [place], [place] [id number] Social History Tobacco Use Types Packs/Day Years Used Date Smoking Tobacco: Some Days Cigarettes 0.1 12 Started: 1994; Last attempted to quit: 2006 Smokeless Tobacco: Never Comments:4 cigarettes per [facility] Passive Exposure Comments:5-6 cigarettes a month Alcohol [...] on file Legal Sex Female 1:45 AM SOURCE INSPECTOR Gender Identity Female 11/17/2020 1:49 PM CDT Sexual Orientation Straight 03/07/2019 4: 08 AM SOURCE INSPECTOR documented as of this encounter Plan [...] 09/30/2022 documented in this encounter Care Teams Time Checker Relationship Specialty Start Date End Date Marine Mayers MD PCP - General 07/12/16 documented as of this encounter
--- OUTSIDE RECORDS SUMMARY | 2024-11-19 12:48 | XMS_ITS | Encounter Summary ---
Author Organization [facility] Healthcare Address [address] [place] [address] Care Team Providers Care Cutlery Grinder Name Role Phone Marine Mayers MD Primary Care Provider Encounter Details Date Type Department Care Team (Late st Contact Info) Description 01/10/2022 Telephone [facility] at the [place] [facility] [address] [facility] Advanced Medicine [address] [place] [address] Maylin Perez MD [address] [facility] [phone] [place], [place] [id number] Social History Tobacco Use Types Packs/Day Years [...] on file Legal Sex Female 1:45 AM ART CRITIC Gender Identity Female 11/17/2020 1:49 PM CDT Sexual Orientation Straight 03/07/2019 4: 08 AM ART CRITIC documented as of this encounter Plan of [...] stairs Contact your local community or senior [place] for information on exercise, fall prevention programs, or options for improving home safety. documented as of this encounter Visit Diagnoses Not on filedocumented in this encounter Care Teams Cutlery Grinder Relationship Specialty Start Date End Date Marine Mayers MD PCP - General 07/12/16 documented as of this encounter
--- OUTSIDE RECORDS SUMMARY | 2024-11-19 12:48 | XMS_ITS | Encounter Summary ---
Author Organization [facility] Healthcare Address [address] [place] [address] Care Team Providers Care Visual Education Teacher Name Role Phone Marine Mayers MD Primary Care Provider Encounter Details Date Type Department Care Team (Late st Contact Info) Description 09/22/2024 Results Follow-Up [facility] Medical Group Primary Care at [facility] [address] [facility] [address] [address] Marine Mayers MD [address] [place] [address] [address] [place] [address] Dexa Axial Skeleton Bone Density [...] drink = 0.6 oz pur e alcohol) [facility] Utilities Answer Date Recorded In the past [...] declined 02/26/2023 How often do you attend rastafarian or jehovah's witness serv ices? Patient declined 02/26/2023 Do you belong to any clubs o r organizations such as rastafarian groups, unions, fraternal or athletic groups, or [...] place to sleep or slept in a fpc (including now)? No 02/26/2023 PHQ-9 Answer Date [...] on file Legal Sex Female 1:45 AM FAX MACHINE REPAIRER Gender Identity Female 11/17/2020 1:49 PM CDT Sexual Orientation Straight 03/07/2019 4: 08 AM FAX MACHINE REPAIRER documented as of this encounter Plan of [...] on filedocumented in this encounter Care Teams Visual Education Teacher Relationship Specialty Start Date End Date Marine Mayers MD PCP - General 07/12/16 documented as of this encounter
--- OUTSIDE RECORDS SUMMARY | 2024-11-19 12:48 | XMS_ITS | Encounter Summary ---
Author Organization [facility] Healthcare Address [address] [place] [address] Care Team Providers Care Soft Water Mechanic Name Role Phone Marine Mayers MD Primary Care Provider Encounter Details Date Type Department Care Team (Late st Contact Info) Description 06/01/2019 Telephone [facility] at the [place] [facility] [address] [facility] Advanced Medicine [address] [place] [address] Maylin Perez MD [address] [facility] [phone] [place], [place] [id number] Social History Tobacco Use Types Packs/Day Years [...] on file Legal Sex Female 1:45 AM PIPELINE INSPECTOR Gender Identity Female 11/17/2020 1:49 PM CDT Sexual Orientation Straight 03/07/2019 4: 08 AM PIPELINE INSPECTOR documented as of this encounter Plan [...] stairs Contact your local community or senior [place] for information on exercise, fall prevention programs, or options for improving home safety. documented as of this encounter Visit Diagnoses Not on filedocumented in this encounter Care Teams Soft Water Mechanic Relationship Specialty Start Date End Date Marine Mayers MD PCP - General 07/12/16 documented as of this encounter
--- OUTSIDE RECORDS SUMMARY | 2024-11-19 12:48 | XMS_ITS | Encounter Summary ---
Author Organization [facility] Healthcare Address [address] [place] [address] Care Team Providers Care Corporate Treasurer Name Role Phone Marine Mayers MD Primary Care Provider Encounter Details Date Type Department Care Team (Late st Contact Info) Description 11/10/2018 Telephone [facility] Pain Center at [address] [place] [address] Maylin Perez MD [phone] [place] [address] Social History Tobacco Use Types Packs/Day Years Used Date Smoking Tobacco: Former Cigarettes Q uit: 2006 Smokeless Tobacco: Never Alcohol Use Standard Drinks/Week Comments No 0 (1 standard drink = 0.6 oz pur e alcohol) Comments No Sex and Gender Information Value Date Recorded Sex Assigned at Not on file Legal Sex Female 1:45 AM 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 for information on exercise, fall prevention programs, or options for improving home safety. documented as of this encounter Visit Diagnoses Not on filedocumented in this encounter Care Teams Corporate Treasurer Relationship Specialty Start Date End Date Marine Mayers MD PCP - General 07/12/16 documented as of this encounter
--- OUTSIDE RECORDS SUMMARY | 2024-11-19 12:48 | XMS_ITS | Encounter Summary ---
Author Organization [facility] Healthcare Address [address] [place] [address] Care Team Providers Care Reclamation Engineer Name Role Phone Marine Mayers MD Primary Care Provider Reason for Visit * Reason Onset Date Comments PMC Preprocedure 09/17/2024 Encounter Details Date Type Department Care Team (Late st Contact Info) Description 09/17/2024 Telephone [facility] [place] [facility] [address] [facility] Advanced Medicine [address] [place] [address] Maylin Perez MD [address] [facility] [address] [facility] [phone] [place] [address] [facility] Preprocedure Social History Tobacco Use Types Packs/Day Years Used Date Smoking Tobacco: Every Day Cigarettes 0.3 12 Started: 12/13/2010; Last attempted to quit: 12/13/2022 Smokeless Tobacco: Never Comments:Less than 5 cigaret so a month Passive Exposure Comments:5-6 cigarettes a month Alcohol Use Standard Drinks/Week Comments No 0 (1 standard drink = 0.6 oz pur e alcohol) [facility] Utilities Answer Date Recorded In the [...] declined 02/26/2023 How often do you attend samaritan or pentecostal serv ices? Patient declined 02/26/2023 Do you belong to any clubs o r organizations such as samaritan groups, unions, fraternal or athletic groups, or [...] place to sleep or slept in a halfway (including now)? No 02/26/2023 PHQ-9 Answer Date [...] on file Legal Sex Female 1:45 AM AUTHORIZATION COORDINATOR Gender Identity Female 11/17/2020 1:49 PM CDT Sexual Orientation Straight 03/07/2019 4: 08 AM AUTHORIZATION COORDINATOR documented as of this encounter Plan of [...] on filedocumented in this encounter Care Teams Reclamation Engineer Relationship Specialty Start Date End Date Marine Mayers MD PCP - General 07/12/16 documented as of this encounter
--- OUTSIDE RECORDS SUMMARY | 2024-11-19 12:48 | XMS_ITS | Encounter Summary ---
Author Organization [facility] Healthcare Address [address] [place] [address] Care Team Providers Care Lawn Care Professional Name Role Phone Marine Mayers MD Primary Care Provider [phone] Encounter Details Date Type Department Care Team (Late st Contact Info) Description 10/03/2021 Telephone [facility] Pain Center at the [place] [facility] [address] [facility] Advanced Medicine [address] [place] [address] Maylin Perez MD [address] [facility] [address] [phone] [place], [place] [id number] Social History Tobacco Use Types Packs/Day Years [...] on file Legal Sex Female 1:45 AM SENIOR FIRMWARE ENGINEER Gender Identity Female 11/17/2020 1:49 PM CDT Sexual Orientation Straight 03/07/2019 4: 08 AM SENIOR FIRMWARE ENGINEER documented as of this encounter Plan of [...] stairs Contact your local community or senior [place] for information on exercise, fall prevention programs, or options for improving home safety. documented as of this encounter Visit Diagnoses Not on filedocumented in this encounter Care Teams Lawn Care Professional Relationship Specialty Start Date End Date Marine Mayers MD PCP - General 07/12/16 documented as of this encounter
--- OUTSIDE RECORDS SUMMARY | 2024-11-19 12:48 | XMS_ITS | Encounter Summary ---
Author Organization [facility] Healthcare Address [address] [place] [address] Care Team Providers Care Superintendent Measurement Name Role Phone Marine Mayers MD Primary Care Provider [phone] Reason for Visit * Reason Onset Date Comments Change/resend script 2018 Encounter Details Date Type Department Care Team (Late st Contact Info) Description 2018 Telephone [facility] Center at [address] [place] [address] Maylin Perez MD [address] [phone] [place] [address] Change/resend script Social History Tobacco [...] on file Legal Sex Female 1:45 AM PROGRAM AND RESEARCH COORDINATOR Gender Identity Female 11/17/2020 1:49 PM CDT Sexual Orientation Straight 03/07/2019 4: 08 AM PROGRAM AND RESEARCH COORDINATOR documented as of this encounter Miscellaneous Notes [...] documented as of this encounter Care Teams Superintendent Measurement Relationship Specialty Start Date End Date Marine Mayers MD PCP - General 07/12/16 documented as of this encounter
--- OUTSIDE RECORDS SUMMARY | 2024-11-19 12:48 | XMS_ITS | Clinical Summary ---
Author Organization [facility] Address [address] [address] Care Team Providers Care Bradder Name Role Phone Marine Mayers MD Primary [...] of her exact reaction Lamotrigine Itching Medium Quamba Other (See comments) Low Incontinence Methylphenidate Other [...] and brakes And basket Provider plus in [place] 1 each 1 05/22/19 22 Active aspirin [...] 04/26/2021 Assessment & Plan (04/26/2021 3:41 PM SINGEING TORCH OPERATOR): HPV counseling given. Patient would like [...] 03/21/2020 Assessment & Plan (03/21/2020 5:25 PM SINGEING TORCH OPERATOR): Excellent horizontal eye alignment with small [...] messages Assessment & Plan (03/13/2020 1:27 PM SINGEING TORCH OPERATOR): Assessment & Plan: I recommend that [...] ablation Assessment & Plan (03/25/2023 10:10 AM SINGEING TORCH OPERATOR): The patient apparently has been discussing [...] 09/13/2019 Assessment & Plan (02/26/2022 10:18 AM SINGEING TORCH OPERATOR): The patient is a 51-year-old female [...] patient was located at home in the [facility]. The patient visit started at 10:00 a.m. and ended at 10:18 a.m.. The patient has been informed that the visit may not be secure and acknowledged the information. I have explained the option of participating in a telephone or video visit during [facility] the patient. After being given [...] @ME@ Assessment & Plan (04/24/2021 2:13 PM SINGEING TORCH OPERATOR): The patient is a 50-year-old female [...] patient was located at home in the [facility]. The patient visit started at 1:47 p.m. and ended at 2:18 p.m.. The patient has been informed that the visit may not be secure and acknowledged the information. I have explained the option of participating in a telephone or video visit during the [facility] [place] [address] emergency to the patient. After being given [...] a telephone or video visit during the [facility] [place] [address] emergency to the patient. After being given an opportunity to ask questions about and discuss this type of visit, the patient verbally consented to proceeding with the telephone/video visit. The patient understands that this service replaces an office visit and they may be billed and/or responsible for any applicable copayments. @SIGENC2@ @TX@ Assessment & Plan (12/05/2020 8:30 AM CDT): [...] patient was located at home in the [facility]. The patient visit started at 7:55 a.m. and ended at 8:30 a.m.. The patient has been informed that the visit may not be secure and acknowledged the information. I have explained the option of participating in a telephone or video visit during the [facility] emergency to the patient. After being given [...] a telephone or video visit during the [facility] [place] [address] emergency to the patient. After being given an opportunity to ask questions about and discuss this type of visit, the patient verbally consented to proceeding with the telephone/video visit. The patient understands that this service replaces an office visit and they may be billed and/or responsible for any applicable copayments. @SIGENC2@ @TX@ Assessment & Plan (07/13/2020 1:22 PM CDT): --Continue PRN hydroxyzine and PRN sumatriptan Assessment & Plan (07/12/2020 10:16 PM CDT): --Continue PRN hydroxyzine and PRN sumatriptan Assessment & Plan (03/16/2020 3:27 PM SINGEING TORCH OPERATOR): Repeated botox injection Assessment & Plan [...] (06/03/2019): Added automatically from request for surgery [id number] Assessment & Plan (06/22/2019 9:07 AM CDT): Diet as tolerated. Okay to return to work with light duty. No heavy lifting greater than 20 lb for 4 weeks. No submerging incisions for 4 weeks. Please call for any further questions or concerns. Assessment & Plan (06/03/2019 9:54 AM SINGEING TORCH OPERATOR): Given the findings on imaging and [...] 04/26/2019 Assessment & Plan (04/26/2019 11:49 AM SINGEING TORCH OPERATOR): Occurs intermittently and describes as sharp/burning. [...] 04/26/2019 Assessment & Plan (04/26/2019 11:13 AM SINGEING TORCH OPERATOR): Likely due to polypharmacy including chronic [...] 04/26/2019 Assessment & Plan (04/26/2019 12:01 PM SINGEING TORCH OPERATOR): See gastroparesis for plan Hormone replacement [...] HRT. Assessment & Plan (03/19/2022 6:08 PM SINGEING TORCH OPERATOR): Risks vs benefits of HRT discussed such as increased risk of blood clots leading to possible heart attack, stroke, and increased risk of breast cancer; pt. verbalizes understanding and wishes to proceed with HRT. Assessment & Plan (04/26/2021 3:19 PM SINGEING TORCH OPERATOR): Risks vs benefits of HRT discussed such as increased risk of blood clots leading to possible heart attack, stroke, and increased risk of breast cancer; pt. verbalizes understanding and wishes to proceed with HRT. Refills sent to pharmacy. Assessment & Plan (02/14/2019 11:58 AM SINGEING TORCH OPERATOR): Continue estradiol as directed. Risks vs benefits of HRT discussed such as increased risk of blood clots leading to possible heart attack, stroke, and increased risk of breast cancer; pt. verbalizes understanding and wishes to proceed with HRT. Lower abdominal pain 02/10/2019 Overview (02/10/2019): Added automatically from request for surgery [id number] Assessment & Plan (02/10/2019 2:57 PM CDT): [...] encouraged her to follow up with a [employer] doctor as well. Dysphagia 02/10/2019 Overview (02/10/2019): Added automatically from request for surgery [id number] Assessment & Plan (04/26/2019 11:59 AM SINGEING TORCH OPERATOR): Pt says no recent issues with swallowing. Will refer to ENT if this issue re- occurs. Assessment & Plan (02/10/2019 2:54 PM CDT): Patient has issues with choking on my own spit about 3-4 times a week. She says it has occurred more often recently. Will setup EGD. Drug-induced constipation 02/10/2019 Assessment & Plan (04/26/2019 11:59 AM SINGEING TORCH OPERATOR): Pt says she is having BM almost everyday but is having 1-2 on Calvert stool scale. Likely due to chronic narcotic [...] pain Assessment & Plan (03/17/2019 11:10 PM SINGEING TORCH OPERATOR): BMI Follow-up includes: nutrition counseling and [...] the exam were completed as outlined by [facility] Assessment & Plan (03/08/2019 1:45 PM SINGEING TORCH OPERATOR): I have reviewed the Medicare Wellness [...] needed Assessment & Plan (03/14/2020 7:52 PM SINGEING TORCH OPERATOR): Stay on triam/hctz once per day Assessment & Plan (03/08/2019 1:33 PM SINGEING TORCH OPERATOR): Continue the triamterene/hctz and continue low [...] months Assessment & Plan (04/20/2024 10:36 AM SINGEING TORCH OPERATOR): The patient is a 53-year-old female [...] her friend's house in the state of [place]. The patient visit started at 8:45 a.m. [...] and/or responsible for any applicable copayments. @SIGENC2@ @TX@ Assessment & Plan (06/23/2023 2:37 PM CDT): The patient is doing very well on a combination of zonisamide and Emgality for her migraines and follow up with Dr. Blount Assessment & Plan (03/25/2023 10:09 AM SINGEING TORCH OPERATOR): The patient is doing very well [...] at her friend's house in the state [facility]. The patient visit started at 9:57 [...] and/or responsible for any applicable copayments. @JAYJAY2@ @[place]@ Assessment & Plan (07/03/2022 10:14 AM CDT): [...] with the patient for over 30 minutes [id number] and spent >50% of the visit reviewing [...] copayments. Assessment & Plan (06/14/2019 12:04 PM SINGEING TORCH OPERATOR): Botox injection #1 Assessment & Plan (04/19/2019 10:07 AM SINGEING TORCH OPERATOR): At this point the patient is [...] I gave her the name of a [facility] physician who actually implants though so [...] planning Assessment & Plan (03/08/2019 1:24 PM SINGEING TORCH OPERATOR): -she takes imitrex mixed with anaprox [...] be eligible for the assistance program through [employer]. I have given her 2 months of [...] elevated. Assessment & Plan (03/13/2020 1:52 PM SINGEING TORCH OPERATOR): On rabeprazole and stay on this Assessment & Plan (03/08/2019 1:43 PM SINGEING TORCH OPERATOR): Stay on rabeprazole and get EGD [...] also Assessment & Plan (03/13/2020 1:29 PM SINGEING TORCH OPERATOR): Recheck and consider additional med Assessment [...] day Assessment & Plan (03/13/2020 1:52 PM SINGEING TORCH OPERATOR): Stay on vitamin D 2000 international units per day Assessment & Plan (03/08/2019 1:44 PM SINGEING TORCH OPERATOR): Stay on vitamin D 2,000 international [...] nuvigil Assessment & Plan (03/08/2019 1:25 PM SINGEING TORCH OPERATOR): Stay on nuvigil as needed Assessment & Plan (12/29/2017 1:09 PM CDT): Stay on nuvigil Assessment & Plan (12/23/2016 1:41 PM CDT): -nuvigil as needed Central sleep apnea 08/28/2013 Overview (03/13/2020): She sees Praneeth Bahena about this and Dr. Carmen is prescribing the BIPAP. She has headaches related to her central sleep apnea. Assessment & Plan (03/13/2020 1:41 PM SINGEING TORCH OPERATOR): Continue to see Praneeth Bahena NP [...] oxycodone Assessment & Plan (03/14/2020 7:51 PM SINGEING TORCH OPERATOR): Follow with Dr. Perez for pain control. She's on many pain medication but still has chronic severe pain. Xrays in 04/2019 of lumbar spine stable compared with prior xrays. Assessment & Plan (03/08/2019 1:42 PM SINGEING TORCH OPERATOR): Follow-up with Dr. Perez. Assessment & [...] needed Assessment & Plan (03/08/2019 1:24 PM SINGEING TORCH OPERATOR): Stay on lyrica and flexeril as [...] of Orthopedic Surgery Professor Of Neurological Surgery Co-associate art director/Adult Spinal Deformity Service S/P insertion of spinal [...] Department Care Team Description 11/03/2024 Orders Only [facility] [address] [place] [address] [place] [id number] Maylin Perez MD Sacroiliitis (Primary Dx); Sacroiliac dysfunction 10/27/2024 Telephone [facility] [address] [place] [address] Cassidy Aparicio NP Switch patch 09/22/2024 12:48 PM CDT - 09/22/2024 11:59 PM CDT Hospital Encounter [address] [address] Discharge Disposition: Discharge to home or self care 09/22/2024 12:30 PM CDT - 09/22/2024 11:59 PM CDT Hospital Encounter [address] [address] Encounter for breast cancer screening using non-mammogram modality; Vitamin D deficiency; Other specified disorders of bone density and structure, multiple sites Discharge Disposition: Discharge to home or self care 09/22/2024 Results Follow-Up [facility] at [facility] [address], [place] [id number] Marine Mayers MD Dexa Axial Skeleton Bone Density 1 or 2 Site, SCREENING MAMMOGRAM BILATERAL W SHARDA 09/21/2024 12:12 PM CDT - 09/21/2024 11:59 PM CDT Hospital Encounter [facility] [address] [place] [address] Advanced Medicine [address] [place] [address] Maylin Perez MD Chronic bilateral low back pain with bilateral sciatica; Sacroiliitis Discharge Disposition: Discharge to home or self care 09/17/2024 Telephone [facility] [address] [place] [address] [facility] [address] [place] [address] Maylin Perez MD PMC Preprocedure 09/15/2024 Orders Only [facility] [address] [facility] [address] [place] [address] Maylin Perez MD 09/13/2024 Results Follow-Up [facility] [address] [place] [address] [address] [place] [address] Cassidy Aparicio NP Pap only 09/09/2024 Orders Only [facility] at the [address] [facility] [address] [place] [address] Maylin Perez MD Sacroiliitis (Primary Dx) 09/03/2024 Telephone [facility] [address] [place] [address] [address] [place] [address] Cassidy Aparicio NP Vaginal Pap Smear 08/31/2024 3:00 PM CDT Office Visit [facility] [address] [place] [address] [address] [place] [address] Cassidy Aparicio NP Well woman exam (Primary Dx); Routine gynecological examination; Hormone replacement therapy (HRT); Encounter for screening mammogram for breast cancer from Last 3 Months Immunizations Immunization Administration Dates Next Due COVID-19 mRNA (MySQUAR) 0.3 m L (30 mcg) vaccine (12 [...] right peroneal nrve (right foot) CYSTOSCOPY 2014, 2016 03/26/16; 02/27/15 EPIDURAL STEROID INJECTION 12/30/2017 multiple LAPAROSCOPY [...] 0.6 oz pur e alcohol) [facility] Utilities Answer Date Recorded In the past 12 months has [email or web address] electric, gas, oil, or water company threatened [...] declined 02/26/2023 How often do you attend christianity or anglican serv ices? Patient declined 02/26/2023 Do you belong to any clubs o r organizations such as christianity groups, unions, fraternal or athletic groups, or [...] place to sleep or slept in a retirement (including now)? No 02/26/2023 PHQ-9 Answer Date [...] on file Legal Sex Female 1:45 AM SINGEING TORCH OPERATOR Gender Identity Female 11/17/2020 1:49 PM CDT Sexual Orientation Straight 03/07/2019 4: 08 AM SINGEING TORCH OPERATOR Obstetrics History Para Term AB IAB [...] stairs Contact your local community or senior dewar for information on exercise, fall prevention programs, or options for improving home safety. Medical Devices Implanted Type Area Security Assessor Device Identifier Shelf Expiration Date Model / Serial / Lot [employer] Neuro- Sc-2316-50e Precision Infinion 50cm 1x16 Splitter Trial Lead Kit - [id number] - [id number] Implanted:Qty: 1 on 05/15/2020 at [facility] Lead [employer] Neuro- 03/26/2022 SC-2316- 50E / [id number] / [employer] Neuro- Sc-2316-50e Precision Infinion 50cm 1x16 Splitter Trial Lead Kit - [id number] - [id number] Implanted:Qty: 1 on 05/15/2020 at [facility] Lead [employer] Neuro- 03/26/2022 SC-2316- 50E / [id number] / Lead 74cm Avista Mri Safe - [id number] - [id number] Implanted:Qty: 1 on 07/12/2020 by Maylin Perez MD at [facility] Lead N/A: Spine Thoracic [employer] Mariana 11/24/2021 SC-2408- 74 / [id number] / [id number] Lead 74cm [employer]ista Mri Safe - [id number] - [id number] Implanted:Qty: 1 on 07/12/2020 by Maylin Perez MD at [facility] Lead N/A: Spine Thoracic [employer] Mariana 11/28/2021 SC-2408- 74 / [id number] / [id number] [employer] Sc-1200 Precison Montage Kit Generator Neurostimulator Sterile Disposable Latex Free - [id number] - [id number] Implanted:Qty: 1 on 07/12/2020 by Maylin Perez MD at [facility] Other - see comments N/A: Spine Thoracic [employer] Mariana 01/19/2022 SC-1200 / [id number] / [id number] Description:generator [employer] Sc-4319 Clik X Mri [place] Lead - S0 - [id number] Implanted:Qty: 1 on 07/12/2020 by [facility] Other - see comments N/A: Spine Thoracic [employer] Mariana 05/06/2022 [id number] / 0 / [id number] Pins Left: Ankle [employer] Neuro- [id number] Epimed Precision 4in 15d Curve Needle Nerve Stimulator Sterile Latex Free - [id number] Implanted:Qty: 1 on 05/15/2020 at [facility] [employer] Neuro- [id number] / / [employer] Neuro- [id number] Epimed Precision 4in 15d Curve Needle Nerve Stimulator Sterile Latex Free - [id number] Implanted:Qty: 1 on 05/15/2020 at [facility] [employer] Neuro- [id number] / / Zinkia Mariana Sc-4116 Precision Spectra 213cm 1x16 Splitter Extension Cable - [id number] Implanted:Qty: 1 on 05/15/2020 at [facility] SC-4116 / / [employer] Gl[employer]io Sc-4116 Precision Spectra 213cm 1x16 Splitter Extension Cable - [id number] Implanted:Qty: 1 on 05/15/2020 at [facility] SC-4116 / / Procedures Procedure Name Priority [...] 4:24 AM CDT COLONOSCOPY 02/25/2023 5:56 PM SINGEING TORCH OPERATOR HEPATITIS C ANTIBODY Routine 02/02/2020 1:00 [...] of taking vitamin-D and hormone replacement therapy. Security Assessor/Model: [employer] Kids Discovery SL (S/N [id number]) Facility LSC value of 0.022 for the [...] Netta Alamo M.D. TW: TW Report ID: [id number] Reading Location: [id number] Procedure Note Netta Alamo MD - 09/22/2024 EXAM DESCRIPTION: DEXA AXIAL SKELETON BONE DENSITY 1 OR MORE SITES REASON FOR STUDY: 53 y/o year old F with given history of:Postmenopausal status. History of taking vitamin-D and hormone replacement therapy. Security Assessor/Model: [employer] Discovery SL (S/N 20069) Facility LSC value of 0.022 for the [...] Netta Alamo M.D. TW: TW Report ID: [id number] Reading Location: [id number] Marine Mayers MD [facility] DXA PROCEDURES Final Re [...] distortion in either breast. Marine Mayers MD [facility] MAMMO PROCEDURES Final Result * Imaging SI Joint Injection Bilateral ([id number]) (09/21/2024 1:34 PM CDT) Narrative [facility] - 09/21/2024 1:34 PM CDT The images from this study are not interpreted by Radiology. Please refer to the physician's procedure / OR operative note. Maylin Perez MD [facility] PAIN MGMT PROCEDURES F inal Result [facility] * (ABNORMAL) Pap only (08/31/2024 4:24 PM CDT) CLINICAL INFORMATION: Roxane Veronica Comment:Hysterectomy LMP Roxane Veronica Comment:HYST Previous Pap Roxane Veronica Comment:NONE GIVEN Prev. Bx Roxane Veronica Comment:NONE GIVEN SOURCE: Roxane Veronica Comment:Vagina Pap, specimen adequacy Roxane Veronica Comment:SATISFACTORY FOR EDGAR LUATION Pap, general categorization (A) Roxane Veronica Comment:Cytology Results: Ep ithelial Cell Abnormality HPV interp (A) Roxane Veronica Comment: Atypical Squamous Cells of Undetermined Significance (ASC-US) COMMENTS Roxane Veronica Comment: This Pap test has been evaluated with computer assisted technology. Suggest clinical correlation and follow-up as clinically appropriate Golf Ball Molder [address] [facility] Val Veronica Comment: PCM, CT(ASCP) CT Screening Location: [facility] [place] [facility] [address] [address] Pathologist Roxane Veronica Comment: Pawan Robertson M.D., Board Certified in Anatomic Pathology and Cytopathology. (electronic signature) Pathologist Release Date/Time: 09/13/2024 12:18PM Comment Roxane Veronica Comment: EXPLANATORY NOTE: The Pap is [...] NP LAB CYTOLOGY ORDERABLES Final Re sult [facility] [address] [address] [address] * HPV mRNA E6/E7, POST- HYST, VAGINAL W/REFL (08/31/2024 4:24 PM CDT) HPV mRNA E6/E7, Vaginal Not Detected [facility] [place] [facility]/ Leonila LIN Comment: REFERENCE RANGE: NOT DETECTED For women with a hysterectomy and previous history of cervical cancer or, with SAUMYA 2 or higher within the last 20 years, screening with cytology every 3 years for 20 years after the initial post treatment surveillance period is reasonable. The role of HPV testing has not been clarified in this population. Methodology: Journeyman Painter-Mediated Amplification This assay detects E6/E7 viral messenger RNA (mRNA) from 14 high-risk HPV types (16,18,31,33,35,39,45,51, 52,56,58,59,66,68). The analytical performance characteristics of this assay have been determined by [employer] [place], [place]. The modifications have not been cleared or approved by the FDA. This assay has been validated pursuant to the CLIA regulations and is used for clinical purposes. For additional information please refer to http://education.[employer]/faq/XUX175v5 (This link is being provided for informational/ educational purposes only.) 08/31/2024 4:24 PM CDT 09/03/2024 4:40 PM CDT Cassidy Aparicio NP LAB BLOOD ORDERABLES Final Resul t [facility] [place] [facility] Kike/Leonila [facility] [address] [facility] [place] [address] * TEST IN [facility] - CYTOLOGY (08/31/2024 4:24 AM CDT) Status FINAL [facility] Container type TP [facility] Question/Probl em RESOLVED HPV [facility] FINAL RESOLUTION REACCESSION [facility] 08/31/2024 4:24 AM CDT 09/01/2024 8:35 PM CDT Narrative [facility] - 09/03/2024 4:14 PM CDT FASTING: UNKNOWN Cassidy Aparicio NP LAB BLOOD ORDERABLES Final Resul t [facility] [address] [place] [id number] * COLONOSCOPY (02/25/2023 5:56 PM SINGEING TORCH OPERATOR) Anatomical Region Laterality Modality Other Narrative Procedure Note Nola Marc MD - 02/25/2023 5:56 PM CST [facility] GI ENDOSCOPY Patient Name: Judson Orn Procedure Date: 02/25/2023 5:56 PM Date of : 1970 Admit Type: Outpatient Age: 52 Gender: Female Attending MD: Nola Marc M.D. Room: [facility] ENDOSCOPY ROOM 05 Note Status: Finalized [...] The scope was passed under direct vision.The [id number] colonoscope was introduced through theanus and advanced [...] On: 02/25/2023 5:56 PM Recognized by the [employer] [employer] for promoting quality in endoscopy us Nola Marc MD ENDOSCOPY PROCEDURES Final Resul t * Hepatitis C antibody (02/02/2020 1:00 PM CDT) Hep C Ab Nonreactive Nonreactive LONDONKATH CEE (CEZAR) Comment: Interpretive Data Nonreactive: Antibodies to [...] last revised on 2019. Testing performed by: [facility], [address] [place] [address]., [id number] Blood specimen (specimen) 02/02/2020 1:00 PM CDT 02/02/2020 7:05 PM CDT Cassidy Aparicio NP LAB MICROBIOLOGY - GENERAL ORDER CURT Final Result SAMUEL MIKE (CEZAR) [address] [facility] [place] [address] from Last 3 Months or Most Recently Relevant to Health Maintenance Insurance [facility] [place] [address] [facility] Advance Directives For more information, please contact: [phone] Documents on File Type Date Recorded Patient Community Aide Expl anation ADVANCE DIRECTIVE 07/07/2020 12:44 PM [...] 12:32 PM 12/10/2019 8:55 PM Care Teams Bradder Relationship Specialty Start Date End Date Marine Mayers MD PCP - General 07/12/16
[2024-11-19 12:58] VITALS: BP 133/68; PULSE 104; RESP 16; TEMP 36.6; O2SAT 95
--- NOTE | 2024-11-19 12:58 | ED.WOUNDLAC ---
HPI - Wound/Laceration General Chief Complaint: Wound/Laceration Stated Complaint: Skin Tear/Left Leg Time Seen by Provider: 11/19/24 13:03 Source: patient Mode of arrival: ambulatory Limitations: no limitations History of Present Illness HPI narrative: 53 yo F presents with skin tear to LLE. Hit leg against box at her house. Bleeding controlled on arrival. Pt had skin tear to RLE repaired with steri strips 5 days ago. Came in yesterday to have wound checked and was given abx. All systems reviewed and negative except as noted above. Related Data Home Medications ?Medication ?Instructions ?Recorded ?Confirmed ?Last Taken ?Type albuterol sulfate 90 mcg/actuation inhalation 11/15/24 Unknown History aerosol inhaler armodafinil 250 mg tablet mg PO 11/15/24 Unknown History cyclobenzaprine 10 mg tablet mg 11/15/24 Unknown History estradiol 0.01% (0.1 mg/gram) vaginal 11/15/24 Unknown History vaginal cream estradiol 0.1 mg/24 hr semiweekly 11/15/24 Unknown History transdermal patch furosemide 20 mg tablet mg 11/15/24 Unknown History galcanezumab-gnlm 120 mg/mL mg subcut 11/15/24 Unknown History subcutaneous pen injector (Emgality Pen) hydroxyzine HCl 25 mg tablet mg 11/15/24 Unknown History ibandronate 150 mg tablet mg PO 11/15/24 Unknown History methocarbamol 500 mg tablet mg 11/15/24 Unknown History morphine 30 mg tablet,extended mg PO 11/15/24 Unknown History release oxycodone-acetaminophen 5 mg-325 tablet 11/15/24 Unknown History mg tablet potassium citrate 10 mEq (1,080 meq PO 11/15/24 Unknown History mg) tablet,extended release pregabalin 200 mg capsule mg 11/15/24 Unknown History rabeprazole 20 mg tablet,delayed mg PO 11/15/24 Unknown History release zonisamide 100 mg capsule mg PO 11/15/24 Unknown History promethazine 25 mg tablet mg 11/19/24 Unknown History spironolactone 25 mg tablet mg 11/19/24 Unknown History sumatriptan succinate 100 mg tablet mg PO 11/19/24 Unknown History Allergies Allergy/AdvReac Type Severity Reaction Status Date / Time propoxyphene (From [place]) Allergy Unknown Unknown Verified 11/19/24 12:48 PMFSH Comments At time of signature, agree with nursing past medical, surgical, social and family history. There is no relevant family history pertinent to the presenting complaint. Exam Narrative: GENERAL: This is a well-nourished, well-developed patient, in no apparent distress. HEAD: normocephalic, atraumatic. EYES: PERRL. Sclera clear/white. Vision is grossly intact. EARS: External ears normal NOSE: External nose normal NECK: Neck supple, non-tender without lymphadenopathy, masses or thyromegaly. CARDIOVASCULAR: Regular rate and rhythm without murmurs, gallops, or rubs. RESPIRATORY: Clear to auscultation. Breath sounds equal bilaterally. No wheezes, rales, or rhonchi. SKIN: warm, Dry, no suspicious lesions or rash, good texture and turgor. skin tear, istap type 2, approx. 4x2 cm NEURO: awake, alert, and oriented to person, place and time. There were no obvious focal neurologic abnormalities. EXTREMITIES: No joint tenderness, effusion, or edema noted. Course Course Level of Care: Express Care Visit Vital Signs Vital signs: Vital Signs Temperature 36.6 C 11/19/24 12:58 Pulse Rate 104 H 11/19/24 12:58 Respiratory Rate 16 11/19/24 12:58 Blood Pressure 133/68 11/19/24 12:58 Pulse Oximetry 95 11/19/24 12:58 Oxygen Delivery Room Air 11/19/24 12:58 Temperature 36.6 C 11/19/24 12:58 Pulse Rate 104 H 11/19/24 12:58 Respiratory Rate 16 11/19/24 12:58 Blood Pressure 133/68 11/19/24 12:58 Pulse Oximetry 95 11/19/24 12:58 Oxygen Delivery Room Air 11/19/24 12:58 reviewed Procedures Laceration Laceration 1: Date: 11/19/24 Time: 13:20 Site: lower extremity Side (If applicable): left Size (cm): 4 Description: flap ====== Skin Level ====== Skin layer closed with: steri strips ====== Subcutaneous Layer ====== ====== Muscle Layer ====== ====== Tendon Layer ====== MDM - Wound/Laceration MDM Narrative Medical decision making narrative: skin tear repaired with steri strips. pt tolerated well. Taking doxycycline that was prescribed at yesterdays visit. ROM and distal NV intact. Discharge Plan Discharge Clinical Impression: ISTAP type 2 skin tear of left lower extremity Patient Disposition: Home Condition: Stable Instructions: Skin Tear (ED) Additional Instructions: Keep wound clean and dry. Keep steri strips dry. If they become wet, pat dry with a towel. Do not apply any lotions or ointments to steri strips. Let them fall off on their own. Continue taking antibiotic that was prescribed at yesterdays visit. Patient Language: Luxem[place]ish Prescriptions: No Action cyclobenzaprine 10 mg tablet methocarbamol 500 mg tablet rabeprazole 20 mg tablet,delayed release (DR/EC) PO estradiol 0.1 mg/24 hr patch semiweekly morphine 30 mg tablet extended release PO zonisamide 100 mg capsule PO oxycodone-acetaminophen 5-325 mg tablet potassium citrate 10 mEq (1,080 mg) tablet extended release PO hydroxyzine HCl 25 mg tablet furosemide 20 mg tablet estradiol 0.01 % (0.1 mg/gram) cream VAGINAL albuterol sulfate 90 mcg/actuation HFA aerosol inhaler INHALATION ibandronate 150 mg tablet PO pregabalin 200 mg capsule armodafinil 250 mg tablet PO Emgality Pen 120 mg/mL pen injector SUBCUT doxycycline monohydrate 100 mg capsule 100 mg PO BID 7 Days Qty: 14 0RF sumatriptan succinate 100 mg tablet PO spironolactone 25 mg tablet promethazine 25 mg tablet Follow-up/Referrals: PHYSICIAN NOT ON STAFF,NONSTAFF [Primary Care Provider] - Time of Disposition: 13:24
== END 2024-11-19 13:30 | disposition home or self-care (01) ==
PROVIDERS: Emergency Provider Nurse Practitioner Family
DX: S81.812A Laceration without foreign body, left lower leg, initial encounter (principal); W22.8XXA Striking against or struck by other objects, initial encounter; K21.9 Gastro-esophageal reflux disease without esophagitis; M79.7 Fibromyalgia; G47.419 Narcolepsy without cataplexy
CPT/HCPCS: 99212; G0463